=== PATIENT | male | born 1945 | race Caucasian/White ===

== ENCOUNTER 2019-09-08 15:02 | Emergency (ER) | payer MEDICARE, OTHER ==
[~2019-09-08] VITALS: Ht 183 cm; Wt 79.1 kg
[~2019-09-08 15:02] MED LIST: LEVE500T99 PO
[2019-09-08 16:00] VITALS: BP 125/79
[2019-09-08] MEDS ORDERED: LACTATED RINGERS 1,000 ML IV ONE (16:17)
[2019-09-08 16:26] LABS: BASOPHILS % (AUTO) 0 % (0-10); EOSINOPHILS % (AUTO) 0 % (0-10); HEMATOCRIT 36 % (40-54); LYMPHOCYTES # (AUTO) 0.7 X 10^3 (1.0-4.0); LYMPHOCYTES % (AUTO) 10 % (12-44); MEAN CORPUSCULAR HEMOGLOBIN 31 PG (25-34); MEAN CORPUSCULAR HGB CONC 33 G/DL (32-36); MEAN CORPUSCULAR VOLUME 92 FL (80-99); MEAN PLATELET VOLUME 10.4 FL (7.4-10.4); MONOCYTES # (AUTO) 0.2 X 10^3 (0.0-1.0); MONOCYTES % (AUTO) 3 % (0-12); NEUTROPHILS # (AUTO) 5.5 X 10^3 (1.8-7.8); NEUTROPHILS % (AUTO) 87 % (42-75); PLATELET COUNT 162 10^3/uL (130-400); RED CELL DISTRIBUTION WIDTH 13.3 % (10.0-14.5); WHITE BLOOD COUNT 6.3 10^3/uL (4.3-11.0)
[2019-09-08 16:30] VITALS: BP 124/74
[2019-09-08 16:40] LABS: ALANINE AMINOTRANSFERASE 17 U/L (0-55); ALBUMIN 4.2 GM/DL (3.2-4.5); ALKALINE PHOSPHATASE 48 U/L (40-136); BILIRUBIN,TOTAL 0.5 MG/DL (0.1-1.0); BUN/CREATININE RATIO 18; CALCIUM 9.3 MG/DL (8.5-10.1); CARBON DIOXIDE 28 MMOL/L (21-32); CHLORIDE 106 MMOL/L (98-107); GFR ESTIMATED > 60; GLUCOSE 113 MG/DL (70-105); SODIUM 141 MMOL/L (135-145); TOTAL PROTEIN 7.1 GM/DL (6.4-8.2)
[2019-09-08 16:53] LABS: BAND NEUTROPHILS 4 %; LYMPHOCYTES % (MANUAL) 12 %; MONOCYTES % (MANUAL) 3 %; NEUTROPHILS % (MANUAL) 81 %
--- NOTE | 2019-09-08 16:56 | ED Syncope ---
General Chief Complaint: Dizziness/Syncope Stated Complaint: FAINTED AT 2PM Nursing Triage Note: STATES PT HAD A SYNCOPAL EPISODE ABOUT 1400, TWO OTHER SLIGHT EPISODES, VOMITED ONCE. PT WAS IN ER [place] IN 06/2019 FOR THE SAME. HAPPENED IN A CHAIR, DENIES ANY FALL. History of Present Illness Date Seen by Provider: Sep 08, 2019 Time Seen by Provider: 16:00 Initial Comments 74-year-old male presents after an episode of a focal seizure at approximately 1400 today. He also reports 3 episodes of vomiting throughout today. He's been having approximately one to 2 episodes of syncope or focal seizures a month that began in April 2019. In June 2019 he was seen by a neurologist who started him on Keppra 500 mg twice daily. A few days after this he was started on Dilantin, by Dr. cai and he stopped the Keppra. Approximately 2 weeks ago he ran out of the Dilantin and did not get it refilled. He has been off all seizure medicine for 2 weeks and this is his first episode. His and son are present, he denies any episodes while on seizure medication. He reports eating breakfast this morning. However he vomited about noontime and then did not eat lunch after that. He is been taking minimal water today. He has no his tory of diabetes. He denies any complaints at this time. His is usually able to stimulate him by touching his face or yelling at him and he comes out of the episode. He is to follow-up with his neurologist on 09/14/19. Timing/Prior Episodes: Recent History Symptoms Prior to Episode: Lightheadedness Precipitating Factors: None Loss of Consciousness: No Loss of Consciousness Current Symptoms: Back to Normal; No Blurred Vision, No Chest Pain, No Diaphoresis, No Dizziness, No Headache, No Injury, No Lightheadedness, No Loss of Bladder Control, No Loss of Bowel Control, No Motionless, No Nausea, No Pale, No Shallow/Rapid Breathing, No Weak/Absent Pulse, No Weakness Allergies and Home Medications Allergies Coded Allergies: No Known Drug Allergies (Unverified , 07/13/19) Home Medications Levetiracetam 500 Mg Tablet, 500 MG PO BID Prescribed by: SAUL EMMANUEL on 07/13/19 0142 Patient Home Medication List Home Medication List Reviewed: Yes Review of Systems Constitutional: no symptoms reported, see HPI Cardiovascular: see HPI; No chest pain; syncope Psychiatric/Neurological: See HPI, Seizure All Other Systems Reviewed Negative Unless Noted: Yes Past Ymwjboi-Ckzbsy-Jrzdlf Hx Past Med/Social Hx: Reviewed Nursing Past Med/Soc Hx Patient Social History Alcohol Use: Denies Use Recreational Drug Use: No Smoking Status: Never a Smoker 2nd Hand Smoke Exposure: No Recent Foreign Travel: Yes ([facility]) Contact w/Someone Who Travel: Yes ([facility]) Recent Infectious Disease Expo: No Recent Hopitalizations: No Seasonal Allergies Seasonal Allergies: No Past Medical History Surgeries: Yes (neck/spinal surgery, hernia repair) Orthopedic Respiratory: Yes Sleep Apnea Currently Using CPAP: Yes Currently Using BIPAP: No Cardiac: Yes (LOW B/P) Neurological: Yes Spinal Cord Injury Genitourinary: No Gastrointestinal: Yes Chronic Constipation Musculoskeletal: Yes Back Injury Endocrine: No HEENT: No Cancer: No Psychosocial: No Integumentary: No Physical Exam Vital Signs Vital Signs - First Documented 09/08/19 15:34 Temp 36.6 Pulse 62 Resp 20 B/P (MAP) 134/70 (91) O2 Delivery Room Air Capillary Refill : Less Than 3 Seconds Height, Weight, BMI Height: '" Weight: lbs. oz. kg; 23.00 BMI Method: General Appearance: No Apparent Distress, WD/WN HEENT: PERRL/EOMI, TMs Normal, Normal ENT Inspection, Pharynx Normal Neck: Full Range of Motion, Normal Inspection, Non Tender, Supple Cardiovascular: Regular Rate, Rhythm, Normal Peripheral Pulses Respiratory: Chest Non Tender, Lungs Clear, Normal Breath Sounds Gastrointestinal: Normal Bowel Sounds, Non Tender, Soft Extremities: Normal Capillary Refill, Non Tender, Pedal Edema (right 2+, left 1+) Neurologic/Psychiatric: Alert, Oriented x3, No Motor/Sensory Deficits, Normal Mood/Affect Coordination/Gait: Normal Finger to Nose, Normal Gait Motor/Sensory: No Motor Deficit, No Sensory Deficit Skin: Normal Color, Warm/Dry Progress/Results/Core Measures Results/Orders Lab Results Laboratory Tests Test 09/08/19 16:04 09/08/19 16:10 09/08/19 17:16 Range/Units Glucometer 104 70-110 MG/DL White Blood Count 6.3 4.3-11.0 10^3/uL Red Blood Count 3.94 L 4.35-5.85 10^6/uL Hemoglobin 12.0 L 13.3-17.7 G/DL Hematocrit 36 L 40-54 % Mean Corpuscular Volume 92 80-99 FL Mean Corpuscular Hemoglobin 31 25-34 PG Mean Corpuscular Hemoglobin Concent 33 32-36 G/DL Red Cell Distribution Width 13.3 10.0-14.5 % Platelet Count 162 130-400 10^3/uL Mean Platelet Volume 10.4 7.4-10.4 FL Neutrophils (%) (Auto) 87 H 42-75 % Lymphocytes (%) (Auto) 10 L 12-44 % Monocytes (%) (Auto) 3 0-12 % Eosinophils (%) (Auto) 0 0-10 % Basophils (%) (Auto) 0 0-10 % Neutrophils # (Auto) 5.5 1.8-7.8 X 10^3 Lymphocytes # (Auto) 0.7 L 1.0-4.0 X 10^3 Monocytes # (Auto) 0.2 0.0-1.0 X 10^3 Eosinophils # (Auto) 0.0 0.0-0.3 10^3/uL Basophils # (Auto) 0.0 0.0-0.1 10^3/uL Neutrophils % (Manual) 81 % Lymphocytes % (Manual) 12 % Monocytes % (Manual) 3 % Band Neutrophils 4 % Sodium Level 141 135-145 MMOL/L Potassium Level 4.0 3.6-5.0 MMOL/L Chloride Level 106 98-107 MMOL/L Carbon Dioxide Level 28 21-32 MMOL/L Anion Gap 7 5-14 MMOL/L Blood Urea Nitrogen 14 7-18 MG/DL Creatinine 0.80 0.60-1.30 MG/DL Estimat Glomerular Filtration Rate > 60 BUN/Creatinine Ratio 18 Glucose Level 113 H 70-105 MG/DL Calcium Level 9.3 8.5-10.1 MG/DL Corrected Calcium 9.1 8.5-10.1 MG/DL Total Bilirubin 0.5 0.1-1.0 MG/DL Aspartate Amino Transf (AST/SGOT) 24 5-34 U/L Alanine Aminotransferase (ALT/SGPT) 17 0-55 U/L Alkaline Phosphatase 48 40-136 U/L Troponin I < 0.028 <0.028 NG/ML Total Protein 7.1 6.4-8.2 GM/DL Albumin 4.2 3.2-4.5 GM/DL Thyroid Stimulating Hormone (TSH) 1.38 0.35-4.94 UIU/ML Urine Color YELLOW Urine Clarity CLEAR Urine pH 6.5 5-9 Urine Specific [place] 1.015 L 1.016-1.022 Urine Protein NEGATIVE NEGATIVE Urine Glucose (UA) NEGATIVE NEGATIVE Urine Ketones TRACE H NEGATIVE Urine Nitrite NEGATIVE NEGATIVE Urine Bilirubin NEGATIVE NEGATIVE Urine Urobilinogen 0.2 < = 1.0 MG/DL Urine Leukocyte Esterase NEGATIVE NEGATIVE Urine RBC (Auto) NEGATIVE NEGATIVE Urine RBC RARE /HPF Urine WBC RARE /HPF Urine Squamous Epithelial Cells 0-2 /HPF Urine Crystals NONE /LPF Urine Bacteria NEGATIVE /HPF Urine Casts NONE /LPF Urine Mucus SMALL H /LPF Urine Culture Indicated NO My Orders Orders - RUBI HA Accucheck Stat ONCE (09/08/19 15:29) Cbc With Automated Diff (09/08/19 16:17) Comprehensive Metabolic Panel (09/08/19 16:17) Dilantin (Phenytoin) (09/08/19 16:17) Thyroid Stimulating Hormone (09/08/19 16:17) Ua Culture If Indicated (09/08/19 16:17) Troponin I (09/08/19 16:17) Ed Iv/Invasive Line Start (09/08/19 16:17) Lactated Ringers (Lr 1000 Ml Iv Solution (09/08/19 16:17) Ekg Tracing (09/08/19 16:17) Manual Differential (09/08/19 16:10) Phenytoin Capsule (Dilantin Capsule) (09/08/19 17:30) Medications Given in ED Current Medications Medications Dose Ordered Sig/Jonnie Route Start Time Stop Time Status Last Admin Dose Admin Lactated Ringer's 1,000 ml @ 0 mls/hr Q0M ONCE IV 09/08/19 16:17 09/08/19 16:19 DC 09/08/19 16:27 0 MLS/HR Phenytoin Sodium 100 mg ONCE ONCE PO 09/08/19 17:30 09/08/19 17:31 DC 09/08/19 17:52 100 MG Vital Signs/I&O 09/08/19 15:34 Temp 36.6 Pulse 62 Resp 20 B/P (MAP) 134/70 (91) O2 Delivery Room Air Blood Pressure Mean: 91 FSBG Bedside Testing Finger Stick Blood Glucose: 104 Progress Progress Note : Time: 16:00 Progress Note Patient seen and evaluated, will obtain labs, LR 1 L IV here and continue to monitor. 1640 No further episodes in ED. Awaiting lab results. No n/v. 1700 Labs all WNL. Patient agreeable to resuming Dilantin. Will give her evening dose of Dilantin now, the patient will get his prescription refilled in [place] for tomorrow's doses. He will keep his scheduled appointment with neurology in [place] for next week. 1730 discharge instructions and return precautions reviewed with the patient and family. All questions answered. Initial ECG Impression Date: Sep 08, 2019 Initial ECG Impression Time: 16:10 Initial ECG Rate: 57 Initial ECG Rhythm: Normal Sinus Initial ECG Intervals: Normal Initial ECG Intervals MI 200, QRSD 106, QT 440 QTC 429. Mackay P 67, QRS 3, T 37. Initial ECG Impression: Normal Initial ECG Comparisson: No Previous ECG Available Comment Reviewed with Dr. Moody, agreed with interpretation. Departure Impression Primary Impression: Focal seizure Disposition: 01 HOME, SELF-CARE Condition: Improved Departure-Patient Inst. Decision time for Depature: 17:30 Referrals: DANIELLE CAI MD (PCP/Family) Primary Care Physician Patient Instructions: Seizures, Adult (DC) Add. Discharge Instructions: Keep taking your Dilantin, get it refilled at [facility] pharmacy. You have been giving her evening dose tonight, start taking your prescription tomorrow morning. Keep your scheduled appointment with the neurologist in [place] for early next week. Track any seizure activity. No driving, until evaluated by your neurologist and cleared. Return to the emergency department for new, urgent health care needs. All discharge instructions reviewed with patient and/or family. Voiced understanding. Copy Copies To 1: DANIELLE CAI MD, AMY ARNP Sep 08, 2019 16:56
[2019-09-08 17:00] VITALS: BP 126/78
[2019-09-08] MEDS ORDERED: PHENYTOIN 100 MG (DILANTIN) CAP PO ONE (17:30)
[2019-09-08 17:45] VITALS: BP 120/72
[2019-09-08 17:49] LABS: BILIRUBIN,URINE NEGATIVE (NEGATIVE); CLARITY,URINE CLEAR; COLOR,URINE YELLOW; GLUCOSE, URINE (UA) NEGATIVE (NEGATIVE); KETONES,URINE TRACE (NEGATIVE); LEUKOCYTE ESTERASE ,URINE NEGATIVE (NEGATIVE); NITRITE,URINE NEGATIVE (NEGATIVE); PH,URINE 6.5 (5-9); PROTEIN,URINE NEGATIVE (NEGATIVE)
[2019-09-08 18:03] LABS: BACTERIA,URINE NEGATIVE /HPF; RBC,URINE RARE /HPF; SQUAMOUS EPITHELIAL CELL,UR 0-2 /HPF; WBC,URINE RARE /HPF
== END 2019-09-08 16:45 | disposition home or self-care (01) ==
LOC: EDUNIT# 15:02 → ER 15:06
DX: G40.109 Localization-related (focal) (partial) symptomatic epilepsy and epileptic syndromes with simple partial seizures, not intractable, without status epilepticus (principal)
CPT/HCPCS: 36415; 80053; 80185; 81000; 82962; 84443; 84484; 85007; 85027; 93005

== ENCOUNTER 2023-06-04 13:13 | Inpatient (IN) | payer MEDICARE, OTHER ==
[~2023-06-04] VITALS: Ht 180 cm; Wt 72.8 kg
[2023-06-04] MEDS ORDERED: ACETAMINOPHEN 500 MG TABLET PO ONE (14:00)
[2023-06-04] MEDS ORDERED: NS IV 1000 ML 1,000 ML IV SCH ×2 (14:00→15:30)
[2023-06-04 14:04] LABS: BASOPHILS % (AUTO) 0 % (0-10); EOSINOPHILS % (AUTO) 0 % (0-10); HEMATOCRIT 36 % (40-54); HEMOGLOBIN 12.5 g/dL (13.3-17.7); LYMPHOCYTES # (AUTO) 0.5 10^3/uL (1.0-4.0); LYMPHOCYTES % (AUTO) 5 % (12-44); MEAN CORPUSCULAR HEMOGLOBIN 32 pg (25-34); MEAN CORPUSCULAR HGB CONC 34 g/dL (32-36); MEAN CORPUSCULAR VOLUME 92 fL (80-99); MONOCYTES # (AUTO) 0.9 10^3/uL (0.0-1.0); MONOCYTES % (AUTO) 10 % (0-12); NEUTROPHILS % (AUTO) 85 % (42-75); PLATELET COUNT 166 10^3/uL (130-400); WHITE BLOOD COUNT 9.4 10^3/uL (4.3-11.0)
--- NOTE | 2023-06-04 14:04 | ED General ---
General Chief Complaint: General Problems/Pain Stated Complaint: FALL/WEAKNESS Nursing Triage Note: PT ARRIVES TO ER VIA W/C WITH SPOUSE. SPOUSE REPORTS INCREASE IN WEAKNESS, CONFUSION. REPORTS SEVERAL FALLS RECENTLY. PT SENT FORM CLINIC. Source of Information: Patient, Family Exam Limitations: Other (clinical condition) (PATRICE HOBSON APRN) History of Present Illness Date Seen by Provider: Jun 04, 2023 Time Seen by Provider: 13:50 Initial Comments 77-year-old male presents to the ER with for concerns of multiple falls, increased weakness, confusion, and cough for the last 2 days. When asked patient why he was here, he just gave me a blank stare. But he was able to answer other questions. He denied headache, chest pain, shortness of air, abdominal pain, nausea, vomiting, diarrhea, dysuria, sore throat. He is alert, oriented to place and month. He did not know the year. Patient was found to have a fever here. reports that patient has had multiple falls, yesterday he fell and hit his head, presents with laceration to the top/posterior aspect of his head. He has a small laceration of next to his right eyebrow, states that it was from the fall today. 1 other abrasion to his right hand, no other injuries noted. (PATRICE HOBSON APRN) Allergies and Home Medications Allergies Coded Allergies: No Known Drug Allergies (Unverified , 07/13/19) Patient Home Medication List Home Medication List Reviewed: Yes (PATRICE HOBSON APRN) Aspirin (Aspirin EC) 81 Mg Tablet., 81 MG PO Q48H, (Reported) Entered as Reported by: ELIO JOHNSON on 06/05/231440 Last Action: Reviewed Finasteride (Finasteride) 5 Mg Tablet, 5 MG PO DAILY, (Reported) Entered as Reported by: ELIO JOHNSON on 06/05/231440 Last Action: Reviewed Levothyroxine Sodium (Levothyroxine Sodium) 50 Mcg Tablet, 50 MCG PO DAILY, (Reported) Entered as Reported by: ELIO JOHNSON on 06/05/231440 Last Action: Reviewed Midodrine HCl (Midodrine HCl) 5 Mg Tablet, 5 MG PO DAILY, (Reported) Entered as Reported by: ELIO JOHNSON on 06/05/231440 Last Action: Reviewed Multivitamin (Multivitamin) 1 Each Tablet, 1 EACH PO DAILY, (Reported) Entered as Reported by: ELIO JOHNSON on 06/05/231440 Last Action: Reviewed Discontinued Medications Levetiracetam (Keppra) 500 Mg Tablet, 500 MG PO BID Discontinued Reason: No Longer Taking Prescribed by: SAUL EMMANUEL on 07/13/19 1747 Last Action: Discontinued Review of Systems Review of Systems Constitutional: see HPI (PATRICE HOBSON APRN) Past Aexypia-Ltgqnf-Xxqxdc Hx Patient Social History Tobacco Use?: No Use of E-Cig and/or Vaping dev: No Substance use?: No Alcohol Use?: No Pt feels they are or have been: No (PATRICE HOBSON APRN) Immunizations Up To Date First/Initial COVID19 Vaccinat: RECEIVED, UNK WHEN Second COVID19 Vaccination Delfino: RECEIVED, UNK WHEN (PATRICE HOBSON APRN) Seasonal Allergies Seasonal Allergies: No (PATRICE HOBSON APRN) Past Medical History Surgeries: Yes (neck/spinal surgery, hernia repair) Orthopedic Respiratory: Yes Sleep Apnea Currently Using CPAP: Yes Currently Using BIPAP: No Cardiac: Yes (LOW B/P) Neurological: Yes Spinal Cord Injury Genitourinary: No Gastrointestinal: Yes Chronic Constipation Musculoskeletal: Yes Back Injury Endocrine: No HEENT: No Cancer: No Psychosocial: No Integumentary: No (PATRICE HOBSON APRN) Physical Exam-Suspected Sepsis Physical Exam Vital Signs Vital Signs - First Documented 06/04/23 06/04/23 13:26 20:36 Temp 39.1 Pulse 75 Resp 16 B/P (MAP) 120/69 (86) Pulse Ox 92 O2 Delivery Room Air FiO2 45 (JOSUE REYES MD) Vital Signs Capillary Refill : (PATRICE HOBSON APRN) Blood Pressure Mean: 86 Height, Weight, BMI Height: '" Weight: lbs. oz. kg; 24.00 BMI Method: General Appearance: No Apparent Distress, WD/WN Neck: Normal Inspection, Supple Respiratory: No Accessory Muscle Use, No Respiratory Distress, Decreased Breath Sounds Cardiovascular: Regular Rate, Rhythm Extremity: Normal Inspection, Normal Range of Motion Neurologic/Psychiatric: Alert; No Oriented x3; Normal Mood/Affect Skin: normal color, warm/dry (PATRICE HOBSON APRN) Focused Exam Lactate Level 06/04/23 13:25: Lactic Acid Level 0.86 (JOSUE REYES MD) Progress/Results/Core Measures Suspected Sepsis SIRS Temperature: Pulse: 75 Respiratory Rate: 16 Laboratory Tests 06/04/23 13:25: White Blood Count 9.4 Blood Pressure 120 /69 Mean: 86 06/04/23 13:25: Lactic Acid Level 0.86 Laboratory Tests 06/04/23 13:25: Creatinine 0.91, INR Comment 1.1, Platelet Count 166, Total Bilirubin 0.7 (PATRICE HOBSON APRN) Results/Orders Lab Results Laboratory Tests Test 06/04/23 13:25 06/04/23 19:45 06/05/23 05:15 06/06/23 04:26 Range/Units White Blood Count 9.4 8.0 8.7 4.3-11.0 10^3/uL Red Blood Count 3.94 L 3.95 L 3.47 L 4.30-5.52 10^6/uL Hemoglobin 12.5 L 12.3 L 11.0 L 13.3-17.7 g/dL Hematocrit 36 L 37 L 32 L 40-54 % Mean Corpuscular Volume 92 94 93 80-99 fL Mean Corpuscular Hemoglobin 32 31 32 25-34 pg Mean Corpuscular Hemoglobin Concent 34 33 34 32-36 g/dL Red Cell Distribution Width 13.0 13.2 13.2 10.0-14.5 % Platelet Count 166 145 138 130-400 10^3/uL Mean Platelet Volume 11.0 11.5 11.2 9.0-12.2 fL Immature Granulocyte % (Auto) 0 0 0 % Neutrophils (%) (Auto) 85 H 79 H 80 H 42-75 % Lymphocytes (%) (Auto) 5 L 11 L 12 12-44 % Monocytes (%) (Auto) 10 9 9 0-12 % Eosinophils (%) (Auto) 0 0 0 0-10 % Basophils (%) (Auto) 0 0 0 0-10 % Neutrophils # (Auto) 8.0 H 6.4 6.9 1.8-7.8 10^3/uL Lymphocytes # (Auto) 0.5 L 0.9 L 1.0 1.0-4.0 10^3/uL Monocytes # (Auto) 0.9 0.8 0.8 0.0-1.0 10^3/uL Eosinophils # (Auto) 0.0 0.0 0.0 0.0-0.3 10^3/uL Basophils # (Auto) 0.0 0.0 0.0 0.0-0.1 10^3/uL Immature Granulocyte # (Auto) 0.0 0.0 0.0 0.0-0.1 10^3/uL Neutrophils % (Manual) 84 % Lymphocytes % (Manual) 6 % Monocytes % (Manual) 10 % Blood Morphology Comment NORMAL Prothrombin Time 15.1 H 12.2-14.7 SEC INR Comment 1.1 0.8-1.4 Activated Partial Thromboplast Time 35 24-35 SEC Sodium Level 134 L 141 139 135-145 MMOL/L Potassium Level 3.7 4.4 4.5 3.6-5.0 MMOL/L Chloride Level 101 109 H 107 98-107 MMOL/L Carbon Dioxide Level 23 23 26 21-32 MMOL/L Anion Gap 10 9 6 5-14 MMOL/L Blood Urea Nitrogen 20 H 16 20 H 7-18 MG/DL Creatinine 0.91 0.79 0.78 0.60-1.30 MG/DL Estimat Glomerular Filtration Rate 86 90 91 BUN/Creatinine Ratio 22 20 26 Glucose Level 106 H 109 H 115 H 70-105 MG/DL Lactic Acid Level 0.86 0.50-2.00 MMOL/L Calcium Level 8.4 L 8.4 L 8.2 L 8.5-10.1 MG/DL Corrected Calcium 8.4 L 8.7 8.8 8.5-10.1 MG/DL Total Bilirubin 0.7 0.4 0.4 0.1-1.0 MG/DL Aspartate Amino Transf (AST/SGOT) 50 H 40 H 36 H 5-34 U/L Alanine Aminotransferase (ALT/SGPT) 26 22 23 0-55 U/L Alkaline Phosphatase 36 L 34 L 29 L 40-136 U/L Total Protein 7.3 6.7 6.2 L 6.4-8.2 GM/DL Albumin 4.0 3.6 3.3 3.2-4.5 GM/DL Influenza Type A (RT-PCR) Not Detected Not Detecte Influenza Type B (RT-PCR) Not Detected Not Detecte SARS-CoV-2 RNA (RT-PCR) Detected H Not Detecte Urine Color YELLOW Urine Clarity CLEAR Urine pH 5.0 5-9 Urine Specific [place] <=1.005 1.016-1.022 Urine Protein NEGATIVE NEGATIVE Urine Glucose (UA) NEGATIVE NEGATIVE Urine Ketones 1+ H NEGATIVE Urine Nitrite NEGATIVE NEGATIVE Urine Bilirubin NEGATIVE NEGATIVE Urine Urobilinogen 0.2 < = 1.0 MG/DL Urine Leukocyte Esterase NEGATIVE NEGATIVE Urine RBC (Auto) TRACE H NEGATIVE Urine RBC NONE /HPF Urine WBC NONE /HPF Urine Squamous Epithelial Cells RARE /HPF Urine Crystals NONE /LPF Urine Bacteria NEGATIVE /HPF Urine Casts NONE /LPF Urine Mucus NEGATIVE /LPF Urine Culture Indicated CULTURE PENDING Percent Immature Platelet Fraction 4.9 0.0-7.6 % (JOSUE REYES MD) Micro Results Microbiology 06/04/23 Blood Culture - Preliminary, Resulted 06/04/23 Blood Culture - Preliminary, Resulted (JOSUE REYES MD) My Orders Orders - JOSUE REYES MD Ekg Tracing (06/04/23 13:31) (JOSUE REYES MD) Vital Signs/I&O 06/05/23 06/05/23 06/05/23 06/05/23 19:48 20:00 20:38 22:00 Temp 38.9 Pulse 64 Resp 14 B/P (MAP) 103/59 (74) Pulse Ox 100 98 99 94 O2 Delivery Nasal Cannula Nasal Cannula Nasal Cannula NIV CPAP O2 Flow Rate 5.00 5.00 4.00 FiO2 45 06/06/23 06/06/23 06/06/23 06/06/23 00:00 00:17 03:15 04:00 Pulse 48 51 45 44 Resp 11 13 11 B/P (MAP) 119/65 (83) 126/78 (94) Pulse Ox 100 100 100 O2 Delivery Nasal Cannula Nasal Cannula O2 Flow Rate 5.00 45.00 5.00 (JOSUE REYES MD) Vital Signs/I&O Capillary Refill : (PATRICE HOBSON APRN) Blood Pressure Mean: 86 Progress Note : Progress Note Patient seen and evaluated, resting comfortably in bed, no acute distress. Based on exam and symptoms, differential diagnoses include but is not limited to COVID, flu, pneumonia, UTI, sepsis. Septic work-up initiated including CBC, CMP, coags, blood cultures x2, lactic acid, sputum culture, urinalysis, chest x- ray, COVID and flu swabs. CT head and neck ordered due to multiple falls and reports of pain in his head. 1556 Labs and imaging reviewed. CBC shows normal white count, hemoglobin slightly decreased at 12.5, hematocrit slightly decreased 36, neutrophil p ercentage 85. CMP shows slight decrease sodium 134, BUN 20, creatinine normal 0.91, GFR 86, calcium slightly low 8.4, AST slightly elevated 50. Lactic acid normal. Coags show slightly elevated PT 15.1. Patient is positive for COVID. Flu negative. CT of the head and neck shows no acute findings. There is moderate to severe spinal canal stenosis at C3-C4. Chest x-ray shows multifocal consolidation in the lung bases which may represent pneumonia or aspiration. Rocephin and azithromycin ordered for pneumonia. Nursing staff reports that patient's oxygen dropped to 88% on room air while he was sleeping. Patient's does report that he wears a CPAP at night to sleep. Nursing staff placed him on a couple liters of O2 via nasal cannula. Blood pressure has been soft, it was in the 100 systolic, now it is in the 90s systolic. Patient does have midodrine on his chart, hypotension could be chronic and not related to infection. Due to significant weakness, hypotension, and COVID-pneumonia, I called and spoke with Dr. Olson, hospitalist, for admission. She agrees to admit patient. She would like patient to go to the stepdown unit as an inpatient. She will place admission orders. She would like me to order Decadron 4 mg IV. This has been ordered. (PATRICE HOBSON APRN) Diagnostic Imaging Diagonstic Imaging: CT Plain Films/CT/US/NM/MRI: c-spine, head Comments [facility]. [place], [place] NAME: LETI GONSALES MED REC#: [id number] PT STATUS: REG ER : 1945 PHYSICIAN: PATRICE HOBSON APRN ADMIT DATE: 06/04/23/ER Signed Date of Exam:06/04/23 CT HEAD/CERVICAL SPINE WO PROCEDURE: CT head and CT cervical spine without contrast. TECHNIQUE: Multiple contiguous axial images were obtained through the brain and cervical spine without the use of intravenous contrast. Sagittal and coronal reformations through the cervical spine were then performed. Auto Exposure Controls were utilized during the CT exam to meet ALARA standards for radiation dose reduction. INDICATION: Increased weakness, confusion, fall, headache. COMPARISON: None. FINDINGS: Scattered hypoattenuation within the periventricular and subcortical white matter. Generalized prominence of ventricles and cortical sulci. The andrade-white matter differentiation is preserved. The ventricles and cortical sulci are normal. No midline shift or mass effect. The sella is normal. The subarachnoid cisterns are maintained. There are scattered calcifications of the intracranial vasculature. The skull is intact. The paranasal sinuses and mastoids are clear. The globes and orbits are intact. There is straightening of the cervical lordosis. ACDF from CT for to C7. Moderate multilevel facet arthritis. Moderate to severe multilevel spinal canal or neuroforaminal stenosis. The spinal canal stenosis is most severe at C3-C4 with moderate to severe spinal canal stenosis. IMPRESSION: No acute intracranial hemorrhage. No large vascular territory fitzgerald-white loss. No intracranial mass, midline shift, or hydrocephalus. No acute fracture-dislocation of the cervical spine. Moderate to severe spinal canal stenosis at C3-C4. Dictated by: Dictated on workstation # [id number] Dict: 06/04/23 1445 Trans: 06/04/23 144 [facility] [place] [id number] Interpreted by: ETELVINA ESTEBAN DO Electronically signed by: ETELVINA ESTEBAN DO 06/04/23 1449 Diagonstic Imaging: Xray Plain Films/CT/US/NM/MRI: chest Comments [facility] [place] [place] NAME: LETI GONSALES MED REC#: [id number] PT STATUS: REG ER : 1945 PHYSICIAN: PATRICE HOBSON APRN ADMIT DATE: 06/04/23/ER Signed Date of Exam:06/04/23 CHEST 1 VIEW, AP/PA ONLY CHEST 1 VIEW, AP/PA ONLY Indication: Cough and fever Comparison: 07/10/2019 Findings: Patchy consolidations have developed in both lung bases. Subpleural scarring is noted. No pleural effusion or pneumothorax. Heart is normal in size. Impression: 1. Multifocal consolidations in the lung bases may represent pneumonia or aspiration. 2. Advise followup PA and lateral chest radiographs in 4 weeks after appropriate medical management to ensure resolution. Dictated by: Dictated on workstation # [id number] Dict: 06/04/231509 Trans: 06/04/231509 [facility] [phone] Interpreted by: CARLIE STINSON MD Electronically signed by: CARLIE STINSON MD 06/04/231509 (PATRICE HOBSON APRN) Departure Communication (Admissions) Time/Spoke to Admitting Phy: 15:56 Dr. Olson, hospitalist, see progress note. (PATRICE HOBSON APRN) Impression Primary Impression: COVID Additional Impressions: Pneumonia due to 2019 novel coronavirus Weakness Hypotension Disposition: ADMITTED INPATIENT Condition: Stable Admissions Decision to Admit Reason: Admit from ER (General) Decision to Admit/Date: Jun 04, 2023 Time/Decision to Admit Time: 15:56 (PATRICE HOBSON APRN) Departure-Patient Inst. Referrals: CONSUELO RICHARD MD (PCP) Primary Care Physician DANIELLE CAI MD (Family) Primary Care Physician ATTENDING PHYSICIAN NOTE: I was physically present as attending physician in the emergency department during the care of this patient, but I was not directly involved in the decision making or delivery of care for this patient. (JOSUE REYES MD) PATRICE HOBSON APRN Jun 04, 2023 14:04 JOSUE REYES MD Jun 06, 2023 07:28
[2023-06-04 14:09] LABS: INR 1.1 (0.8-1.4); PROTHROMBIN TIME PATIENT 15.1 SEC (12.2-14.7)
[2023-06-04 14:11] LABS: POTASSIUM 3.7 MMOL/L (3.6-5.0)
[2023-06-04 14:13] LABS: CALCIUM 8.4 MG/DL (8.5-10.1)
[2023-06-04 14:14] LABS: TOTAL PROTEIN 7.3 GM/DL (6.4-8.2)
[2023-06-04 14:16] LABS: BILIRUBIN,TOTAL 0.7 MG/DL (0.1-1.0)
[2023-06-04 14:17] LABS: CREATININE SERUM 0.91 MG/DL (0.60-1.30)
[2023-06-04 14:26] LABS: LYMPHOCYTES % (MANUAL) 6 %; MONOCYTES % (MANUAL) 10 %; NEUTROPHILS % (MANUAL) 84 %; RBC MORPH NORMAL
--- NOTE | 2023-06-04 14:51 | Diagnostic Imaging Report ---
PROCEDURE: CT head and CT cervical spine without contrast. TECHNIQUE: Multiple contiguous axial images were obtained through the brain and cervical spine without the use of intravenous contrast. Sagittal and coronal reformations through the cervical spine were then performed. Auto Exposure Controls were utilized during the CT exam to meet ALARA standards for radiation dose reduction. INDICATION: Increased weakness, confusion, fall, headache. COMPARISON: None. FINDINGS: Scattered hypoattenuation within the periventricular and subcortical white matter. Generalized prominence of ventricles and cortical sulci. The andrade-white matter differentiation is preserved. The ventricles and cortical sulci are normal. No midline shift or mass effect. The sella is normal. The subarachnoid cisterns are maintained. There are scattered calcifications of the intracranial vasculature. The skull is intact. The paranasal sinuses and mastoids are clear. The globes and orbits are intact. There is straightening of the cervical lordosis. ACDF from CT for to C7. Moderate multilevel facet arthritis. Moderate to severe multilevel spinal canal or neuroforaminal stenosis. The spinal canal stenosis is most severe at C3-C4 with moderate to severe spinal canal stenosis. IMPRESSION: No acute intracranial hemorrhage. No large vascular territory fitzgerald-white loss. No intracranial mass, midline shift, or hydrocephalus. No acute fracture-dislocation of the cervical spine. Moderate to severe spinal canal stenosis at C3-C4. Dictated by: Dictated on workstation # [id number]
--- NOTE | 2023-06-04 15:12 | Diagnostic Imaging Report ---
CHEST 1 VIEW, AP/PA ONLY Indication: Cough and fever Comparison: 07/10/2019 Findings: Patchy consolidations have developed in both lung bases. Subpleural scarring is noted. No pleural effusion or pneumothorax. Heart is normal in size. Impression: 1. Multifocal consolidations in the lung bases may represent pneumonia or aspiration. 2. Advise followup PA and lateral chest radiographs in 4 weeks after appropriate medical management to ensure resolution. Dictated by: Dictated on workstation # [id number]
[2023-06-04] MEDS ORDERED: AZITHROMYCIN INJECTION 500 MG in NS (IVPB) 250 ML 250 ML IV ONE ×2 (15:30→17:30)
[2023-06-04] MEDS ORDERED: cefTRIAXone IV/IM 1,000 MG in NS (IVPB) 50 ML 50 ML IV ONE (15:30)
[2023-06-04] MEDS ORDERED: dexAMETHasone INJ 4 MG/ML SDV IV ONE (16:00)
[2023-06-04] MEDS ORDERED: ONDANSETRON INJECTION 4 MG/2 ML (SDV) IV PRN (17:30)
[2023-06-04] MEDS ORDERED: diphenhydrAMINE 25 MG TABLET PO PRN (17:30)
[2023-06-04] MEDS ORDERED: MILK OF MAGNESIA 400 MG/5 ML 30 ML UDC PO PRN (17:30)
[2023-06-04] MEDS ORDERED: LACTULOSE SYRUP 10GM/15ML 30ML UDC PO PRN (17:30)
[2023-06-04] MEDS ORDERED: ACETAMINOPHEN 325 MG TABLET PO PRN (17:30)
[2023-06-04] MEDS ORDERED: ANTACID SUSPENSION 30 ML UDC PO PRN (17:30)
[2023-06-04] MEDS ORDERED: CALCIUM CARBONATE 500 MG CHEW TABLET PO PRN (17:30)
[2023-06-04] MEDS ORDERED: diphenhydrAMINE INJ 50 MG/ML VIAL IVP PRN (17:30)
[2023-06-04] MEDS ORDERED: oxyCODONE IMMEDIATE RELEASE 5 MG TABLET PO PRN (17:30)
[2023-06-04] MEDS ORDERED: HYDROmorphone INJECTION 2 MG/ML VIAL IV PRN (17:30)
[2023-06-04] MEDS ORDERED: ONDANSETRON 4 MG ORAL DISSOLVE TABLET PO PRN (17:30)
[2023-06-04] MEDS ORDERED: BISACODYL 10 MG SUPPOSITORY PR PRN (17:30)
[2023-06-04 17:33] VITALS: BP 103/60
[2023-06-04 18:01] VITALS: BP 130/60
[2023-06-04] MEDS: NS IV 1000 ML 1,000 ML IV SCH (18:16)
[2023-06-04] MEDS: ENOXAPARIN 40 MG/0.4 ML SYRINGE SC SCH (18:17)
[2023-06-04 18:54] VITALS: BP 109/57
[2023-06-04 19:56] LABS: BACTERIA,URINE NEGATIVE /HPF; BILIRUBIN,URINE NEGATIVE (NEGATIVE); CLARITY,URINE CLEAR; COLOR,URINE YELLOW; GLUCOSE, URINE (UA) NEGATIVE (NEGATIVE); KETONES,URINE 1+ (NEGATIVE); LEUKOCYTE ESTERASE ,URINE NEGATIVE (NEGATIVE); NITRITE,URINE NEGATIVE (NEGATIVE); PROTEIN,URINE NEGATIVE (NEGATIVE); SQUAMOUS EPITHELIAL CELL,UR RARE /HPF
[2023-06-04 20:00] VITALS: BP 114/64
[2023-06-04] MEDS: guaiFENesin 600 MG TABLET PO SCH (20:28)
[2023-06-04] MEDS: DOCUSATE SODIUM 100 MG CAPSULE PO SCH (20:28)
[2023-06-04] MEDS: SENNOSIDES 8.6 MG TABLET PO SCH (20:28)
[2023-06-04 22:00] VITALS: BP 116/61
[2023-06-05] VITALS (9 sets, daily range): BP systolic 92–136; BP diastolic 51–73
[2023-06-05 05:50] LABS: BASOPHILS % (AUTO) 0 % (0-10); EOSINOPHILS % (AUTO) 0 % (0-10); HEMATOCRIT 37 % (40-54); HEMOGLOBIN 12.3 g/dL (13.3-17.7); LYMPHOCYTES # (AUTO) 0.9 10^3/uL (1.0-4.0); LYMPHOCYTES % (AUTO) 11 % (12-44); MEAN CORPUSCULAR HEMOGLOBIN 31 pg (25-34); MEAN CORPUSCULAR HGB CONC 33 g/dL (32-36); MEAN CORPUSCULAR VOLUME 94 fL (80-99); MEAN PLATELET VOLUME 11.5 fL (9.0-12.2); MONOCYTES # (AUTO) 0.8 10^3/uL (0.0-1.0); MONOCYTES % (AUTO) 9 % (0-12); NEUTROPHILS # (AUTO) 6.4 10^3/uL (1.8-7.8); NEUTROPHILS % (AUTO) 79 % (42-75); PLATELET COUNT 145 10^3/uL (130-400)
[2023-06-05 06:14] LABS: ALBUMIN 3.6 GM/DL (3.2-4.5); BILIRUBIN,TOTAL 0.4 MG/DL (0.1-1.0); CALCIUM 8.4 MG/DL (8.5-10.1); CREATININE SERUM 0.79 MG/DL (0.60-1.30); POTASSIUM 4.4 MMOL/L (3.6-5.0); TOTAL PROTEIN 6.7 GM/DL (6.4-8.2)
[2023-06-05] MEDS: NS IV 1000 ML 1,000 ML IV SCH ×2 (07:42→21:44)
[2023-06-05] MEDS: dexAMETHasone INJ 10 MG/ML 1 ML VIAL IV SCH (07:43)
[2023-06-05] MEDS: RT-ALBUTEROL HFA 8.5 GM INHALER IH SCH ×2 (08:00→20:38)
[2023-06-05] MEDS: DOCUSATE SODIUM 100 MG CAPSULE PO SCH ×2 (08:35→21:36)
[2023-06-05] MEDS: SENNOSIDES 8.6 MG TABLET PO SCH ×2 (08:35→21:36)
[2023-06-05] MEDS: guaiFENesin 600 MG TABLET PO SCH ×2 (08:50→21:43)
[2023-06-05] MEDS: AZITHROMYCIN 250 MG TABLET PO SCH (08:50)
--- NOTE | 2023-06-05 09:30 | History & Physical ---
STEVEN REDDY [birth year]23929: History of Present Illness History of Present Illness Reason for visit/HPI Pt presented to the ED on 06/04 at 1:50pm due to multiple falls where head injury occurred, weakness, confusion and cough that have been present for the past two days. Pt was seen today and states that his SOB is improving. He has an appetite and was eating his breakfast. Pt states that he still feels weak, this has not worsened or improved. Date of Admission Jun 04, 2023 at 17:09 I consulted on this patient on 06/05/23 09:25 Attending Physician Kimberly Patel MD Admitting Physician Admitting Physician: Sirena Tobar DO Attending Physician: Sirena Tobar DO Consult Allergies and Home Medications Allergies Coded Allergies: No Known Drug Allergies (Unverified , 07/13/19) Patient Home Medication List Aspirin (Aspirin EC) 81 Mg Tablet.dr, 81 MG PO Q48H, (Reported) Entered as Reported by: ELIO JOHNSON on 06/05/231440 Last Action: Reviewed Finasteride (Finasteride) 5 Mg Tablet, 5 MG PO DAILY, (Reported) Entered as Reported by: ELIO JOHNSON on 06/05/231440 Last Action: Reviewed Levothyroxine Sodium (Levothyroxine Sodium) 50 Mcg Tablet, 50 MCG PO DAILY, (Reported) Entered as Reported by: ELIO JOHNSON on 06/05/231440 Last Action: Reviewed Midodrine HCl (Midodrine HCl) 5 Mg Tablet, 5 MG PO DAILY, (Reported) Entered as Reported by: ELIO JOHNSON on 06/05/231440 Last Action: Reviewed Multivitamin (Multivitamin) 1 Each Tablet, 1 EACH PO DAILY, (Reported) Entered as Reported by: ELIO JOHNSON on 06/05/231440 Last Action: Reviewed Discontinued Medications Levetiracetam (Keppra) 500 Mg Tablet, 500 MG PO BID Discontinued Reason: No Longer Taking Prescribed by: SAUL EMMANUEL on 07/13/19 856 Last Action: Discontinued Past Wgvzfgh-Byyfjo-Sadrwn Hx Patient Social History Tobacco Use?: No Use of E-Cig and/or Vaping dev: No Substance use?: No Alcohol Use?: No Pt feels they are or have been: No Immunizations Up To Date First/Initial COVID19 Vaccinat: RECEIVED, UNK WHEN Second COVID19 Vaccination Delfino: RECEIVED, UNK WHEN Seasonal Allergies Seasonal Allergies: No Current Status Advance Directives: Unable to obtain Communicates: Verbally Primary Language: Ecuadorean Preferred Spoken Language: Ecuadorean Is interpretation needed?: No Sensory deficits: Vision impairment Past Medical History Surgeries: Orthopedic Sleep Apnea Currently Using CPAP: Yes Currently Using BIPAP: No Spinal Cord Injury Chronic Constipation Back Injury Review of Systems Constitutional: No chills; weakness EENTM: No hearing loss, No blurred vision Respiratory: cough, short of breath Cardiovascular: No chest pain Gastrointestinal: No abdominal pain Psychiatric/Neurological: Denies Headache Physical Exam Vital Signs Vital Signs - First Documented 06/04/23 06/04/23 13:26 20:36 Temp 39.1 Pulse 75 Resp 16 B/P (MAP) 120/69 (86) Pulse Ox 92 O2 Delivery Room Air FiO2 45 Capillary Refill : Height, Weight, BMI Height: '" Weight: lbs. oz. kg; 24.35 BMI Method: General Appearance: No Apparent Distress HEENT: PERRL/EOMI Neck: Non Tender Respiratory: Chest Non Tender, No Accessory Muscle Use, No Respiratory Distress, Other (coarse breath sounds on left. diminished breath sounds on right.) Cardiovascular: Regular Rate, Rhythm, No Murmur Gastrointestinal: Normal Bowel Sounds, Non Tender, Soft Extremity: Normal Capillary Refill Neurologic/Psychiatric: Alert Assessment/Plan Assessment and Plan Assessment: Pneumonia COVID Hypotension Plan: Pneumonia COVID -continue current tx, monitoring O2 stats Hypotension -pt denies having a handyman -cardiology is consulted SIRENA TOBAR DO 06/05/231932: History of Present Illness History of Present Illness Reason for visit/HPI Chief complaint: Weakness with multiple falls with COVID HPI: This is a 77-year-old male with a past medical history of BERTA on CPAP who presented to the ER with weakness and multiple falls found to have COVID. He was noted he had bradycardia through the night down to the 30s so we will consult cardiology and obtain echocardiogram. Currently he is doing much better and not as confused. at the bedside. Date Seen by a Provider: Jun 05, 2023 Time Seen by a Provider: 11:00 Allergies and Home Medications Allergies Coded Allergies: No Known Drug Allergies (Unverified , 07/13/19) Patient Home Medication List Home Medication List Reviewed: Yes Aspirin (Aspirin EC) 81 Mg Tablet.dr, 81 MG PO Q48H, (Reported) Entered as Reported by: ELIO JOHNSON on 06/05/231440 Last Action: Reviewed Finasteride (Finasteride) 5 Mg Tablet, 5 MG PO DAILY, (Reported) Entered as Reported by: ELIO JOHNSON on 06/05/231440 Last Action: Reviewed Levothyroxine Sodium (Levothyroxine Sodium) 50 Mcg Tablet, 50 MCG PO DAILY, (Reported) Entered as Reported by: ELIO JOHNSON on 06/05/231440 Last Action: Reviewed Midodrine HCl (Midodrine HCl) 5 Mg Tablet, 5 MG PO DAILY, (Reported) Entered as Reported by: ELIO JOHNSON on 06/05/231440 Last Action: Reviewed Multivitamin (Multivitamin) 1 Each Tablet, 1 EACH PO DAILY, (Reported) Entered as Reported by: ELIO JOHNSON on 06/05/231440 Last Action: Reviewed Discontinued Medications Levetiracetam (Keppra) 500 Mg Tablet, 500 MG PO BID Discontinued Reason: No Longer Taking Prescribed by: SAUL EMMANUEL on 07/13/191746 Last Action: Discontinued Past Eiksxgp-Taqwpf-Hvcmal Hx Patient Social History Marrital Status: Employed/Student: retired Smoking Status: Never a Smoker Past Medical History Sleep Apnea Currently Using CPAP: Yes Benign Prostatic Hyperpl Hypothyroidsim Review of Systems Constitutional: see HPI, dizziness, weakness Gastrointestinal: no symptoms reported Physical Exam General Appearance: No Apparent Distress, WD/WN, Chronically ill, Thin Respiratory: Decreased Breath Sounds, Other (coarse breath sounds on left. diminished breath sounds on right.) Cardiovascular: Regular Rate, Rhythm Neurologic/Psychiatric: Alert, Oriented x3, Depressed Affect, Disoriented Assessment/Plan Assessment and Plan Assessment: Pneumonia Acute hypoxic respiratory failure COVID Hypotension BERTA on CPAP Confusion Falls Frail status Advanced age Plan: Antibiotics Cardiac stepdown unit Supportive care Monitor closely Admission Diagnosis Admission Status: Inpatient Order (span 2 midnights) Reason for Inpatient Admission: COVID with bacterial pneumonia and acute hypoxic respiratory failure with weakness and falls Supervisory-Addendum Brief Verification & Attestation Participated in pt care: history, MDM, physical Personally performed: exam, history, MDM, supervision of care Care discussed with: Medical Student Procedures: n/a Results interpretation: Verified all documentation Verification and Attestation of Medical Student E/M Service A medical student performed and documented this service in my presence. I reviewed and verified all information documented by the medical student and made modifications to such information, when appropriate. I personally performed the physical exam and medical decision making. Sirena Tobar, Jun 05, 2023,19:33 SETVEN REDDY Jun 05, 2023 09:30 SIRENA TOBAR DO Jun 05, 2023 19:33
--- NOTE | 2023-06-05 14:07 | Consultation-Cardiology ---
HPI-Cardiology Cardiology Consultation Date of Consultation 06/05/23 Date of Admission Time Seen by Provider: 14:02 Indication: bradycardia HPI Patient is a 77 y/o male with history of BERTA, bradycardia. Currently admitted for pneumonia, COVID +. Noted to have episodes of bradycardia on telemetry, mainly while asleep. 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 Denies any chest pain, dizziness or lightheadeness. Has underlying BERTA and is maintained on CPAP. Currently receiving IV steroids. Home Medications & Allergies Allergies: Coded Allergies: No Known Drug Allergies (Unverified , 07/13/19) Home Medication List Reviewed: Yes MYR-Xaxjbx-Gniyhv Hx Patient Social History Marital Status: Employed/Student: retired Recreational Drug Use: No Smoking Status: Never a Smoker 2nd Hand Smoke Exposure: No Recent Hopitalizations: No Alcohol Use?: No Past Medical History Seizure disorder, BERTA Family Medical History Significant Family History: No Pertinent Family Hx Review of Systems-General Review of Systems Constitutional: No chills; weakness EENTM: No hearing loss, No blurred vision Respiratory: cough, short of breath Cardiovascular: No chest pain Gastrointestinal: No abdominal pain Psychiatric/Neurological: Denies Headache Reviewed Test Results Reviewed Test Results Lab Laboratory Tests 06/04/23 19:45: Urine Color YELLOW, Urine Clarity CLEAR, Urine pH 5.0, Urine Specific [place] <=1.005, Urine Protein NEGATIVE, Urine Glucose (UA) NEGATIVE, Urine Ketones 1+H, Urine Nitrite NEGATIVE, Urine Bilirubin NEGATIVE, Urine Urobilinogen 0.2, Urine Leukocyte Esterase NEGATIVE, Urine RBC (Auto) TRACEH, Urine RBC NONE, Urine WBC NONE, Urine Squamous Epithelial Cells RARE, Urine Crystals NONE, Urine Bacteria NEGATIVE, Urine Casts NONE, Urine Mucus NEGATIVE, Urine Culture Indicated CULTURE PENDING 06/05/23 05:15: White Blood Count 8.0, Red Blood Count 3.95L, Hemoglobin 12.3L, Hematocrit 37L, Mean Corpuscular Volume 94, Mean Corpuscular Hemoglobin 31, Mean Corpuscular Hemoglobin Concent 33, Red Cell Distribution Width 13.2, Platelet Count 145, Mean Platelet Volume 11.5, Immature Granulocyte % (Auto) 0, Neutrophils (%) (Auto) 79H, Lymphocytes (%) (Auto) 11L, Monocytes (%) (Auto) 9, Eosinophils (%) (Auto) 0, Basophils (%) (Auto) 0, Neutrophils # (Auto) 6.4, Lymphocytes # (Auto) 0.9L, Monocytes # (Auto) 0.8, Eosinophils # (Auto) 0.0, Basophils # (Auto) 0.0, Immature Granulocyte # (Auto) 0.0, Sodium Level 141, Potassium Level 4.4, Chloride Level 109H, Carbon Dioxide Level 23, Anion Gap 9, Blood Urea Nitrogen 16, Creatinine 0.79, Estimat Glomerular Filtration Rate 90, BUN/Creatinine Ratio 20, Glucose Level 109H, Calcium Level 8.4L, Corrected Calcium 8.7, Total Bili lópez 0.4, Aspartate Amino Transf (AST/SGOT) 40H, Alanine Aminotransferase (ALT/SGPT) 22, Alkaline Phosphatase 34L, Total Protein 6.7, Albumin 3.6 Physical Exam Physical Exam Vital Signs Vital Signs - First Documented 06/04/23 06/04/23 13:26 20:36 Temp 39.1 Pulse 75 Resp 16 B/P (MAP) 120/69 (86) Pulse Ox 92 O2 Delivery Room Air FiO2 45 Capillary Refill : Height, Weight, BMI Height: '" Weight: lbs. oz. kg; 24.35 BMI Method: General Appearance: No Apparent Distress HEENT: PERRL/EOMI Neck: Non Tender Respiratory: Chest Non Tender, No Accessory Muscle Use, No Respiratory Distress, Other (coarse breath sounds on left. diminished breath sounds on right.) Cardiovascular: Regular Rate, Rhythm, No Murmur Gastrointestinal: Normal Bowel Sounds, Non Tender, Soft Extremity: Normal Capillary Refill Neurologic/Psychiatric: Alert A/P-Cardiology Admission Diagnosis Pneumonia COVID Bradycardia BERTA Assessment/Plan Pneumonia, COVID +, in isolation. Management per medical services Hypotension, reporting history of hypotension. Continue supportive care. Bradycardia, asymptomatic mainly while asleep. 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 Currently on IV steroids. Will continue to monitor on telemetry BERTA, maintained on CPAP Seizure disorder, maintained on Keppra Thank you for allowing us to participate in the management of Mr. Izquierdo. This is Kerri Hernandez PA-C, as a scribe for Dr. Duran. I have discussed with Kerri the management plan of this patient, did not examine the patient to limit exposure to COVID. Reviewed the record, in summary, Patient was admitted with COVID-19 pneumonia he is currently in respiratory isolation, was hypotensive has history of hypertension and noted to have multiple episodes of sinus bradycardia while asleep, patient is receiving IV steroids, his heart rate is in the 70s while awake, I am suspecting that his bradycardia is due to his underlying sleep apnea, patient has history of seizure disorder Echocardiogram results were reviewed Recommend monitoring at this time, does not require any further work-up Thank you for your consultation and please feel free to consult us if needed KERRI HERNANDEZ PA-C Jun 05, 2023 14:07 HILARY DURAN MD Jun 05, 2023 15:42
[2023-06-05] MEDS ORDERED: ASPI-1238 PO (14:41)
[2023-06-05] MEDS ORDERED: MULT-1136 PO (14:41)
[2023-06-05] MEDS ORDERED: LEVO50TA6 PO (14:41)
[2023-06-05] MEDS ORDERED: FINA5TAB6 PO (14:41)
[2023-06-05] MEDS ORDERED: MIDO5TAB3 PO (14:41)
--- NOTE | 2023-06-05 15:13 | Physical Therapy Evaluation ---
PT Evaluation-General Medical Diagnosis Admission Date Jun 04, 2023 at 17:09 Medical Diagnosis: COVID Onset Date: Jun 04, 2023 Therapy Diagnosis Therapy Diagnosis: Gait deficit, strength deficit Precautions Precautions/Isolations: Airborne Isolation, Aspiration, Fall Prevention, Standard Precautions, Pressure Ulcer Weight Bear Status Right Lower Extremity: Right Full Weight Bearing Left Lower Extremity: Left Full Weight Bearing Patient uses AFO in both shoes Referral Physician: Dr. Olson Reason for Referral: Evaluation/Treatment Social History Home: [facility] Current Living Status: Spouse Entry Into Home: Stairs With Railing PT Steps Into Home: 8 Prior Prior Level of Function SCALE: Activities may be completed with or without assistive devices. 7-Exfigxrqxp-gijlwbf completes the activity by him/herself with no assistance from a helper. 5-Set-up or Clean-up Assistance-helper sets up or cleans up; patient completes activity. [place] assists only prior to or following the activity. 4-Supervision or Touching Assistance-helper provides verbal cues and/or touching/steadying and/or contact guard assistance as patient completes activity. Assistance may be provided throughout the activity or intermittently. 3-Partial/Moderate Assistance-helper does LESS THAN HALF the effort. [place] lifts, holds or supports trunk or limbs, but provides less than half the effort. 2-Substantial/Maximal Assistance-helper does MORE THAN HALF the effort. [place] lifts or holds trunk or limbs and provides more than half the effort. 9-Qcyvhbgdk-fsxqkq does ALL the effort. Patient does none of the effort to complete the activity. Or, the assistance of 2 or more helpers is required for the patient to complete the activity. If activity was not attempted, code reason: 7-Patient Refused. 9-Not Applicable-not attempted and the patient did not perform the activity before the current illness, exacerbation or injury. 10-Not Attempted due to Environmental Limitations-(lack of equipment, weather restraints, etc.). 88-Not Attempted due to Medical Conditions or Safety Concerns. Bed Mobility: 6 Transfers (B,C,W/C): 6 Gait: 6 Stairs: 6 Indoor Mobility (Ambulation): Independent Stairs: Independent Prior Devices Use: Walker Cane PT Evaluation-Current Subjective Patient lying supine in bed upon PT arrival, agreeable to treatment. Patient rates pain at 0/10. Objective Patient Orientation: Person, Place, Time, Situation ROM/Strength ROM Lower Extremities Patient unable to fully DF Bilateral ankles. All other planes WFLs bilaterally Strength Lower Extremities 3+/5 BLEs all planes except ankle DF 2/5. Sensory Vision: Wears Glasses Hearing: Functional Sensation Right Lower Extremit: Impaired Sensation Left Lower Extremity: Impaired Transfers Roll Left to Right (QC): 3 Sit to Lying (QC): 3 Lying to Sitting/Side of Bed(Q: 3 Sit to Stand (QC): 3 Chair/Idh-qr-Ammcl Xfer(QC): 3 Gait Does the Patient Walk?: Yes Mode of Locomotion: Walk Anticipated Mode of Locomotion: Walk Distance: 3 Gait Assistive Device: FWW Balance Sitting Static: Good Sitting Dynamic: Good Standing Static: Fair Standing Dynamic: Fair Assessment/Needs Patient tolerated treatment fair. Performs all bed mobility and transfers with min /mod A. Patient does not phani AFOs this session and reports he doesn't always use the at home. Patient ambulates 3 feet with the FWW, with min/mod A and verbal cues for posture, gait pattern, safety and control. Patient in chair post treatment with all needs met, nursing notified, call light in reach and in the room. Rehab Potential: Fair PT Shelter Goals Shelter Goals PT Shelter Goals Time Frame: Jul 20, 2023 Roll Left & Right (QC): 6 Sit to Lying (QC): 6 Lying-Sitting on Side/Bed(QC): 6 Sit to Stand (QC): 6 Chair/Sti-cc-Vtkfh Xfer(QC): 6 Toilet Transfer (QC): 6 Does the Patient Walk: Yes Walk 10 feet (QC): 4 Walk 50ft with 2 Turns (QC): 4 Walk 150 ft (QC): 4 1 Step (curb) (QC): 3 4 Steps (QC): 3 12 Steps (QC): 3 PT Plan Problem List Problem List: Activity Tolerance, Functional Strength, Safety, Balance, Gait, Transfer, Bed Mobility, ROM Treatment/Plan Treatment Plan: Continue Plan of Care Treatment Plan: Bed Mobility, Education, Functional Activity Emperatriz, Functional Strength, Group Therapy, Gait, Safety, Therapeutic Exercise, Transfers Treatment Duration: Jul 20, 2023 Frequency: 6 times per week Estimated Hrs Per Day: .25 hour per day Safety Risks/Education Patient Education: Gait Training, Transfer Techniques Teaching Recipient: Patient, Family Teaching Methods: Demonstration, Discussion Response to Teaching: Verbalize Understanding, Return Demonstration Time Time In: 1442 Time Out: 1508 DATE: Jun 05, 2023 Total Billed Treatment Time: 26 Total Billed Treatment Visit, NAEHED GRAMAJO JOHN A PT Jun 05, 2023 15:13
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
[2023-06-05] MEDS: cefTRIAXone IV/IM 1,000 MG in NS (IVPB) 50 ML 50 ML IV SCH (15:21)
[2023-06-05] MEDS: ENOXAPARIN 40 MG/0.4 ML SYRINGE SC SCH (17:02)
[2023-06-06] VITALS (8 sets, daily range): BP systolic 115–132; BP diastolic 65–81
[2023-06-06 04:33] LABS: BASOPHILS % (AUTO) 0 % (0-10); EOSINOPHILS % (AUTO) 0 % (0-10); MONOCYTES # (AUTO) 0.8 10^3/uL (0.0-1.0)
[2023-06-06 04:35] LABS: HEMATOCRIT 32 % (40-54); LYMPHOCYTES % (AUTO) 12 % (12-44); MEAN CORPUSCULAR HEMOGLOBIN 32 pg (25-34); MEAN CORPUSCULAR HGB CONC 34 g/dL (32-36); MEAN CORPUSCULAR VOLUME 93 fL (80-99); MEAN PLATELET VOLUME 11.2 fL (9.0-12.2); MONOCYTES % (AUTO) 9 % (0-12); NEUTROPHILS # (AUTO) 6.9 10^3/uL (1.8-7.8); NEUTROPHILS % (AUTO) 80 % (42-75); PLATELET COUNT 138 10^3/uL (130-400); WHITE BLOOD COUNT 8.7 10^3/uL (4.3-11.0)
[2023-06-06 04:53] LABS: ALBUMIN 3.3 GM/DL (3.2-4.5); POTASSIUM 4.5 MMOL/L (3.6-5.0)
[2023-06-06 04:54] LABS: CALCIUM 8.2 MG/DL (8.5-10.1)
[2023-06-06 04:55] LABS: TOTAL PROTEIN 6.2 GM/DL (6.4-8.2)
[2023-06-06 04:57] LABS: BILIRUBIN,TOTAL 0.4 MG/DL (0.1-1.0)
[2023-06-06 04:59] LABS: CREATININE SERUM 0.78 MG/DL (0.60-1.30)
--- NOTE | 2023-06-06 08:21 | Cardiology Progress Note ---
Subjective Date Seen by Provider: Jun 06, 2023 Time Seen by Provider: 08:20 Subjective/Events-last exam Patient is sleeping. Still having episodes of bradycardia Focused Exam Lactate Level 06/04/23 13:25: Lactic Acid Level 0.86 Objective-Cardiology Exam Last Set of Vital Signs Vital Signs 06/05/23 06/06/23 06/06/23 22:00 04:00 07:32 Temp 36.2 Pulse 49 Resp 21 B/P (MAP) 127/81 (96) Pulse Ox 100 O2 Delivery Nasal Cannula O2 Flow Rate 5.00 FiO2 45 I&O Intake and Output 06/05/23 23:59 Intake Total 2800 ml Output Total 3100 ml Balance -300 ml Intake Oral 1750 ml IV Total 1050 ml Output Urine Total 3100 ml General: Cooperative, No Acute Distress HEENT: Atraumatic, PERRLA Neck: Supple, No JVD Heart: Regular Rate Abdomen: Normal Bowel Sounds Extremities: No Clubbing Skin: No Rashes Results Lab Laboratory Tests 06/06/23 04:26 A/P-Cardiology Admission Diagnosis Pneumonia COVID Bradycardia BERTA Assessment/Plan Pneumonia, COVID +, in isolation. Management per medical services Hypotension, reporting history of hypotension. Continue supportive care. Bradycardia, asymptomatic mainly while asleep. 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 Currently on IV steroids. Will continue to monitor on telemetry BERTA, maintained on CPAP Seizure disorder, maintained on HILARY Soriano MD Jun 06, 2023 08:21
[2023-06-06] MEDS: guaiFENesin 600 MG TABLET PO SCH ×2 (09:37→20:13)
[2023-06-06] MEDS: AZITHROMYCIN 250 MG TABLET PO SCH (09:37)
[2023-06-06] MEDS: DOCUSATE SODIUM 100 MG CAPSULE PO SCH ×2 (09:37→20:13)
[2023-06-06] MEDS: SENNOSIDES 8.6 MG TABLET PO SCH ×2 (09:37→20:13)
[2023-06-06] MEDS: NS IV 1000 ML 1,000 ML IV SCH (09:38)
[2023-06-06] MEDS: dexAMETHasone INJ 10 MG/ML 1 ML VIAL IV SCH (09:38)
--- NOTE | 2023-06-06 10:45 | Progress Note ---
STEVEN REDDY 06/06/23 1045: Subjective Date Seen by a Provider: Jun 06, 2023 Time Seen by a Provider: 08:30 Subjective/Events-last exam Pt states that he is feeling better than yesterday. Pt's reports that he is looking better than yesterday as well. Pt denied having any CP or SOB. Pt has an appetite and was eating breakfast during exam. Review of Systems General: Appetite HEENT: No Head Aches Cardiovascular: No: Chest Pain Gastrointestinal: No: Nausea, Vomiting, Abdominal Pain Focused Exam Lactate Level 06/04/23 13:25: Lactic Acid Level 0.86 Objective Exam Last Set of Vital Signs Vital Signs Date Time Temp Pulse Resp B/P (MAP) Pulse Ox O2 Delivery O2 Flow Rate FiO2 06/06/23 07:32 36.2 49 21 127/81 (96) 100 06/06/23 04:00 Nasal Cannula 5.00 06/05/23 22:00 45 Capillary Refill : I&O Intake and Output 06/05/23 23:59 Intake Total 2800 ml Output Total 3100 ml Balance -300 ml Intake Oral 1750 ml IV Total 1050 ml Output Urine Total 3100 ml General: Alert, Oriented X3, Cooperative, No Acute Distress HEENT: PERRLA, EOMI Neck: No JVD Lungs: Other (decreased lung sounds b/l. improvement from yesterdays exam.) Heart: Regular Rate, No Murmurs Abdomen: Normal Bowel Sounds, Soft, No Tenderness Extremities: No Clubbing, No Cyanosis Results Lab Laboratory Tests 06/06/23 04:26: White Blood Count 8.7, Red Blood Count 3.47L, Hemoglobin 11.0L, Hematocrit 32L, Mean Corpuscular Volume 93, Mean Corpuscular Hemoglobin 32, Mean Corpuscular Hemoglobin Concent 34, Red Cell Distribution Width 13.2, Platelet Count 138, Mean Platelet Volume 11.2, Immature Granulocyte % (Auto) 0, Neutrophils (%) (Auto) 80H, Lymphocytes (%) (Auto) 12, Monocytes (%) (Auto) 9, Eosinophils (%) (Auto) 0, Basophils (%) (Auto) 0, Neutrophils # (Auto) 6.9, Lymphocytes # (Auto) 1.0, Monocytes # (Auto) 0.8, Eosinophils # (Auto) 0.0, Basophils # (Auto) 0.0, Immature Granulocyte # (Auto) 0.0, Percent Immature Platelet Fraction 4.9, Sodium Level 139, Potassium Level 4.5, Chloride Level 107, Carbon Dioxide Level 26, Anion Gap 6, Blood Urea Nitrogen 20H, Creatinine 0.78, Estimat Glomerular Filtration Rate 91, BUN/Creatinine Ratio 26, Glucose Level 115H, Calcium Level 8.2L, Corrected Calcium 8.8, Total Bilirubin 0.4, Aspartate Amino Transf (AST/SGOT) 36H, Alanine Aminotransferase (ALT/SGPT) 23, Alkaline Phosphatase 29L , Total Protein 6.2L, Albumin 3.3 Microbiology 06/04/23 Blood Culture - Preliminary, Resulted Assessment/Plan Assessment/Plan Assess & Plan/Chief Complaint Assessment: Pneumonia Acute hypoxic respiratory failure COVID Hypotension BERTA on CPAP Plan: Pneumonia -continue Antibiotics Acute hypoxic respiratory failure -Cardiac stepdown unit, plan to transfer to 4th floor COVID -Supportive care BERTA on CPAP -Monitor closely Clinical Quality Measures Admission Status Admission Dx Assessment: Pneumonia COVID Hypotension Plan: Pneumonia COVID -continue current tx, monitoring O2 stats Hypotension -pt denies having a delivery clerk -cardiology is consulted SIRENA TOBAR DO 06/07/23 0457: Subjective Subjective/Events-last exam Patient doing much better Up in chair PT and OT ordered Weaning down oxygen Objective Exam General: Alert, Oriented X3, Cooperative, No Acute Distress Lungs: Clear to Auscultation, Normal Air Movement Heart: Regular Rate, Normal S1, Normal S2, No Murmurs Assessment/Plan Assessment/Plan Assess & Plan/Chief Complaint We will move down to fourth floor Supportive care Supervisory-Addendum Brief Verification & Attestation Participated in pt care: history, MDM, physical Personally performed: exam, history, MDM, supervision of care Care discussed with: Medical Student Procedures: n/a Results interpretation: Verified all documentation Verification and Attestation of Medical Student E/M Service A medical student performed and documented this service in my presence. I reviewed and verified all information documented by the medical student and made modifications to such information, when appropriate. I personally performed the physical exam and medical decision making. Sirena Toabr Jun 07, 2023,04:56 STEVEN REDDY Jun 06, 2023 10:45 SIRENA TOBAR DO Jun 07, 2023 04:57
--- NOTE | 2023-06-06 11:45 | Physical Therapy Daily Note ---
PT Daily Note-Current Subjective Patient agrees to therapy. Spouse present Pain Section J - Health Conditions 1. Rarely or not at all 2. Occasionally 3. Frequently 4. Almost constantly 8. Unable to answer Pain Effect on Sleep: 1 Pain Interference with Therapy: 1 Pain Interference w/Day-to-Day: 1 Mental Status Attachments: Oxygen, IV Transfers SCALE: Activities may be completed with or without assistive devices. 4-Pfbntprsqe-efwdioq completes the activity by him/herself with no assistance from a helper. 5-Set-up or Clean-up Assistance-helper sets up or cleans up; patient completes activity. [place] assists only prior to or following the activity. 4-Supervision or Touching Assistance-helper provides verbal cues and/or touching/steadying and/or contact guard assistance as patient completes activity. Assistance may be provided throughout the activity or intermittently. 3-Partial/Moderate Assistance-helper does LESS THAN HALF the effort. [place] lifts, holds or supports trunk or limbs, but provides less than half the effort. 2-Substantial/Maximal Assistance-helper does MORE THAN HALF the effort. [place] lifts or holds trunk or limbs and provides more than half the effort. 3-Unhhghfxl-xetoam does ALL the effort. Patient does none of the effort to complete the activity. Or, the assistance of 2 or more helpers is required for the patient to complete the activity. If activity was not attempted, code reason: 7-Patient Refused. 9-Not Applicable-not attempted and the patient did not perform the activity before the current illness, exacerbation or injury. 10-Not Attempted due to Environmental Limitations-(lack of equipment, weather restraints, etc.). 88-Not Attempted due to Medical Conditions or Safety Concerns. Lying to Sitting/Side of Bed(Q: 4 Sit to Stand (QC): 3 Chair/Hft-ce-Iewdk Xfer(QC): 3 Weight Bearing Right Lower Extremity: Right Full Weight Bearing Left Lower Extremity: Left Full Weight Bearing Patient uses AFO in both shoes Gait Training Distance: 5' Gait Assistive Device: FWW Assessment Patient requires assist to cleanse and change due to incontinence. Patient up in recliner with needs met. PT Inspector Assembly Goals Alf Goals PT Inspector Assembly Goals Time Frame: Jul 20, 2023 Roll Left & Right (QC): 6 Sit to Lying (QC): 6 Lying-Sitting on Side/Bed(QC): 6 Sit to Stand (QC): 6 Chair/Sjz-tw-Gtwxv Xfer(QC): 6 Toilet Transfer (QC): 6 Does the Patient Walk: Yes Walk 10 feet (QC): 4 Walk 50ft with 2 Turns (QC): 4 Walk 150 ft (QC): 4 1 Step (curb) (QC): 3 4 Steps (QC): 3 12 Steps (QC): 3 PT Plan Treatment/Plan Treatment Plan: Continue Plan of Care Treatment Plan: Bed Mobility, Education, Functional Activity Emperatriz, Functional Strength, Group Therapy, Gait, Safety, Therapeutic Exercise, Transfers Treatment Duration: Jul 20, 2023 Frequency: 6 times per week Estimated Hrs Per Day: .25 hour per day Time Time In: 1130 Time Out: 1141 DATE: Jun 06, 2023 Total Billed Treatment Time: 11 Total Billed Treatment 1 visit FA 11 min GT KEANE PT Jun 06, 2023 11:45
--- NOTE | 2023-06-06 11:50 | Occupational Ther Daily Note ---
OT Current Status-Daily Note Subjective Agreeable to OT, patient anticipated to change rooms Mental Status/Objective Patient Orientation: Person, Place, Time, Situation Attachments: [place] Catheter (victor manueling KEN RN notified), IV, Oxygen, SCD's, Telemetry ADL-Treatment On arrival patient is saturated w/ urine. New linens and gown provided, warm bath wipes for groin area and buttocks. Therapy Code Descriptions/Definitions Functional [place] Measure: 0=Not Assessed/NA 4=Minimal Assistance 1=Total Assistance 5=Supervision or Setup 2=Maximal Assistance 6=Modified [place] 3=Moderate Assistance 7=Complete IndependenceSCALE: Activities may be completed with or without assistive devices. 0-Frjabxbxym-xgpduix completes the activity by him/herself with no assistance from a helper. 5-Set-up or Clean-up Assistance-helper sets up or cleans up; patient completes activity. [place] assists only prior to or following the activity. 4-Supervision or Touching Assistance-helper provides verbal cues and/or touching/steadying and/or contact guard assistance as patient completes activity. Assistance may be provided throughout the activity or intermittently. 3-Partial/Moderate Assistance-helper does LESS THAN HALF the effort. [place] lifts, holds or supports trunk or limbs, but provides less than half the effort. 2-Substantial/Maximal Assistance-helper does MORE THAN HALF the effort. [place] lifts or holds trunk or limbs and provides more than half the effort. 9-Tmhpecdvy-fpirua does ALL the effort. Patient does none of the effort to complete the activity. Or, the assistance of 2 or more helpers is required for the patient to complete the activity. If activity was not attempted, code reason: 7-Patient Refused. 9-Not Applicable-not attempted and the patient did not perform the activity before the current illness, exacerbation or injury. 10-Not Attempted due to Environmental Limitations-(lack of equipment, weather restraints, etc.). 88-Not Attempted due to Medical Conditions or Safety Concerns. Eating (QC): 6 Oral Hygiene (QC): 5 Bathing Location: Buttocks, Perineal Area Shower/Bathe Self (QC): 2 Upper Body Dressing (QC): 2 Lower Body Dressing (QC): 3 Toileting Hygiene (QC): 2 Toilet Transfer (QC): 3 Education OT Patient Education: Modified ADL techniques, Progress toward Goal/Update tx plan, Purpose of tx/functional activities, Reviewed precautions, Rehab process, Safety issues, Transfer techniques Teaching Recipient: Patient, Family Teaching Methods: Demonstration, Discussion Response to Teaching: Reinforcement Needed OT Prison Goals Power Plant Mechanic Goals 1=Demonstrate adherence to instructed precautions during ADL tasks. 2=Patient will verbalize/demonstrate understanding of assistive devices/modifications for ADL. 3=Patient will improve strength/tolerance for activity to enable patient to perform ADL's. OT Education/Plan Problem List/Assessment Assessment: Decreased Activ Tolerance, Impaired Self-Care Skills, Restricted Funct UE ROM Discharge Recommendations Plan/Recommendations: Continue POC Treatment Plan/Plan of Care Treatment,Training & Education: Yes Patient would benefit from OT for education, treatment and training to promote independence in ADL's, mobility, safety and/or upper extremity function for ADL's. Plan of Care: ADL Retraining, Cognitive Retraining, Concurrent Therapy, Functional Mobility, Group Exercise/Act as Ind, UE Funct Exercise/Act, UE Neuromus Re-Ed/Coord Comment Warmed blanket provided, all needs met Treatment Duration: Jun 14, 2023 Frequency: 3 times per week (3-5 tmes per week) Estimated Hrs Per Day: .25 hour per day Agreement: Yes Rehab Potential: Guarded Time Start Time: 11:30 Stop Time: 11:45 DATE: Jun 06, 2023 Total Time Billed (hr/min): 15 Billed Treatment Time ADL 15 min ZHENG HARDIN OT Jun 06, 2023 11:50
[2023-06-06] MEDS: ASPIRIN enteric coated 81MG TABLET PO SCH (13:59)
[2023-06-06] MEDS: cefTRIAXone IV/IM 1,000 MG in NS (IVPB) 50 ML 50 ML IV SCH (14:39)
[2023-06-06] MEDS: RT-ALBUTEROL HFA 8.5 GM INHALER IH SCH (19:15)
[2023-06-06] MEDS: ENOXAPARIN 40 MG/0.4 ML SYRINGE SC SCH (19:56)
[2023-06-07 03:05] VITALS: BP 122/70
[2023-06-07] MEDS: THERAPEUTIC MULTIVITAMIN W/MINERALS TABLET PO SCH (05:41)
[2023-06-07] MEDS: LEVOTHYROXINE 50 MCG TABLET PO SCH (05:42)
[2023-06-07 06:04] LABS: BASOPHILS % (AUTO) 0 % (0-10); EOSINOPHILS % (AUTO) 0 % (0-10); LYMPHOCYTES # (AUTO) 0.6 10^3/uL (1.0-4.0); MEAN PLATELET VOLUME 11.3 fL (9.0-12.2)
[2023-06-07 06:06] LABS: HEMATOCRIT 33 % (40-54); HEMOGLOBIN 10.9 g/dL (13.3-17.7); LYMPHOCYTES % (AUTO) 8 % (12-44); MEAN CORPUSCULAR HEMOGLOBIN 32 pg (25-34); MEAN CORPUSCULAR HGB CONC 34 g/dL (32-36); MEAN CORPUSCULAR VOLUME 94 fL (80-99); MONOCYTES # (AUTO) 0.4 10^3/uL (0.0-1.0); MONOCYTES % (AUTO) 5 % (0-12); NEUTROPHILS # (AUTO) 6.5 10^3/uL (1.8-7.8); NEUTROPHILS % (AUTO) 87 % (42-75); PLATELET COUNT 141 10^3/uL (130-400); WHITE BLOOD COUNT 7.5 10^3/uL (4.3-11.0)
[2023-06-07 06:09] LABS: ALBUMIN 3.3 GM/DL (3.2-4.5)
[2023-06-07 06:10] LABS: POTASSIUM 4.1 MMOL/L (3.6-5.0)
[2023-06-07 06:11] LABS: CALCIUM 8.3 MG/DL (8.5-10.1)
[2023-06-07 06:12] LABS: TOTAL PROTEIN 6.2 GM/DL (6.4-8.2)
[2023-06-07 06:14] LABS: BILIRUBIN,TOTAL 0.6 MG/DL (0.1-1.0)
[2023-06-07 06:16] LABS: CREATININE SERUM 0.75 MG/DL (0.60-1.30)
[2023-06-07 08:05] VITALS: BP 95/55
[2023-06-07] MEDS: SENNOSIDES 8.6 MG TABLET PO SCH ×2 (08:48→19:53)
[2023-06-07] MEDS: DOCUSATE SODIUM 100 MG CAPSULE PO SCH ×2 (08:48→19:53)
[2023-06-07] MEDS: guaiFENesin 600 MG TABLET PO SCH ×2 (08:48→19:53)
[2023-06-07] MEDS: AZITHROMYCIN 250 MG TABLET PO SCH (08:48)
[2023-06-07] MEDS: MIDODRINE 10 MG TABLET PO SCH (08:48)
[2023-06-07] MEDS: FINASTERIDE 5 MG TABLET PO SCH (08:48)
[2023-06-07] MEDS: dexAMETHasone INJ 10 MG/ML 1 ML VIAL IV SCH (08:49)
[2023-06-07] MEDS ORDERED: NON-FORMULARY MEDICATION 1 EA EA (Midodrine HCl 5 MG) PO SCH (09:00)
[2023-06-07] MEDS ORDERED: NON-FORMULARY MEDICATION 1 EA EA (Multivitamin 1 EACH) PO SCH (09:00)
--- NOTE | 2023-06-07 09:22 | Progress Note ---
ANNALISA ZACARIAS MD, RESIDENT 06/07/23 0922: Progress Note Assessment/Plan Date Seen by Provider: Jun 07, 2023 Time Seen by Provider: 08:50 Events since last exam No acute overnight events. Patient stating that he feels the same as he did when he first came in however does note that he is gaining some strength. Does appear to be a little bit confused this morning. He otherwise has no concerns today. He states that he lives with his at home however nurse noted that yesterday when she called in, she appeared to sound quite ill and may also have COVID. Assessment/Plan Assessment: Pneumonia Acute hypoxic respiratory failure COVID Hypotension BERTA on CPAP Plan: Pneumonia -continue IV ceftriaxone and azithromycin Acute hypoxic respiratory failure -Resolved saturating well on room air -Continue to monitor saturations COVID -Supportive care -Continue IV dexamethasone 6 mg daily BERTA on CPAP -CPAP at night Vitals Last set of Vitals Signs Vital Signs Date Time Temp Pulse Resp B/P (MAP) Pulse Ox O2 Delivery O2 Flow Rate FiO2 06/07/23 08:05 36.9 55 16 95/55 (68) 95 Room Air 06/07/23 03:05 06/05/23 22:00 45 I&O I&O Intake and Output 06/06/23 23:59 Intake Total 625 ml Output Total 1952 ml Balance -1327 ml Intake Oral 625 ml Output Urine Total 1952 ml # Voids 1 Labs Laboratory Tests 06/07/23 05:15: White Blood Count 7.5, Red Blood Count 3.46L, Hemoglobin 10.9L, Hematocrit 33L, Mean Corpuscular Volume 94, Mean Corpuscular Hemoglobin 32, Mean Corpuscular Hemoglobin Concent 34, Red Cell Distribution Width 13.2, Platelet Count 141, Mean Platelet Volume 11.3, Immature Granulocyte % (Auto) 0, Neutrophils (%) (Auto) 87H, Lymphocytes (%) (Auto) 8L, Monocytes (%) (Auto) 5, Eosinophils (%) (Auto) 0, Basophils (%) (Auto) 0, Neutrophils # (Auto) 6.5, Lymphocytes # (Auto) 0.6L, Monocytes # (Auto) 0.4, Eosinophils # (Auto) 0.0, Basophils # (Auto) 0.0, Immature Granulocyte # (Auto) 0.0, Percent Immature Platelet Fraction 5.4, Sodium Level 141, Potassium Level 4.1, Chloride Level 108H, Carbon Dioxide Level 27, Anion Gap 6, Blood Urea Nitrogen 16, Creatinine 0.75, Estimat Glomerular Filtration Rate 92, BUN/Creatinine Ratio 21, Glucose Level 90, Calcium Level 8.3L, Corrected Calcium 8.9, Total Bilirubin 0.6, Aspartate Amino Transf (AST/SGOT) 34, Alanine Aminotransferase (ALT/SGPT) 26, Alkaline Phosphatase 31L, Total Protein 6.2L, Albumin 3.3 Microbiology 06/04/23 Urine Culture - Final, Complete See Comments 06/04/23 Blood Culture - Preliminary, Resulted Focused Exam Lactate Level 06/04/23 13:25: Lactic Acid Level 0.86 Respiratory: Chest Non Tender, Lungs Clear, Normal Breath Sounds, No Accessory Muscle Use, No Respiratory Distress Cardiovascular: Regular Rate, Rhythm, No Edema, No Murmur Skin: normal color, warm/dry BRIDGETT TOBAR DO 06/08/23 0554: Progress Note Assessment/Plan Date Seen by Provider: Jun 08, 2023 Time Seen by Provider: 11:00 Events since last exam Patient doing a lot better Working with therapy Cannot go home Will need to stay the weekend and then discharge home with home health Reviewed meds and labs Assessment/Plan Assessment: COVID Weakness Frail status Falls Plan: Continue therapy Discharge home on Saturday with home health Focused Exam Respiratory: Lungs Clear, Normal Breath Sounds ANNALISA ZACARIAS MD, RESIDENT Jun 07, 2023 09:22 BRIDGETT TOBAR DO Jun 08, 2023 05:54
--- NOTE | 2023-06-07 10:06 | Physical Therapy Daily Note ---
PT Daily Note-Current Subjective Patient in bed with bed alarm and telesitter activated. Patient attempting to climb OOB Pain Section J - Health Conditions 1. Rarely or not at all 2. Occasionally 3. Frequently 4. Almost constantly 8. Unable to answer Pain Effect on Sleep: 1 Pain Interference with Therapy: 1 Pain Interference w/Day-to-Day: 1 Transfers SCALE: Activities may be completed with or without assistive devices. 6-Yazokmmoti-kotvypr completes the activity by him/herself with no assistance from a helper. 5-Set-up or Clean-up Assistance-helper sets up or cleans up; patient completes activity. [place] assists only prior to or following the activity. 4-Supervision or Touching Assistance-helper provides verbal cues and/or t ouching/steadying and/or contact guard assistance as patient completes activity. Assistance may be provided throughout the activity or intermittently. 3-Partial/Moderate Assistance-helper does LESS THAN HALF the effort. [place] lifts, holds or supports trunk or limbs, but provides less than half the effort. 2-Substantial/Maximal Assistance-helper does MORE THAN HALF the effort. [place] lifts or holds trunk or limbs and provides more than half the effort. 1-Dwzlglfuh-iirptf does ALL the effort. Patient does none of the effort to complete the activity. Or, the assistance of 2 or more helpers is required for the patient to complete the activity. If activity was not attempted, code reason: 7-Patient Refused. 9-Not Applicable-not attempted and the patient did not perform the activity before the current illness, exacerbation or injury. 10-Not Attempted due to Environmental Limitations-(lack of equipment, weather restraints, etc.). 88-Not Attempted due to Medical Conditions or Safety Concerns. Lying to Sitting/Side of Bed(Q: 3 Sit to Stand (QC): 3 Chair/Tgf-py-Hhwgi Xfer(QC): 3 Weight Bearing Right Lower Extremity: Right Full Weight Bearing Left Lower Extremity: Left Full Weight Bearing Patient uses AFO in both shoes Gait Training Distance: 10' Walk 10 feet (QC): 3 Gait Assistive Device: FWW Assessment Education with patient on use of call light to call for assistance to prevent falls. Chair alarm in place and activated. Patient tolerated treatment. PT Mortgage Closing Clerk Goals Snf Goals PT Snf Goals Time Frame: Jul 20, 2023 Roll Left & Right (QC): 6 Sit to Lying (QC): 6 Lying-Sitting on Side/Bed(QC): 6 Sit to Stand (QC): 6 Chair/Eyg-af-Hjxig Xfer(QC): 6 Toilet Transfer (QC): 6 Does the Patient Walk: Yes Walk 10 feet (QC): 4 Walk 50ft with 2 Turns (QC): 4 Walk 150 ft (QC): 4 1 Step (curb) (QC): 3 4 Steps (QC): 3 12 Steps (QC): 3 PT Plan Treatment/Plan Treatment Plan: Continue Plan of Care Treatment Plan: Bed Mobility, Education, Functional Activity Emperatriz, Functional Strength, Group Therapy, Gait, Safety, Therapeutic Exercise, Transfers Treatment Duration: Jul 20, 2023 Frequency: 6 times per week Estimated Hrs Per Day: .25 hour per day Time Time In: 823 Time Out: 838 DATE: Jun 07, 2023 Total Billed Treatment Time: 15 Total Billed Treatment 1 visit FA 15 min GT KEANE PT Jun 07, 2023 10:06
--- NOTE | 2023-06-07 10:11 | Occupational Ther Daily Note ---
OT Current Status-Daily Note Subjective Increased confusion, OOB w/ fall w/i past 24 hours Mental Status/Objective Patient Orientation: Person Attachments: [place] Catheter, IV ADL-Treatment Required additional cues and physical assistance Therapy Code Descriptions/Definitions Functional [place] Measure: 0=Not Assessed/NA 4=Minimal Assistance 1=Total Assistance 5=Supervision or Setup 2=Maximal Assistance 6=Modified [place] 3=Moderate Assistance 7=Complete IndependenceSCALE: Activities may be completed with or without assistive devices. 0-Gnirkmdbti-obbypwc completes the activity by him/herself with no assistance from a helper. 5-Set-up or Clean-up Assistance-helper sets up or cleans up; patient completes activity. [place] assists only prior to or following the activity. 4-Supervision or Touching Assistance-helper provides verbal cues and/or touching/steadying and/or contact guard assistance as patient completes act ivity. Assistance may be provided throughout the activity or intermittently. 3-Partial/Moderate Assistance-helper does LESS THAN HALF the effort. [place] lifts, holds or supports trunk or limbs, but provides less than half the effort. 2-Substantial/Maximal Assistance-helper does MORE THAN HALF the effort. [place] lifts or holds trunk or limbs and provides more than half the effort. 5-Nmuvuhfjw-limknh does ALL the effort. Patient does none of the effort to complete the activity. Or, the assistance of 2 or more helpers is required for the patient to complete the activity. If activity was not attempted, code reason: 7-Patient Refused. 9-Not Applicable-not attempted and the patient did not perform the activity before the current illness, exacerbation or injury. 10-Not Attempted due to Environmental Limitations-(lack of equipment, weather restraints, etc.). 88-Not Attempted due to Medical Conditions or Safety Concerns. Eating (QC): 3 Oral Hygiene (QC): 3 Shower/Bathe Self (QC): 7 Upper Body Dressing (QC): 2 Lower Body Dressing (QC): 1 On/Off Footwear: 2 Toileting Hygiene (QC): 3 Toilet Transfer (QC): 3 Education OT Patient Education: Correct positioning, Energy conservation, Modified ADL techniques, Progress toward Goal/Update tx plan, Purpose of tx/functional activities, Reviewed precautions, Rehab process, Safety issues, Transfer techniques, Use of adapted equipment Teaching Recipient: Patient Teaching Methods: Demonstration, Discussion Response to Teaching: Unable to Comprehend, Reinforcement Needed OT Assisted Goals Porcelain Mixer Goals 1=Demonstrate adherence to instructed precautions during ADL tasks. 2=Patient will verbalize/demonstrate understanding of assistive devices/modifications for ADL. 3=Patient will improve strength/tolerance for activity to enable patient to perform ADL's. OT Education/Plan Problem List/Assessment Assessment: Decreased Activ Tolerance, Decreased Safety Aware, Decreased UE Strength, Impaired Bed Mobility, Impaired Cognition, Impaired Coordination, Impaired Funct Balance, Impaired Self-Care Skills Discharge Recommendations Plan/Recommendations: Continue POC Treatment Plan/Plan of Care Treatment,Training & Education: Yes Patient would benefit from OT for education, treatment and training to promote independence in ADL's, mobility, safety and/or upper extremity function for ADL's. Plan of Care: ADL Retraining, Cognitive Retraining, Concurrent Therapy, Functional Mobility, Group Exercise/Act as Ind, UE Funct Exercise/Act, UE Neuromus Re-Ed/Coord Treatment Duration: Jun 14, 2023 Frequency: 3 times per week (3-5 tmes per week) Estimated Hrs Per Day: .25 hour per day Agreement: Yes Rehab Potential: Guarded Time Start Time: 08:23 Stop Time: 08:40 DATE: Jun 07, 2023 Total Time Billed (hr/min): 17 Billed Treatment Time ADL 17 min ZHENG HARDIN OT Jun 07, 2023 10:11
[2023-06-07 11:54] VITALS: BP 93/51
--- NOTE | 2023-06-07 12:18 | Cardiology Progress Note ---
Subjective Date Seen by Provider: Jun 07, 2023 Time Seen by Provider: 12:17 Subjective/Events-last exam Patient was seen at bedside sitting comfortably, still having generalized fatigue. Focused Exam Lactate Level 06/04/23 13:25: Lactic Acid Level 0.86 Objective-Cardiology Exam Last Set of Vital Signs Vital Signs 06/05/23 06/06/23 06/07/23 22:00 23:33 11:54 Temp 36.6 Pulse 58 Resp 16 B/P (MAP) 93/51 (65) Pulse Ox 93 O2 Delivery Room Air O2 Flow Rate 45.00 FiO2 45 I&O Intake and Output 06/06/23 23:59 Intake Total 625 ml Output Total 1952 ml Balance -1327 ml Intake Oral 625 ml Output Urine Total 1952 ml # Voids 1 General: Alert, Oriented X3, Cooperative, No Acute Distress HEENT: PERRLA, EOMI Neck: No JVD Lungs: Clear to Auscultation, Normal Air Movement Heart: Regular Rate, Normal S1, Normal S2, No Murmurs Abdomen: Normal Bowel Sounds, Soft, No Tenderness Extremities: No Clubbing, No Cyanosis Skin: No Rashes Results Lab Laboratory Tests 06/07/23 05:15 A/P-Cardiology Admission Diagnosis Pneumonia COVID Bradycardia BERTA Assessment/Plan Pneumonia, COVID +, in isolation. Management per medical services Hypotension, reporting history of hypotension. Continue supportive care. Bradycardia, asymptomatic mainly while asleep. 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 Currently on IV steroids. Will continue to monitor on telemetry BERTA, maintained on CPAP Seizure disorder, maintained on HILARY Soriano MD Jun 07, 2023 12:18
[2023-06-07] MEDS: RT-ALBUTEROL HFA 8.5 GM INHALER IH SCH ×2 (12:19→21:13)
[2023-06-07] MEDS: cefTRIAXone IV/IM 1,000 MG in NS (IVPB) 50 ML 50 ML IV SCH (15:16)
[2023-06-07 15:38] VITALS: BP 122/60
[2023-06-07] MEDS: ENOXAPARIN 40 MG/0.4 ML SYRINGE SC SCH (17:59)
[2023-06-07] MEDS: MELATONIN 3 MG TABLET PO PRN (19:53)
[2023-06-07 20:40] VITALS: BP 137/67
[2023-06-07 23:12] VITALS: BP 109/63
[2023-06-08] VITALS (7 sets, daily range): BP systolic 100–142; BP diastolic 57–77
[2023-06-08] MEDS: LEVOTHYROXINE 50 MCG TABLET PO SCH (06:01)
[2023-06-08] MEDS: THERAPEUTIC MULTIVITAMIN W/MINERALS TABLET PO SCH (06:01)
[2023-06-08 06:11] LABS: HEMATOCRIT 31 % (40-54); MEAN PLATELET VOLUME 11.6 fL (9.0-12.2)
[2023-06-08 06:13] LABS: BASOPHILS % (AUTO) 0 % (0-10); EOSINOPHILS % (AUTO) 0 % (0-10); HEMOGLOBIN 10.5 g/dL (13.3-17.7); LYMPHOCYTES # (AUTO) 0.6 10^3/uL (1.0-4.0); LYMPHOCYTES % (AUTO) 10 % (12-44); MEAN CORPUSCULAR HEMOGLOBIN 32 pg (25-34); MEAN CORPUSCULAR HGB CONC 34 g/dL (32-36); MEAN CORPUSCULAR VOLUME 94 fL (80-99); MONOCYTES # (AUTO) 0.5 10^3/uL (0.0-1.0); MONOCYTES % (AUTO) 8 % (0-12); NEUTROPHILS # (AUTO) 4.8 10^3/uL (1.8-7.8); NEUTROPHILS % (AUTO) 81 % (42-75); PLATELET COUNT 140 10^3/uL (130-400); WHITE BLOOD COUNT 5.9 10^3/uL (4.3-11.0)
[2023-06-08 06:21] LABS: ALBUMIN 3.2 GM/DL (3.2-4.5)
[2023-06-08 06:22] LABS: CALCIUM 8.3 MG/DL (8.5-10.1)
[2023-06-08 06:23] LABS: TOTAL PROTEIN 6.1 GM/DL (6.4-8.2)
[2023-06-08 06:25] LABS: BILIRUBIN,TOTAL 0.4 MG/DL (0.1-1.0)
[2023-06-08 06:27] LABS: CREATININE SERUM 0.73 MG/DL (0.60-1.30)
[2023-06-08] MEDS: RT-ALBUTEROL HFA 8.5 GM INHALER IH SCH (09:00)
[2023-06-08] MEDS: AZITHROMYCIN 250 MG TABLET PO SCH (09:05)
[2023-06-08] MEDS: guaiFENesin 600 MG TABLET PO SCH ×2 (09:06→19:30)
[2023-06-08] MEDS: SENNOSIDES 8.6 MG TABLET PO SCH ×2 (09:06→19:30)
[2023-06-08] MEDS: MIDODRINE 10 MG TABLET PO SCH (09:06)
[2023-06-08] MEDS: FINASTERIDE 5 MG TABLET PO SCH (09:06)
[2023-06-08] MEDS: dexAMETHasone INJ 10 MG/ML 1 ML VIAL IV SCH (09:06)
[2023-06-08] MEDS: DOCUSATE SODIUM 100 MG CAPSULE PO SCH ×2 (09:06→19:30)
--- NOTE | 2023-06-08 11:40 | Progress Note ---
Subjective Date Seen by a Provider: Jun 08, 2023 Time Seen by a Provider: 12:00 Subjective/Events-last exam Doing better May need skilled care No falls Improved transfers and friend at bedside Objective Exam Last Set of Vital Signs Vital Signs Date Time Temp Pulse Resp B/P (MAP) Pulse Ox O2 Delivery O2 Flow Rate FiO2 06/08/23 11:37 36.7 54 20 100/63 (75) 92 Room Air 06/07/23 03:05 06/05/23 22:00 45 Capillary Refill : I&O Intake and Output 06/07/23 23:59 Intake Total 1470 ml Output Total 2100 ml Balance -630 ml Intake Oral 1420 ml IV Total 50 ml Output Urine Total 2100 ml # Voids 1 # Bowel Movements 1 General: Alert, Oriented X3, Cooperative, No Acute Distress Lungs: Clear to Auscultation, Normal Air Movement Heart: Regular Rate, Normal S1, Normal S2, No Murmurs Psych/Mental Status: Mental Status NL, Mood NL Results Lab Laboratory Tests 06/08/23 05:20: White Blood Count 5.9, Red Blood Count 3.31L, Hemoglobin 10.5L, Hematocrit 31L, Mean Corpuscular Volume 94, Mean Corpuscular Hemoglobin 32, Mean Corpuscular Hemoglobin Concent 34, Red Cell Distribution Width 13.1, Platelet Count 140, Mean Platelet Volume 11.6, Immature Granulocyte % (Auto) 1, Neutrophils (%) (Auto) 81H, Lymphocytes (%) (Auto) 10L, Monocytes (%) (Auto) 8, Eosinophils (%) (Auto) 0, Basophils (%) (Auto) 0, Neutrophils # (Auto) 4.8, Lymphocytes # (Auto) 0.6L, Monocytes # (Auto) 0.5, Eosinophils # (Auto) 0.0, Basophils # (Auto) 0.0, Immature Granulocyte # (Auto) 0.1, Percent Immature Platelet Fraction 6.2, Sodium Level 138, Potassium Level 4.0, Chloride Level 105, Carbon Dioxide Level 29, Anion Gap 4L, Blood Urea Nitrogen 18, Creatinine 0.73, Estimat Glomerular Filtration Rate 93, BUN/Creatinine Ratio 25, Glucose Level 85, Calcium Level 8.3L, Corrected Calcium 8.9, Total Bilirubin 0.4, Aspartate Amino Transf (AST/SGOT) 32, Alanine Aminotransferase (ALT/SGPT) 30, Alkaline Phosphatase 30L, Total Protein 6.1L, Albumin 3.2 Microbiology 06/04/23 Urine Culture - Final, Complete See Comments 06/04/23 Blood Culture - Preliminary, Resulted Assessment/Plan Assessment/Plan Assess & Plan/Chief Complaint Assessment: COVID Weakness Frail status Falls Plan: Continue therapy Discharge home on Saturday with home health or may need skilled Clinical Quality Measures Admission Status Admission Dx Assessment: Pneumonia Acute hypoxic respiratory failure COVID Hypotension BERTA on CPAP Confusion Falls Frail status Advanced age Plan: Antibiotics Cardiac stepdown unit Supportive care Monitor closely BRIDGETT TOBAR DO Jun 08, 2023 11:40
--- NOTE | 2023-06-08 11:53 | Physical Therapy Daily Note ---
PT Daily Note-Current Subjective Patient sitting in chair upon PT arrival, agreeable to treatment. Pain Section J - Health Conditions 1. Rarely or not at all 2. Occasionally 3. Frequently 4. Almost constantly 8. Unable to answer Pain Effect on Sleep: 1 Pain Interference with Therapy: 1 Pain Interference w/Day-to-Day: 1 Transfers SCALE: Activities may be completed with or without assistive devices. 9-Tttzszojbd-kuyduef completes the activity by him/herself with no assistance from a helper. 5-Set-up or Clean-up Assistance-helper sets up or cleans up; patient completes activity. [place] assists only prior to or following the activity. 4-Supervision or Touching Assistance-helper provides verbal cues and/or touching/steadying and/or contact guard assistance as patient completes activity. Assistance may be provided throughout the activity or intermittently. 3-Partial/Moderate Assistance-helper does LESS THAN HALF the effort. [place] lifts, holds or supports trunk or limbs, but provides less than half the effort. 2-Substantial/Maximal Assistance-helper does MORE THAN HALF the effort. [place] lifts or holds trunk or limbs and provides more than half the effort. 2-Roggbjzmi-zycxpb does ALL the effort. Patient does none of the effort to complete the activity. Or, the assistance of 2 or more helpers is required for the patient to complete the activity. If activity was not attempted, code reason: 7-Patient Refused. 9-Not Applicable-not attempted and the patient did not perform the activity before the current illness, exacerbation or injury. 10-Not Attempted due to Environmental Limitations-(lack of equipment, weather restraints, etc.). 88-Not Attempted due to Medical Conditions or Safety Concerns. Sit to Stand (QC): 3 Chair/Jeo-rj-Qefrb Xfer(QC): 3 Weight Bearing Right Lower Extremity: Right Full Weight Bearing Left Lower Extremity: Left Full Weight Bearing Patient uses AFO in both shoes Gait Training Does the Patient Walk?: Yes Distance: 90' Walk 10 feet (QC): 4 Walk 50 ft with 2 Turns(QC): 4 Gait Assistive Device: FWW Assessment Current Status: Fair Progress Patient performs all transfers with min a. Patient ambulates 90 feet in room with FWW, with CGA and verbal cues for safety, progression, posture. patient in chair post treatment with all needs met, nursing notified, call light in reach and chair alarm activated. PT Assisted Goals Assisted Goals PT Assisted Goals Time Frame: Jul 20, 2023 Roll Left & Right (QC): 6 Sit to Lying (QC): 6 Lying-Sitting on Side/Bed(QC): 6 Sit to Stand (QC): 6 Chair/Lzf-gq-Oxrhp Xfer(QC): 6 Toilet Transfer (QC): 6 Does the Patient Walk: Yes Walk 10 feet (QC): 4 Walk 50ft with 2 Turns (QC): 4 Walk 150 ft (QC): 4 1 Step (curb) (QC): 3 4 Steps (QC): 3 12 Steps (QC): 3 PT Plan Treatment/Plan Treatment Plan: Continue Plan of Care Treatment Plan: Bed Mobility, Education, Functional Activity Emperatriz, Functional Strength, Group Therapy, Gait, Safety, Therapeutic Exercise, Transfers Treatment Duration: Jul 20, 2023 Frequency: 6 times per week Estimated Hrs Per Day: .25 hour per day Safety Risks/Education Patient Education: Gait Training, Transfer Techniques Teaching Recipient: Patient Teaching Methods: Demonstration, Discussion Response to Teaching: Reinforcement Needed Time Time In: 1138 Time Out: 1148 DATE: Jun 08, 2023 Total Billed Treatment Time: 10 Total Billed Treatment Visit, GT LETI ESCOTO PT Jun 08, 2023 11:53
[2023-06-08] MEDS: ASPIRIN enteric coated 81MG TABLET PO SCH (12:03)
--- NOTE | 2023-06-08 12:34 | Cardiology Progress Note ---
Subjective Date Seen by Provider: Jun 08, 2023 Time Seen by Provider: 12:29 Subjective/Events-last exam Denies any complaints. Sitting in the chair, answering questions appropriately. Hemodynamically stable. Remains in sinus bradycardia at 54 without lightheadedness or dizziness Review of Systems General: No Chills, No Night Sweats, No Fatigue, No Malaise, No Appetite, No Other HEENT: No Head Aches, No Visual Changes, No Eye Pain, No Ear Pain, No Dysphasia, No Sinus Congestion, No Post Nasal Drip, No Sore Throat, No Other Pulmonary: No Dyspnea, No Cough, No Pleuritic Chest Pain, No Other Cardiovascular: No: Chest Pain, Palpitations, Orthopnea, Paroxysmal Noc. Dyspnea, Edema, Lt Headedness, Other Gastrointestinal: No: Nausea, Vomiting, Abdominal Pain, Diarrhea, Constipation, Melena, Hematochezia, Other Genitourinary: No Dysuria, No Frequency, No Incontinence, No Hematuria, No Retention, No Other Musculoskeletal: No: other, neck pain, shoulder pain, arm pain, back pain, hand pain, leg pain, foot pain Neurological: No: Weakness, Numbness, Incoordination, Change in speech, Confusion, Seizures, Other Exam Vital Signs Vital Signs Date Time Temp Pulse Resp B/P (MAP) Pulse Ox O2 Delivery O2 Flow Rate FiO2 06/08/23 11:37 36.7 54 20 100/63 (75) 92 Room Air 06/07/23 03:05 06/05/23 22:00 45 Physical Exam Alert oriented, no distress. Neck supple, no JVD. Lungsdecreased breath sounds bilaterally. S1-S2, regular rate, no murmurs. Abdomen soft, nontender. Extremities no edema Labs Laboratory Tests Test 06/08/23 05:20 Range/Units White Blood Count 5.9 4.3-11.0 10^3/uL Red Blood Count 3.31 L 4.30-5.52 10^6/uL Hemoglobin 10.5 L 13.3-17.7 g/dL Hematocrit 31 L 40-54 % Mean Corpuscular Volume 94 80-99 fL Mean Corpuscular Hemoglobin 32 25-34 pg Mean Corpuscular Hemoglobin Concent 34 32-36 g/dL Red Cell Distribution Width 13.1 10.0-14.5 % Platelet Count 140 130-400 10^3/uL Mean Platelet Volume 11.6 9.0-12.2 fL Immature Granulocyte % (Auto) 1 % Neutrophils (%) (Auto) 81 H 42-75 % Lymphocytes (%) (Auto) 10 L 12-44 % Monocytes (%) (Auto) 8 0-12 % Eosinophils (%) (Auto) 0 0-10 % Basophils (%) (Auto) 0 0-10 % Neutrophils # (Auto) 4.8 1.8-7.8 10^3/uL Lymphocytes # (Auto) 0.6 L 1.0-4.0 10^3/uL Monocytes # (Auto) 0.5 0.0-1.0 10^3/uL Eosinophils # (Auto) 0.0 0.0-0.3 10^3/uL Basophils # (Auto) 0.0 0.0-0.1 10^3/uL Immature Granulocyte # (Auto) 0.1 0.0-0.1 10^3/uL Percent Immature Platelet Fraction 6.2 0.0-7.6 % Sodium Level 138 135-145 MMOL/L Potassium Level 4.0 3.6-5.0 MMOL/L Chloride Level 105 98-107 MMOL/L Carbon Dioxide Level 29 21-32 MMOL/L Anion Gap 4 L 5-14 MMOL/L Blood Urea Nitrogen 18 7-18 MG/DL Creatinine 0.73 0.60-1.30 MG/DL Estimat Glomerular Filtration Rate 93 BUN/Creatinine Ratio 25 Glucose Level 85 70-105 MG/DL Calcium Level 8.3 L 8.5-10.1 MG/DL Corrected Calcium 8.9 8.5-10.1 MG/DL Total Bilirubin 0.4 0.1-1.0 MG/DL Aspartate Amino Transf (AST/SGOT) 32 5-34 U/L Alanine Aminotransferase (ALT/SGPT) 30 0-55 U/L Alkaline Phosphatase 30 L 40-136 U/L Total Protein 6.1 L 6.4-8.2 GM/DL Albumin 3.2 3.2-4.5 GM/DL A/P-Cardiology Admission Diagnosis Pneumonia: Continue treatment as per medical service. COVID: Continue treatment as per medical service Bradycardia: Stable. Continue present medications BERTA: Continue treatment as per medical service Assessment/Plan Pneumonia, COVID +, in isolation. Management per medical services Hypotension, reporting history of hypotension. Continue supportive care. Bradycardia, asymptomatic mainly while asleep. 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 Currently on IV steroids. Will continue to monitor on telemetry BERTA, maintained on CPAP Seizure disorder, maintained on ÓSCAR Huang MD Jun 08, 2023 12:34
[2023-06-08] MEDS: cefTRIAXone IV/IM 1,000 MG in NS (IVPB) 50 ML 50 ML IV SCH (15:16)
[2023-06-08] MEDS: ENOXAPARIN 40 MG/0.4 ML SYRINGE SC SCH (17:17)
[2023-06-08] MEDS ORDERED: RT-ALBUTEROL HFA 8.5 GM INHALER IH PRN (18:45)
[2023-06-08] MEDS: MELATONIN 3 MG TABLET PO PRN (19:30)
[2023-06-09 03:02] VITALS: BP 145/76
[2023-06-09 05:35] LABS: BASOPHILS % (AUTO) 0 % (0-10); EOSINOPHILS % (AUTO) 0 % (0-10); HEMATOCRIT 33 % (40-54); HEMOGLOBIN 10.9 g/dL (13.3-17.7); LYMPHOCYTES # (AUTO) 0.8 10^3/uL (1.0-4.0); LYMPHOCYTES % (AUTO) 12 % (12-44); MEAN CORPUSCULAR HEMOGLOBIN 31 pg (25-34); MEAN CORPUSCULAR HGB CONC 33 g/dL (32-36); MEAN CORPUSCULAR VOLUME 93 fL (80-99); MEAN PLATELET VOLUME 11.3 fL (9.0-12.2); MONOCYTES # (AUTO) 0.7 10^3/uL (0.0-1.0); MONOCYTES % (AUTO) 10 % (0-12); NEUTROPHILS # (AUTO) 5.2 10^3/uL (1.8-7.8); NEUTROPHILS % (AUTO) 76 % (42-75); PLATELET COUNT 162 10^3/uL (130-400); WHITE BLOOD COUNT 6.9 10^3/uL (4.3-11.0)
[2023-06-09 05:56] LABS: ALBUMIN 3.2 GM/DL (3.2-4.5)
[2023-06-09 05:57] LABS: CALCIUM 8.3 MG/DL (8.5-10.1)
[2023-06-09 05:58] LABS: TOTAL PROTEIN 6.1 GM/DL (6.4-8.2)
[2023-06-09 06:00] LABS: BILIRUBIN,TOTAL 0.4 MG/DL (0.1-1.0)
[2023-06-09 06:02] LABS: CREATININE SERUM 0.73 MG/DL (0.60-1.30)
[2023-06-09] MEDS: LEVOTHYROXINE 50 MCG TABLET PO SCH (06:18)
[2023-06-09] MEDS: THERAPEUTIC MULTIVITAMIN W/MINERALS TABLET PO SCH (06:18)
[2023-06-09 07:33] VITALS: BP 141/72
[2023-06-09] MEDS: MIDODRINE 10 MG TABLET PO SCH (08:44)
[2023-06-09] MEDS: DOCUSATE SODIUM 100 MG CAPSULE PO SCH ×2 (08:44→19:27)
[2023-06-09] MEDS: FINASTERIDE 5 MG TABLET PO SCH (08:44)
[2023-06-09] MEDS: SENNOSIDES 8.6 MG TABLET PO SCH ×2 (08:44→19:27)
[2023-06-09] MEDS: guaiFENesin 600 MG TABLET PO SCH ×2 (08:44→21:36)
[2023-06-09] MEDS: dexAMETHasone INJ 10 MG/ML 1 ML VIAL IV SCH (08:45)
[2023-06-09 11:01] VITALS: BP 102/65
--- NOTE | 2023-06-09 13:27 | Progress Note ---
Subjective Date Seen by a Provider: Jun 09, 2023 Time Seen by a Provider: 09:00 Subjective/Events-last exam Patient doing much better Still pretty weak Needs skilled care No falls Reviewed meds and labs Objective Exam Last Set of Vital Signs Vital Signs Date Time Temp Pulse Resp B/P (MAP) Pulse Ox O2 Delivery O2 Flow Rate FiO2 06/09/23 11:01 36.8 74 18 102/65 (77) 91 Room Air 06/07/23 03:05 06/05/23 22:00 45 Capillary Refill : I&O Intake and Output 06/08/23 23:59 Intake Total 1307 ml Output Total 2375 ml Balance -1068 ml Intake Oral 1307 ml Output Urine Total 2375 ml # Voids 2 General: Alert, Oriented X3, Cooperative, No Acute Distress Lungs: Clear to Auscultation, Normal Air Movement Heart: Regular Rate, Normal S1, Normal S2, No Murmurs Psych/Mental Status: Mental Status NL, Mood NL Results Lab Laboratory Tests 06/09/23 05:15: White Blood Count 6.9, Red Blood Count 3.51L, Hemoglobin 10.9L, Hematocrit 33L, Mean Corpuscular Volume 93, Mean Corpuscular Hemoglobin 31, Mean Corpuscular Hemoglobin Concent 33, Red Cell Distribution Width 13.1, Platelet Count 162, Mean Platelet Volume 11.3, Immature Granulocyte % (Auto) 2, Neutrophils (%) (Auto) 76H, Lymphocytes (%) (Auto) 12, Monocytes (%) (Auto) 10, Eosinophils (%) (Auto) 0, Basophils (%) (Auto) 0, Neutrophils # (Auto) 5.2, Lymphocytes # (Auto) 0.8L, Monocytes # (Auto) 0.7, Eosinophils # (Auto) 0.0, Basophils # (Auto) 0.0, Immature Granulocyte # (Auto) 0.1, Sodium Level 138, Potassium Level 4.0, Chloride Level 105, Carbon Dioxide Level 27, Anion Gap 6, Blood Urea Nitrogen 20H, Creatinine 0.73, Estimat Glomerular Filtration Rate 92, BUN/Creatinine Ratio 27, Glucose Level 89, Calcium Level 8.3L, Corrected Calcium 8.9, Total Bilirubin 0.4, Aspartate Amino Transf (AST/SGOT) 29, Alanine Aminotransferase (ALT/SGPT) 29, Alkaline Phosphatase 31L, Total Protein 6.1L, Albumin 3.2 Microbiology 06/04/23 Urine Culture - Final, Complete See Comments 06/04/23 Blood Culture - Preliminary, Resulted Assessment/Plan Assessment/Plan Assess & Plan/Chief Complaint Assessment: COVID Weakness Frail status Falls Plan: Continue therapy Needs skilled care Clinical Quality Measures Admission Status Admission Dx Assessment: Pneumonia Acute hypoxic respiratory failure COVID Hypotension BERTA on CPAP Confusion Falls Frail status Advanced age Plan: Antibiotics Cardiac stepdown unit Supportive care Monitor closely BRIDGETT TOBAR DO Jun 09, 2023 13:26
[2023-06-09] MEDS: cefTRIAXone IV/IM 1,000 MG in NS (IVPB) 50 ML 50 ML IV SCH (14:47)
[2023-06-09 16:50] VITALS: BP 114/65
[2023-06-09] MEDS: ENOXAPARIN 40 MG/0.4 ML SYRINGE SC SCH (17:03)
[2023-06-09 19:17] VITALS: BP 115/61
[2023-06-10 00:46] VITALS: BP 118/61
[2023-06-10 04:59] VITALS: BP 129/65
--- NOTE | 2023-06-10 05:23 | Progress Note ---
Subjective Date Seen by a Provider: Jun 10, 2023 Time Seen by a Provider: 09:00 Objective Exam Last Set of Vital Signs Vital Signs Date Time Temp Pulse Resp B/P (MAP) Pulse Ox O2 Delivery O2 Flow Rate FiO2 06/10/23 04:59 37.0 48 18 129/65 (86) 95 Room Air 06/07/23 03:05 06/05/23 22:00 45 Capillary Refill : I&O Intake and Output 06/10/23 00:00 Intake Total 1520 ml Output Total 3001 ml Balance -1481 ml Intake Oral 1470 ml IV Total 50 ml Output Urine Total 3000 ml Stool Total 1 ml Results Lab Microbiology 06/04/23 Urine Culture - Final, Complete See Comments 06/04/23 Blood Culture - Final, Complete Assessment/Plan Assessment/Plan Assess & Plan/Chief Complaint Assessment: COVID Weakness Frail status Falls Plan: Continue therapy Needs skilled care Clinical Quality Measures Admission Status Admission Dx Assessment: Pneumonia Acute hypoxic respiratory failure COVID Hypotension BERTA on CPAP Confusion Falls Frail status Advanced age Plan: Antibiotics Cardiac stepdown unit Supportive care Monitor closely BRIDGETT TOBAR DO Jun 10, 2023 05:23
[2023-06-10] MEDS: LEVOTHYROXINE 50 MCG TABLET PO SCH (06:03)
[2023-06-10] MEDS: THERAPEUTIC MULTIVITAMIN W/MINERALS TABLET PO SCH (06:03)
[2023-06-10 06:07] LABS: BASOPHILS % (AUTO) 0 % (0-10); EOSINOPHILS # (AUTO) 0.1 10^3/uL (0.0-0.3); EOSINOPHILS % (AUTO) 1 % (0-10); HEMATOCRIT 34 % (40-54); HEMOGLOBIN 11.6 g/dL (13.3-17.7); LYMPHOCYTES # (AUTO) 1.2 10^3/uL (1.0-4.0); LYMPHOCYTES % (AUTO) 15 % (12-44); MEAN CORPUSCULAR HEMOGLOBIN 31 pg (25-34); MEAN CORPUSCULAR HGB CONC 34 g/dL (32-36); MEAN CORPUSCULAR VOLUME 93 fL (80-99); MEAN PLATELET VOLUME 11.2 fL (9.0-12.2); MONOCYTES # (AUTO) 0.9 10^3/uL (0.0-1.0); MONOCYTES % (AUTO) 10 % (0-12); NEUTROPHILS # (AUTO) 5.7 10^3/uL (1.8-7.8); NEUTROPHILS % (AUTO) 70 % (42-75); PLATELET COUNT 222 10^3/uL (130-400); WHITE BLOOD COUNT 8.2 10^3/uL (4.3-11.0)
[2023-06-10 06:13] LABS: ALBUMIN 3.1 GM/DL (3.2-4.5); POTASSIUM 4.2 MMOL/L (3.6-5.0)
[2023-06-10 06:15] LABS: CALCIUM 8.4 MG/DL (8.5-10.1)
[2023-06-10 06:16] LABS: TOTAL PROTEIN 6.2 GM/DL (6.4-8.2)
[2023-06-10 06:18] LABS: BILIRUBIN,TOTAL 0.3 MG/DL (0.1-1.0)
[2023-06-10 06:19] LABS: CREATININE SERUM 0.76 MG/DL (0.60-1.30)
[2023-06-10 08:17] VITALS: BP 132/67
--- NOTE | 2023-06-10 09:22 | Discharge Summary ---
Diagnosis/Chief Complaint Date of Admission Jun 04, 2023 at 17:09 Date of Discharge Discharge Date: Jun 10, 2023 Discharge Diagnosis COVID Weakness Frail status Advanced age Reason Hospital Visit Chief complaint: Weakness with multiple falls with COVID HPI: This is a 77-year-old male with a past medical history of BERTA on CPAP who presented to the ER with weakness and multiple falls found to have COVID. He was noted he had bradycardia through the night down to the 30s so we will consult cardiology and obtain echocardiogram. Currently he is doing much better and not as confused. at the bedside. Discharge Summary Discharge Physical Examination Allergies: Coded Allergies: No Known Drug Allergies (Unverified , 07/13/19) Vitals & I&Os Vital Signs Date Time Temp Pulse Resp B/P (MAP) Pulse Ox O2 Delivery O2 Flow Rate FiO2 06/10/23 09:00 Room Air 06/10/23 08:17 61 18 132/67 (88) 94 06/10/23 04:59 37.0 06/07/23 03:05 06/05/23 22:00 45 General Appearance: Alert, Oriented X3, Cooperative Respiratory: Clear to Auscultation Cardiovascular: Regular Rate Psych/Mental Status: Mental Status NL Hospital Course Was the Problem List Reviewed?: Yes Lengthy course after he was admitted for COVID related weakness and falls. BIPAP was required initially and that was transitioned to NC O2. Overall he remained very weak and worked with therapy and labs and vitals remained stable but the decision to swing bed was made for additional therapy and to complete COVID isolation. Labs (last 24 hrs) Laboratory Tests 06/04/23 13:25: White Blood Count 9.4, Red Blood Count 3.94L, Hemoglobin 12.5L, Hematocrit 36L, Mean Corpuscular Volume 92, Mean Corpuscular Hemoglobin 32, Mean Corpuscular Hemoglobin Concent 34, Red Cell Distribution Width 13.0, Platelet Count 166, Mean Platelet Volume 11.0, Immature Granulocyte % (Auto) 0, Neutrophils (%) (Auto) 85H, Lymphocytes (%) (Auto) 5L, Monocytes (%) (Auto) 10, Eosinophils (%) (Auto) 0, Basophils (%) (Auto) 0, Neutrophils # (Auto) 8.0H, Lymphocytes # (Auto) 0.5L, Monocytes # (Auto) 0.9, Eosinophils # (Auto) 0.0, Basophils # (Auto) 0.0, Immature Granulocyte # (Auto) 0.0, Neutrophils % (Manual) 84, Lymphocytes % (Manual) 6, Monocytes % (Manual) 10, Blood Morphology Comment NORMAL, Prothrombin Time 15.1H, INR Comment 1.1, Activated Partial Thromboplast Time 35, Sodium Level 134L, Potassium Level 3.7, Chloride Level 101, Carbon Dioxide Level 23, Anion Gap 10, Blood Urea Nitrogen 20H, Creatinine 0.91, Estimat Glomerular Filtration Rate 86, BUN/Creatinine Ratio 22, Glucose Level 106H, Lactic Acid Level 0.86, Calcium Level 8.4L, Corrected Calcium 8.4L, Total Bilirubin 0.7, Aspartate Amino Transf (AST/SGOT) 50H, Alanine Aminotransferase (ALT/SGPT) 26, Alkaline Phosphatase 36L, Total Protein 7.3, Albumin 4.0, Influenza Type A (RT-PCR) Not Detected, Influenza Type B (RT-PCR) Not Detected, SARS-CoV-2 RNA (RT-PCR) DetectedH 06/04/23 17:09: Lab Scanned Report Referred Lab Report 06/04/23 19:45: Urine Color YELLOW, Urine Clarity CLEAR, Urine pH 5.0, Urine Specific [place] <=1.005, Urine Protein NEGATIVE, Urine Glucose (UA) NEGATIVE, Urine Ketones 1+H, Urine Nitrite NEGATIVE, Urine Bilirubin NEGATIVE, Urine Urobilinogen 0.2, Urine Leukocyte Esterase NEGATIVE, Urine RBC (Auto) TRACEH, Urine RBC NONE, Urine WBC NONE, Urine Squamous Epithelial Cells RARE, Urine Crystals NONE, Urine Bacteria NEGATIVE, Urine Casts NONE, Urine Mucus NEGATIVE, Urine Culture Indicated CUL TURE PENDING 06/05/23 05:15: White Blood Count 8.0, Red Blood Count 3.95L, Hemoglobin 12.3L, Hematocrit 37L, Mean Corpuscular Volume 94, Mean Corpuscular Hemoglobin 31, Mean Corpuscular Hemoglobin Concent 33, Red Cell Distribution Width 13.2, Platelet Count 145, Mean Platelet Volume 11.5, Immature Granulocyte % (Auto) 0, Neutrophils (%) (Auto) 79H, Lymphocytes (%) (Auto) 11L, Monocytes (%) (Auto) 9, Eosinophils (%) (Auto) 0, Basophils (%) (Auto) 0, Neutrophils # (Auto) 6.4, Lymphocytes # (Auto) 0.9L, Monocytes # (Auto) 0.8, Eosinophils # (Auto) 0.0, Basophils # (Auto) 0.0, Immature Granulocyte # (Auto) 0.0, Sodium Level 141, Potassium Level 4.4, Chloride Level 109H, Carbon Dioxide Level 23, Anion Gap 9, Blood Urea Nitrogen 16, Creatinine 0.79, Estimat Glomerular Filtration Rate 90, BUN/Creatinine Ratio 20, Glucose Level 109H, Calcium Level 8.4L, Corrected Calcium 8.7, Total Bilirubin 0.4, Aspartate Amino Transf (AST/SGOT) 40H, Alanine Aminotransferase (ALT/SGPT) 22, Alkaline Phosphatase 34L, Total Protein 6.7, Albumin 3.6 06/06/23 04:26: White Blood Count 8.7, Red Blood Count 3.47L, Hemoglobin 11.0L, Hematocrit 32L, Mean Corpuscular Volume 93, Mean Corpuscular Hemoglobin 32, Mean Corpuscular Hemoglobin Concent 34, Red Cell Distribution Width 13.2, Platelet Count 138, Mean Platelet Volume 11.2, Immature Granulocyte % (Auto) 0, Neutrophils (%) (Auto) 80H, Lymphocytes (%) (Auto) 12, Monocytes (%) (Auto) 9, Eosinophils (%) (Auto) 0, Basophils (%) (Auto) 0, Neutrophils # (Auto) 6.9, Lymphocytes # (Auto) 1.0, Monocytes # (Auto) 0.8, Eosinophils # (Auto) 0.0, Basophils # (Auto) 0.0, Immature Granulocyte # (Auto) 0.0, Percent Immature Platelet Fraction 4.9, Sodium Level 139, Potassium Level 4.5, Chloride Level 107, Carbon Dioxide Level 26, Anion Gap 6, Blood Urea Nitrogen 20H, Creatinine 0.78, Estimat Glomerular Filtration Rate 91, BUN/Creatinine Ratio 26, Glucose Level 115H, Calcium Level 8.2L, Corrected Calcium 8.8, Total Bilirubin 0.4, Aspartate Amino Transf (AST/SGOT) 36H, Alanine Aminotransferase (ALT/SGPT) 23, Alkaline Phosphatase 29L , Total Protein 6.2L, Albumin 3.3 06/07/23 05:15: White Blood Count 7.5, Red Blood Count 3.46L, Hemoglobin 10.9L, Hematocrit 33L, Mean Corpuscular Volume 94, Mean Corpuscular Hemoglobin 32, Mean Corpuscular Hemoglobin Concent 34, Red Cell Distribution Width 13.2, Platelet Count 141, Mean Platelet Volume 11.3, Immature Granulocyte % (Auto) 0, Neutrophils (%) (Auto) 87H, Lymphocytes (%) (Auto) 8L, Monocytes (%) (Auto) 5, Eosinophils (%) (Auto) 0, Basophils (%) (Auto) 0, Neutrophils # (Auto) 6.5, Lymphocytes # (Auto) 0.6L, Monocytes # (Auto) 0.4, Eosinophils # (Auto) 0.0, Basophils # (Auto) 0.0, Immature Granulocyte # (Auto) 0.0, Percent Immature Platelet Fraction 5.4, Sodium Level 141, Potassium Level 4.1, Chloride Level 108H, Carbon Dioxide Level 27, Anion Gap 6, Blood Urea Nitrogen 16, Creatinine 0.75, Estimat Glomerular Filtration Rate 92, BUN/Creatinine Ratio 21, Glucose Level 90, Calcium Level 8.3L, Corrected Calcium 8.9, Total Bilirubin 0.6, Aspartate Amino Transf (AST/SGOT) 34, Alanine Aminotransferase (ALT/SGPT) 26, Alkaline Phosphatase 31L, Total Protein 6.2L, Albumin 3.3 06/08/23 05:20: White Blood Count 5.9, Red Blood Count 3.31L, Hemoglobin 10.5L, Hematocrit 31L, Mean Corpuscular Volume 94, Mean Corpuscular Hemoglobin 32, Mean Corpuscular Hemoglobin Concent 34, Red Cell Distribution Width 13.1, Platelet Count 140, Mean Platelet Volume 11.6, Immature Granulocyte % (Auto) 1, Neutrophils (%) (Auto) 81H, Lymphocytes (%) (Auto) 10L, Monocytes (%) (Auto) 8, Eosinophils (%) (Auto) 0, Basophils (%) (Auto) 0, Neutrophils # (Auto) 4.8, Lymphocytes # (Auto) 0.6L, Monocytes # (Auto) 0.5, Eosinophils # (Auto) 0.0, Basophils # (Auto) 0.0, Immature Granulocyte # (Auto) 0.1, Percent Immature Platelet Fraction 6.2, Sodium Level 138, Potassium Level 4.0, Chloride Level 105, Carbon Dioxide Level 29, Anion Gap 4L, Blood Urea Nitrogen 18, Creatinine 0.73, Estimat Glomerular Filtration Rate 93, BUN/Creatinine Ratio 25, Glucose Level 85, Calcium Level 8.3L, Corrected Calcium 8.9, Total Bilirubin 0.4, Aspartate Amino Transf (AST/SGOT) 32, Alanine Aminotransferase (ALT/SGPT) 30, Alkaline Phosphatase 30L, Total Protein 6.1L, Albumin 3.2 06/09/23 05:15: White Blood Count 6.9, Red Blood Count 3.51L, Hemoglobin 10.9L, Hematocrit 33L, Mean Corpuscular Volume 93, Mean Corpuscular Hemoglobin 31, Mean Corpuscular Hemoglobin Concent 33, Red Cell Distribution Width 13.1, Platelet Count 162, Mean Platelet Volume 11.3, Immature Granulocyte % (Auto) 2, Neutrophils (%) (Auto) 76H, Lymphocytes (%) (Auto) 12, Monocytes (%) (Auto) 10, Eosinophils (%) (Auto) 0, Basophils (%) (Auto) 0, Neutrophils # (Auto) 5.2, Lymphocytes # (Auto) 0.8L, Monocytes # (Auto) 0.7, Eosinophils # (Auto) 0.0, Basophils # (Auto) 0.0, Immature Granulocyte # (Auto) 0.1, Sodium Level 138, Potassium Level 4.0, Chloride Level 105, Carbon Dioxide Level 27, Anion Gap 6, Blood Urea Nitrogen 20H, Creatinine 0.73, Estimat Glomerular Filtration Rate 92, BUN/Creatinine Ratio 27, Glucose Level 89, Calcium Level 8.3L, Corrected Calcium 8.9, Total Bilirubin 0.4, Aspartate Amino Transf (AST/SGOT) 29, Alanine Aminotransferase (ALT/SGPT) 29, Alkaline Phosphatase 31L, Total Protein 6.1L, Albumin 3.2 06/10/23 05:50: White Blood Count 8.2, Red Blood Count 3.69L, Hemoglobin 11.6L, Hematocrit 34L, Mean Corpuscular Volume 93, Mean Corpuscular Hemoglobin 31, Mean Corpuscular Hemoglobin Concent 34, Red Cell Distribution Width 13.0, Platelet Count 222, Mean Platelet Volume 11.2, Immature Granulocyte % (Auto) 4, Neutrophils (%) (Auto) 70, Lymphocytes (%) (Auto) 15, Monocytes (%) (Auto) 10, Eosinophils (%) (Auto) 1, Basophils (%) (Auto) 0, Neutrophils # (Auto) 5.7, Lymphocytes # (Auto) 1.2, Monocytes # (Auto) 0.9, Eosinophils # (Auto) 0.1, Basophils # (Auto) 0.0, Immature Granulocyte # (Auto) 0.3H, Sodium Level 138, Potassium Level 4.2, Chloride Level 103, Carbon Dioxide Level 27, Anion Gap 8, Blood Urea Nitrogen 23H, Creatinine 0.76, Estimat Glomerular Filtration Rate 91, BUN/Creatinine Ratio 30, Glucose Level 88, Calcium Level 8.4L, Corrected Calcium 9.1, Total Bilirubin 0.3, Aspartate Amino Transf (AST/SGOT) 27, Alanine Aminotransferase (ALT/SGPT) 29, Alkaline Phosphatase 32L, Total Protein 6.2L, Albumin 3.1L Microbiology 06/04/23 Urine Culture - Final, Complete See Comments 06/04/23 Blood Culture - Final, Complete Pending Labs Microbiology Date/Time Source Procedure Growth Status 06/04/23 19:45 Urine Clean Catch Urine Culture - Final See Comments Complete 06/04/23 14:09 Peripheral Rt Hand Blood Culture - Final Complete 06/04/23 13:25 Peripheral Left Forearm Blood Culture - Final Complete Laboratory Tests 06/04/23 13:25: White Blood Count 9.4, Red Blood Count 3.94, Hemoglobin 12.5, Hematocrit 36, Mean Corpuscular Volume 92, Mean Corpuscular Hemoglobin 32, Mean Corpuscular Hemoglobin Concent 34, Red Cell Distribution Width 13.0, Platelet Count 166, Mean Platelet Volume 11.0, Immature Granulocyte % (Auto) 0, Neutrophils (%) (Auto) 85, Lymphocytes (%) (Auto) 5, Monocytes (%) (Auto) 10, Eosinophils (%) (Auto) 0, Basophils (%) (Auto) 0, Neutrophils # (Auto) 8.0, Lymphocytes # (Auto) 0.5, Monocytes # (Auto) 0.9, Eosinophils # (Auto) 0.0, Basophils # (Auto) 0.0, Immature Granulocyte # (Auto) 0.0, Neutrophils % (Manual) 84, Lymphocytes % (Manual) 6, Monocytes % (Manual) 10, Blood Morphology Comment NORMAL, Prothrombin Time 15.1, INR Comment 1.1, Activated Partial Thromboplast Time 35, Sodium Level 134, Potassium Level 3.7, Chloride Level 101, Carbon Dioxide Level 23, Anion Gap 10, Blood Urea Nitrogen 20, Creatinine 0.91, Estimat Glomerular Filtration Rate 86, BUN/Creatinine Ratio 22, Glucose Level 106, Lactic Acid Level 0.86, Calcium Level 8.4, Corrected Calcium 8.4, Total Bilirubin 0.7, Aspartate Amino Transf (AST/SGOT) 50, Alanine Aminotransferase (ALT/SGPT) 26, Alkaline Phosphatase 36, Total Protein 7.3, Albumin 4.0, Influenza Type A (RT- PCR) Not Detected, Influenza Type B (RT-PCR) Not Detected, SARS-CoV-2 RNA (RT- PCR) Detected 06/04/23 17:09: Lab Scanned Report Referred Lab Report 06/04/23 19:45: Urine Color YELLOW, Urine Clarity CLEAR, Urine pH 5.0, Urine Specific [place] <=1.005, Urine Protein NEGATIVE, Urine Glucose (UA) NEGATIVE, Urine Ketones 1+, Urine Nitrite NEGATIVE, Urine Bilirubin NEGATIVE, Urine Urobilinogen 0.2, Urine Leukocyte Esterase NEGATIVE, Urine RBC (Auto) TRACE, Urine RBC NONE, Urine WBC NONE, Urine Squamous Epithelial Cells RARE, Urine Crystals NONE, Urine Bacteria NEGATIVE, Urine Casts NONE, Urine Mucus NEGATIVE, Urine Culture Indicated CULTURE PENDING 06/05/23 05:15: White Blood Count 8.0, Red Blood Count 3.95, Hemoglobin 12.3, Hematocrit 37, Mean Corpuscular Volume 94, Mean Corpuscular Hemoglobin 31, Mean Corpuscular Hemoglobin Concent 33, Red Cell Distribution Width 13.2, Platelet Count 145, Mean Platelet Volume 11.5, Immature Granulocyte % (Auto) 0, Neutrophils (%) (Auto) 79, Lymphocytes (%) (Auto) 11, Monocytes (%) (Auto) 9, Eosinophils (%) (Auto) 0, Basophils (%) (Auto) 0, Neutrophils # (Auto) 6.4, Lymphocytes # (Auto) 0.9, Monocytes # (Auto) 0.8, Eosinophils # (Auto) 0.0, Basophils # (Auto) 0.0, Immature Granulocyte # (Auto) 0.0, Sodium Level 141, Potassium Level 4.4, Chloride Level 109, Carbon Dioxide Level 23, Anion Gap 9, Blood Urea Nitrogen 16, Creatinine 0.79, Estimat Glomerular Filtration Rate 90, BUN/Creatinine Ratio 20, Glucose Level 109, Calcium Level 8.4, Corrected Calcium 8.7, Total Bilirubin 0.4, Aspartate Amino Transf (AST/SGOT) 40, Alanine Aminotransferase (ALT/SGPT) 22, Alkaline Phosphatase 34, Total Protein 6.7, Albumin 3.6 06/06/23 04:26: White Blood Count 8.7, Red Blood Count 3.47, Hemoglobin 11.0, Hematocrit 32, Mean Corpuscular Volume 93, Mean Corpuscular Hemoglobin 32, Mean Corpuscular Hemoglobin Concent 34, Red Cell Distribution Width 13.2, Platelet Count 138, Mean Platelet Volume 11.2, Immature Granulocyte % (Auto) 0, Neutrophils (%) (Auto) 80, Lymphocytes (%) (Auto) 12, Monocytes (%) (Auto) 9, Eosinophils (%) (Auto) 0, Basophils (%) (Auto) 0, Neutrophils # (Auto) 6.9, Lymphocytes # (Auto) 1.0, Monocytes # (Auto) 0.8, Eosinophils # (Auto) 0.0, Basophils # (Auto) 0.0, Immature Granulocyte # (Auto) 0.0, Percent Immature Platelet Fraction 4.9, Sodium Level 139, Potassium Level 4.5, Chloride Level 107, Carbon Dioxide Level 26, Anion Gap 6, Blood Urea Nitrogen 20, Creatinine 0.78, Estimat Glomerular Filtration Rate 91, BUN/Creatinine Ratio 26, Glucose Level 115, Calcium Level 8.2, Corrected Calcium 8.8, Total Bilirubin 0.4, Aspartate Amino Transf (AST/SGOT) 36, Alanine Aminotransferase (ALT/SGPT) 23, Alkaline Phosphatase 29, Total Protein 6.2, Albumin 3.3 06/07/23 05:15: White Blood Count 7.5, Red Blood Count 3.46, Hemoglobin 10.9, Hematocrit 33, Mean Corpuscular Volume 94, Mean Corpuscular Hemoglobin 32, Mean Corpuscular Hemoglobin Concent 34, Red Cell Distribution Width 13.2, Platelet Count 141, Mean Platelet Volume 11.3, Immature Granulocyte % (Auto) 0, Neutrophils (%) (Auto) 87, Lymphocytes (%) (Auto) 8, Monocytes (%) (Auto) 5, Eosinophils (%) (Auto) 0, Basophils (%) (Auto) 0, Neutrophils # (Auto) 6.5, Lymphocytes # (Auto) 0.6, Monocytes # (Auto) 0.4, Eosinophils # (Auto) 0.0, Basophils # (Auto) 0.0, Immature Granulocyte # (Auto) 0.0, Percent Immature Platelet Fraction 5.4, Sodium Level 141, Potassium Level 4.1, Chloride Level 108, Carbon Dioxide Level 27, Anion Gap 6, Blood Urea Nitrogen 16, Creatinine 0.75, Estimat Glomerular Filtration Rate 92, BUN/Creatinine Ratio 21, Glucose Level 90, Calcium Level 8.3, Corrected Calcium 8.9, Total Bilirubin 0.6, Aspartate Amino Transf (AST/SGOT) 34, Alanine Aminotransferase (ALT/SGPT) 26, Alkaline Phosphatase 31, Total Protein 6.2, Albumin 3.3 06/08/23 05:20: White Blood Count 5.9, Red Blood Count 3.31, Hemoglobin 10.5, Hematocrit 31, Mean Corpuscular Volume 94, Mean Corpuscular Hemoglobin 32, Mean Corpuscular Hemoglobin Concent 34, Red Cell Distribution Width 13.1, Platelet Count 140, Mean Platelet Volume 11.6, Immature Granulocyte % (Auto) 1, Neutrophils (%) (Auto) 81, Lymphocytes (%) (Auto) 10, Monocytes (%) (Auto) 8, Eosinophils (%) (Auto) 0, Basophils (%) (Auto) 0, Neutrophils # (Auto) 4.8, Lymphocytes # (Auto) 0.6, Monocytes # (Auto) 0.5, Eosinophils # (Auto) 0.0, Basophils # (Auto) 0.0, Immature Granulocyte # (Auto) 0.1, Percent Immature Platelet Fraction 6.2, Sodium Level 138, Potassium Level 4.0, Chloride Level 105, Carbon Dioxide Level 29, Anion Gap 4, Blood Urea Nitrogen 18, Creatinine 0.73, Estimat Glomerular Filtration Rate 93, BUN/Creatinine Ratio 25, Glucose Level 85, Calcium Level 8.3, Corrected Calcium 8.9, Total Bilirubin 0.4, Aspartate Amino Transf (AST/SGOT) 32, Alanine Aminotransferase (ALT/SGPT) 30, Alkaline Phosphatase 30, Total Protein 6.1, Albumin 3.2 06/09/23 05:15: White Blood Count 6.9, Red Blood Count 3.51, Hemoglobin 10.9, Hematocrit 33, Mean Corpuscular Volume 93, Mean Corpuscular Hemoglobin 31, Mean Corpuscular Hemoglobin Concent 33, Red Cell Distribution Width 13.1, Platelet Count 162, Mean Platelet Volume 11.3, Immature Granulocyte % (Auto) 2, Neutrophils (%) (Auto) 76, Lymphocytes (%) (Auto) 12, Monocytes (%) (Auto) 10, Eosinophils (%) (Auto) 0, Basophils (%) (Auto) 0, Neutrophils # (Auto) 5.2, Lymphocytes # (Auto) 0.8, Monocytes # (Auto) 0.7, Eosinophils # (Auto) 0.0, Basophils # (Auto) 0.0, Immature Granulocyte # (Auto) 0.1, Sodium Level 138, Potassium Level 4.0, Chloride Level 105, Carbon Dioxide Level 27, Anion Gap 6, Blood Urea Nitrogen 20, Creatinine 0.73, Estimat Glomerular Filtration Rate 92, BUN/Creatinine Ratio 27, Glucose Level 89, Calcium Level 8.3, Corrected Calcium 8.9, Total Bilirubin 0.4, Aspartate Amino Transf (AST/SGOT) 29, Alanine Aminotransferase (ALT/SGPT) 29, Alkaline Phosphatase 31, Total Protein 6.1, Albumin 3.2 06/10/23 05:50: White Blood Count 8.2, Red Blood Count 3.69, Hemoglobin 11.6, Hematocrit 34, Mean Corpuscular Volume 93, Mean Corpuscular Hemoglobin 31, Mean Corpuscular Hemoglobin Concent 34, Red Cell Distribution Width 13.0, Platelet Count 222, Mean Platelet Volume 11.2, Immature Granulocyte % (Auto) 4, Neutrophils (%) (Auto) 70, Lymphocytes (%) (Auto) 15, Monocytes (%) (Auto) 10, Eosinophils (%) (Auto) 1, Basophils (%) (Auto) 0, Neutrophils # (Auto) 5.7, Lymphocytes # (Auto) 1.2, Monocytes # (Auto) 0.9, Eosinophils # (Auto) 0.1, Basophils # (Auto) 0.0, Immature Granulocyte # (Auto) 0.3, Sodium Level 138, Potassium Level 4.2, Chloride Level 103, Carbon Dioxide Level 27, Anion Gap 8, Blood Urea Nitrogen 23, Creatinine 0.76, Estimat Glomerular Filtration Rate 91, BUN/Creatinine Ratio 30, Glucose Level 88, Calcium Level 8.4, Corrected Calcium 9.1, Total Bilirubin 0.3, Aspartate Amino Transf (AST/SGOT) 27, Alanine Aminotransferase (ALT/SGPT) 29, Alkaline Phosphatase 32, Total Protein 6.2, Albumin 3.1 Discharge Home Medications: Active Scripts Active Reported Aspirin EC (Aspirin) 81 Mg Tablet. 81 Mg PO Q48H Multivitamin 1 Each Tablet 1 Each PO DAILY Midodrine HCl 5 Mg Tablet 5 Mg PO DAILY Finasteride 5 Mg Tablet 5 Mg PO DAILY Levothyroxine Sodium 50 Mcg Tablet 50 Mcg PO DAILY Instructions to patient/family Please see electronic discharge instructions given to patient. BRIDGETT TOBAR DO Jun 10, 2023 09:21
[2023-06-10] MEDS: DOCUSATE SODIUM 100 MG CAPSULE PO SCH (09:42)
[2023-06-10] MEDS: FINASTERIDE 5 MG TABLET PO SCH (09:42)
[2023-06-10] MEDS: guaiFENesin 600 MG TABLET PO SCH (09:42)
[2023-06-10] MEDS: SENNOSIDES 8.6 MG TABLET PO SCH (09:42)
[2023-06-10] MEDS: MIDODRINE 10 MG TABLET PO SCH (09:42)
[2023-06-10] MEDS: dexAMETHasone INJ 10 MG/ML 1 ML VIAL IV SCH (09:42)
== END 2023-06-10 09:56 | disposition swing bed (61) | DRG 177 ==
LOC: EDUNIT# 13:13 → ER 13:17 → CSD 17:09 → 4TH 06-06 17:19
PROVIDERS: ADMIT Internal Medicine; ATTEND Internal Medicine
PROC: 8E0ZXY6 Isolation (ICD-10-PCS; principal; 2023-06-04)
PROC: 5A09357 Assistance with Respiratory Ventilation, Less than 24 Consecutive Hours, Continuous Positive Airway Pressure (ICD-10-PCS; 2023-06-04)
PROC: 3E0333Z Introduction of Anti-inflammatory into Peripheral Vein, Percutaneous Approach (ICD-10-PCS; 2023-06-04)
DX: U07.1 COVID-19 (principal); J12.82 Pneumonia due to coronavirus disease 2019; J96.01 Acute respiratory failure with hypoxia; J15.9 Unspecified bacterial pneumonia; R54 Age-related physical debility; G47.33 Obstructive sleep apnea (adult) (pediatric); I95.9 Hypotension, unspecified; R41.0 Disorientation, unspecified; Z79.82 Long term (current) use of aspirin; Z79.899 Other long term (current) drug therapy; R00.1 Bradycardia, unspecified; G40.909 Epilepsy, unspecified, not intractable, without status epilepticus
CPT/HCPCS: 36415; 70450; 71045; 72125; 80053; 81000; 83605; 85007; 85025; 85027; 85610; 85730; 87040; 87088; 87636; 93005; 93306; 94640; 94660; 94760; 96374; 96375

== ENCOUNTER 2023-06-10 09:10 | Inpatient (IN) | payer MEDICARE ==
[~2023-06-10] VITALS: Ht 180 cm; Wt 72.8 kg
[~2023-06-10 09:10] MED LIST changes: +ASPI-1238 PO; +FINA5TAB6 PO; +LEVO50TA6 PO; +MIDO5TAB3 PO; +MULT-1136 PO
[2023-06-10] MEDS ORDERED: oxyCODONE IMMEDIATE RELEASE 5 MG TABLET PO PRN (10:15)
[2023-06-10] MEDS ORDERED: ONDANSETRON 4 MG ORAL DISSOLVE TABLET PO PRN (10:15)
[2023-06-10] MEDS ORDERED: CALCIUM CARBONATE 500 MG CHEW TABLET PO PRN (10:15)
[2023-06-10] MEDS ORDERED: MELATONIN 3 MG TABLET PO PRN (10:15)
[2023-06-10] MEDS ORDERED: diphenhydrAMINE 25 MG TABLET PO PRN (10:15)
[2023-06-10] MEDS ORDERED: BISACODYL 10 MG SUPPOSITORY PR PRN (10:15)
[2023-06-10] MEDS ORDERED: MILK OF MAGNESIA 400 MG/5 ML 30 ML UDC PO PRN (10:15)
[2023-06-10] MEDS ORDERED: ONDANSETRON INJECTION 4 MG/2 ML (SDV) IV PRN (10:15)
[2023-06-10] MEDS ORDERED: ANTACID SUSPENSION 30 ML UDC PO PRN (10:15)
[2023-06-10] MEDS ORDERED: diphenhydrAMINE INJ 50 MG/ML VIAL IVP PRN (10:15)
[2023-06-10] MEDS ORDERED: ACETAMINOPHEN 325 MG TABLET PO PRN (10:15)
[2023-06-10] MEDS ORDERED: LACTULOSE SYRUP 10GM/15ML 30ML UDC PO PRN (10:15)
[2023-06-10] MEDS: ASPIRIN enteric coated 81MG TABLET PO SCH (10:52)
--- NOTE | 2023-06-10 13:49 | Physical Therapy Evaluation ---
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 1-Wxmfmyjkwb-qycphpz completes the activity by him/herself with no assistance from a helper. 5-Set-up or Clean-up Assistance-helper sets up or cleans up; patient completes activity. [place] assists only prior to or following the activity. 4-Supervision or Touching Assistance-helper provides verbal cues and/or touching/steadying and/or contact guard assistance as patient completes activity. Assistance may be provided throughout the activity or intermittently. 3-Partial/Moderate Assistance-helper does LESS THAN HALF the effort. [place] lifts, holds or supports trunk or limbs, but provides less than half the effort. 2-Substantial/Maximal Assistance-helper does MORE THAN HALF the effort. [place] lifts or holds trunk or limbs and provides more than half the effort. 2-Ezzsmcmwb-uulupn does ALL the effort. Patient does none of the effort to complete the activity. Or, the assistance of 2 or more helpers is required for the patient to complete the activity. If activity was not attempted, code reason: 7-Patient Refused. 9-Not Applicable-not attempted and the patient did not perform the activity before the current illness, exacerbation or injury. 10-Not Attempted due to Environmental Limitations-(lack of equipment, weather restraints, etc.). 88-Not Attempted due to Medical Conditions or Safety Concerns. Bed Mobility: 6 Transfers (B,C,W/C): 6 Gait: 6 Stairs: 4 Indoor Mobility (Ambulation): Independent Stairs: Needed Some Help Prior Devices Use: Walker, Other-see list below (cane) PT Evaluation-Current Subjective Patient agrees to therapy. PT/OT cotreat due to patient minimal activity tolerance. Pain Section J - Health Conditions 1. Rarely or not at all 2. Occasionally 3. Frequently 4. Almost constantly 8. 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 Sensory Vision: Wears Glasses Hearing: Impaired Transfers Roll Left & Right (QC): 3 Sit to Lying (QC): 3 Lying to Sitting/Side of Bed(Q: 3 Sit to Stand (QC): 3 Chair/Guf-nw-Ltopo Xfer(QC): 3 Toilet Transfer (QC): 3 Car Transfer (QC): 3 Gait Mode of Locomotion: Walk Anticipated Mode of Locomotion: Walk Walk 10 feet (QC): 4 Walk 50 ft with 2 Turns(QC): 4 Walk 150 ft (QC): 88 Walking 10ft/uneven surface-QC: 4 Distance: 60' Gait Assistive Device: FWW Comments/Gait Description slow, steady sequence Wheelchair Training Wheel 50 ft with 2 turns (QC): 9 Wheel 150 ft (QC): 9 Stairs 1 Step (curb) (QC): 88 4 Steps (QC): 88 12 Steps (QC): 88 Balance Sitting Static: Normal Sitting Dynamic: Normal Standing Static: Fair Standing Dynamic: Fair Picking up an Object (QC): 9 Treatment Ambulation in room 60' minimal to CGA with use of gait belt and FWW. Patient performed sit to stand x 4 sets mod assist from low surface. Per spouse, patient will have a lift chair upon returning to home. Assessment/Needs Patient will benefit from skilled PT to address functional strength and mobility to improve current LOF to safely return to home with spouse at maximum LOF. Patient currently requires min to mod assist with all mobility. Rehab Potential: Fair PT Retirement Goals Retirement Goals PT Retirement Goals Time Frame: Jul 20, 2023 Roll Left to Right (QC): 6 Sit to Lying (QC): 6 Lying-Sitting on Side/Bed(QC): 6 Sit to Stand (QC): 4 Chair/Rto-xj-Ypsdz Xfer(QC): 4 Toilet/Commode Transfer (QC): 4 Car Transfer (QC): 4 Walk 10 feet (QC): 4 Walk 10ft-Uneven Surface(QC): 4 Walk 50ft with 2 Turns (QC): 4 Walk 150 ft (QC): 4 Wheel 50 feet with 2 turns (QC: 9 Wheel 150 feet: 9 1 Step (curb) (QC): 4 4 Steps (QC): 4 12 Steps (QC): 9 Picking up an Object (QC): 9 PT Plan Problem List Problem List: Activity Tolerance, Functional Strength, Safety, Balance, Gait, Transfer, Bed Mobility Treatment/Plan Treatment Plan: Continue Plan of Care Treatment Plan: Bed Mobility, Education, Functional Activity Emperatriz, Functional Strength, Gait, Safety, Therapeutic Exercise, Transfers Treatment Duration: Jul 20, 2023 Frequency: 6 times per week Estimated Hrs Per Day: .5 hour per day Patient and/or Family Agrees t: Yes Time Time In: 1301 Time Out: 1336 DATE: Jun 10, 2023 Total Billed Treatment Time: 25 Total Billed Treatment 1 visit EVModC 10 min ([id number]) ([id number] OT eval) FA 15 min ([id number] cotreat with OT) GT KEANE PT Jun 10, 2023 13:49
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
[2023-06-10] MEDS: ENOXAPARIN 40 MG/0.4 ML SYRINGE SC SCH (17:47)
[2023-06-10 18:55] VITALS: BP 120/73
[2023-06-10 19:29] VITALS: BP 120/73
[2023-06-10] MEDS: DOCUSATE SODIUM 100 MG CAPSULE PO SCH (20:50)
[2023-06-10] MEDS: guaiFENesin 600 MG TABLET PO SCH (20:50)
[2023-06-10] MEDS: SENNOSIDES 8.6 MG TABLET PO SCH (20:50)
[2023-06-11] MEDS: THERAPEUTIC MULTIVITAMIN W/MINERALS TABLET PO SCH (05:21)
[2023-06-11] MEDS: LEVOTHYROXINE 50 MCG TABLET PO SCH (05:21)
[2023-06-11 07:45] VITALS: BP 113/67
--- NOTE | 2023-06-11 08:20 | Progress Note ---
Subjective Date Seen by a Provider: Jun 11, 2023 Time Seen by a Provider: 11:00 Subjective/Events-last exam Patient feels much better Working with physical therapy a lot better No falls at bedside Out of isolation on Saturday Review of Systems General: Fatigue Objective Exam Last Set of Vital Signs Vital Signs Date Time Temp Pulse Resp B/P (MAP) Pulse Ox O2 Delivery O2 Flow Rate FiO2 06/11/23 07:45 36.6 51 18 113/67 (82) 96 Room Air Capillary Refill : I&O Intake and Output 06/10/23 23:59 Intake Total 1580 ml Output Total 1400 ml Balance 180 ml Intake Oral 1580 ml Output Urine Total 1400 ml General: Alert, Oriented X3, Cooperative, No Acute Distress Lungs: Clear to Auscultation, Normal Air Movement Heart: Regular Rate, Normal S1, Normal S2, No Murmurs Psych/Mental Status: Mental Status NL, Mood NL Assessment/Plan Assessment/Plan Assess & Plan/Chief Complaint Assessment: COVID Weakness Acute respiratory failure now resolved after BiPAP Falls Plan: Supportive care Monitor closely Aggressive therapy BRIDGETT TOBAR DO Jun 11, 2023 08:20
[2023-06-11] MEDS: FINASTERIDE 5 MG TABLET PO SCH (08:58)
[2023-06-11] MEDS: MIDODRINE 10 MG TABLET PO SCH (08:58)
[2023-06-11] MEDS: SENNOSIDES 8.6 MG TABLET PO SCH ×2 (08:58→20:54)
[2023-06-11] MEDS: guaiFENesin 600 MG TABLET PO SCH ×2 (08:58→20:54)
[2023-06-11] MEDS: DOCUSATE SODIUM 100 MG CAPSULE PO SCH ×2 (08:58→20:54)
--- NOTE | 2023-06-11 11:07 | Physical Therapy Daily Note ---
PT Daily Note-Current Subjective Patient just complete with OT session. Agrees to PT. Pain Section J - Health Conditions 1. Rarely or not at all 2. Occasionally 3. Frequently 4. Almost constantly 8. Unable to answer Pain Effect on Sleep: 1 Pain Interference with Therapy: 1 Pain Interference w/Day-to-Day: 1 Transfers SCALE: Activities may be completed with or without assistive devices. 8-Ndwybmqdxj-pbkycpg completes the activity by him/herself with no assistance from a helper. 5-Set-up or Clean-up Assistance-helper sets up or cleans up; patient completes activity. [place] assists only prior to or following the activity. 4-Supervision or Touching Assistance-helper provides verbal cues and/or touching/steadying and/or contact guard assistance as patient completes activity. Assistance may be provided throughout the activity or intermittently. 3-Partial/Moderate Assistance-helper does LESS THAN HALF the effort. [place] lifts, holds or supports trunk or limbs, but provides less than half the effort. 2-Substantial/Maximal Assistance-helper does MORE THAN HALF the effort. [place] lifts or holds trunk or limbs and provides more than half the effort. 5-Iptrpsfhk-hpyvjx does ALL the effort. Patient does none of the effort to complete the activity. Or, the assistance of 2 or more helpers is required for the patient to complete the activity. If activity was not attempted, code reason: 7-Patient Refused. 9-Not Applicable-not attempted and the patient did not perform the activity be fore the current illness, exacerbation or injury. 10-Not Attempted due to Environmental Limitations-(lack of equipment, weather restraints, etc.). 88-Not Attempted due to Medical Conditions or Safety Concerns. Sit to Stand (QC): 4 Chair/Pgk-ze-Maapj Xfer(QC): 4 Weight Bearing Right Lower Extremity: Right Full Weight Bearing Left Lower Extremity: Left Full Weight Bearing bilateral AFO's Gait Training Distance: 50' Walk 10 feet (QC): 4 Walk 50 ft with 2 Turns(QC): 4 Gait Assistive Device: FWW slow, slightly unsteady gait/CGA for safety. Exercises Seated Therapy Exercises: Long arc quads, Hip flexion Seated Reps: 15 Assessment Patient up in recliner with spouse present. Patient tolerated treatment well. PT Skiver Operator Goals Detention Goals PT Detention Goals Time Frame: Jul 20, 2023 Roll Left & Right (QC): 6 Sit to Lying (QC): 6 Lying-Sitting on Side/Bed(QC): 6 Sit to Stand (QC): 4 Chair/Shz-dr-Jjnbi Xfer(QC): 4 Toilet Transfer (QC): 4 Car Transfer (QC): 4 Does the Patient Walk: Yes Walk 10 feet (QC): 4 Walk 50ft with 2 Turns (QC): 4 Walk 150 ft (QC): 4 Walking 10ft on Uneven Surface: 4 1 Step (curb) (QC): 4 4 Steps (QC): 4 12 Steps (QC): 9 Picking up an Object (QC): 9 Wheel 50 feet with 2 turns (QC: 9 Wheel 150 feet: 9 PT Plan Treatment/Plan Treatment Plan: Continue Plan of Care Treatment Plan: Bed Mobility, Education, Functional Activity Emperatriz, Functional Strength, Gait, Safety, Therapeutic Exercise, Transfers Treatment Duration: Jul 20, 2023 Frequency: 6 times per week Estimated Hrs Per Day: .5 hour per day Patient and/or Family Agrees t: Yes Time Time In: 1026 Time Out: 1041 DATE: Jun 11, 2023 Total Billed Treatment Time: 15 Total Billed Treatment 1 visit FA 15 min GT KEANE PT Jun 11, 2023 11:06
--- NOTE | 2023-06-11 11:31 | Occupational Ther Daily Note ---
OT Current Status-Daily Note Subjective Agreeable to OT, supine in bed, request OOB for bathroom needs Pain Numeric Pain Scale: 0-No Pain Mental Status/Objective Patient Orientation: Person, Place, Time, Situation ADL-Treatment Ambulated to bathroom to toilet, wash hands, face and return to recliner Therapy Code Descriptions/Definitions Functional [place] Measure: 0=Not Assessed/NA 4=Minimal Assistance 1=Total Assistance 5=Supervision or Setup 2=Maximal Assistance 6=Modified [place] 3=Moderate Assistance 7=Complete IndependenceSCALE: Activities may be completed with or without assistive devices. 2-[place]-ahqqewj completes the activity by him/herself with no assistance from a helper. 5-Set-up or Clean-up Assistance-helper sets up or cleans up; patient completes activity. [place] assists only prior to or following the activity. 4-Supervision or Touching Assistance-helper provides verbal cues and/or touching/steadying and/or contact guard assistance as patient completes activity. Assistance may be provided throughout the activity or intermittently. 3-Partial/Moderate Assistance-helper does LESS THAN HALF the effort. [place] lifts, holds or supports trunk or limbs, but provides less than half the effort. 2-Substantial/Maximal Assistance-helper does MORE THAN HALF the effort. [place] lifts or holds trunk or limbs and provides more than half the effort. 2-Ypxrppmjw-ldjnxo does ALL the effort. Patient does none of the effort to complete the activity. Or, the assistance of 2 or more helpers is required for the patient to complete the activity. If activity was not attempted, code reason: 7-Patient Refused. 9-Not Applicable-not attempted and the patient did not perform the activity before the current illness, exacerbation or injury. 10-Not Attempted due to Environmental Limitations-(lack of equipment, weather restraints, etc.). 88-Not Attempted due to Medical Conditions or Safety Concerns. Eating (QC): 6 Oral Hygiene (QC): 4 (standing at sink w/ FWW, VC for directions for FWW use and safety) Upper Body Dressing (QC): 4 Lower Body Dressing (QC): 4 On/Off Footwear: 4 (extra time) Toileting Hygiene (QC): 3 Toilet Transfer (QC): 4 (FWW over toilet) Education OT Patient Education: Correct positioning, Modified ADL techniques, Progress toward Goal/Update tx plan, Purpose of tx/functional activities, Reviewed precautions, Rehab process, Safety issues, Transfer techniques Teaching Recipient: Patient Teaching Methods: Discussion Response to Teaching: Reinforcement Needed OT Gum Rolling Machine Operator Goals Gum Rolling Machine Operator Goals Eating (QC): 5 Oral Hygiene (QC): 5 Toileting Hygiene (QC): 4 Shower/Bathe Self (QC): 4 Upper Body Dressing (QC): 5 Lower Body Dressing (QC): 4 On/Off Footwear (QC): 4 1=Demonstrate adherence to instructed precautions during ADL tasks. 2=Patient will verbalize/demonstrate understanding of assistive devices/modifications for ADL. 3=Patient will improve strength/tolerance for activity to enable patient to perform ADL's. OT Education/Plan Problem List/Assessment Assessment: Decreased Activ Tolerance, Decreased Safety Aware, Impaired Cognition, Impaired Coordination, Impaired Funct Balance, Impaired Self-Care Skills Discharge Recommendations Plan/Recommendations: Continue POC Treatment Plan/Plan of Care Treatment,Training & Education: Yes Patient would benefit from OT for education, treatment and training to promote independence in ADL's, mobility, safety and/or upper extremity function for ADL's. Plan of Care: ADL Retraining, Functional Mobility, Group Exercise/Act as Ind, UE Funct Exercise/Act Treatment Duration: Jun 28, 2023 Frequency: At least 5 of 7 days/Wk (IRF) Estimated Hrs Per Day: .25 hour per day Rehab Potential: Fair Time Start Time: 10:05 Stop Time: 10:25 DATE: Jun 11, 2023 Total Time Billed (hr/min): 20 Billed Treatment Time ADL 20 min ZHENG HARDIN OT Jun 11, 2023 11:31
[2023-06-11 14:07] VITALS: BP 113/67
[2023-06-11] MEDS: ENOXAPARIN 40 MG/0.4 ML SYRINGE SC SCH (18:18)
[2023-06-11 19:20] VITALS: BP 113/68
--- NOTE | 2023-06-12 05:26 | Progress Note ---
Subjective Date Seen by a Provider: Jun 12, 2023 Time Seen by a Provider: 11:00 Subjective/Events-last exam Patient doing well Out of isolation on Saturday prison will be ready on Saturday Reviewed meds and labs No falls Eating and drinking better Review of Systems General: Fatigue, Malaise Objective Exam Last Set of Vital Signs Vital Signs Date Time Temp Pulse Resp B/P (MAP) Pulse Ox O2 Delivery O2 Flow Rate FiO2 06/11/23 21:32 Room Air 06/11/23 19:20 36.8 59 20 113/68 (83) 95 Capillary Refill : I&O Intake and Output 06/12/23 00:00 Intake Total 1480 ml Output Total 1450 ml Balance 30 ml Intake Oral 1480 ml Output Urine Total 1450 ml # Voids 5 General: Alert, Oriented X3, Cooperative, No Acute Distress Lungs: Clear to Auscultation, Normal Air Movement Heart: Regular Rate, Normal S1, Normal S2, No Murmurs Psych/Mental Status: Mental Status NL, Mood NL Assessment/Plan Assessment/Plan Assess & Plan/Chief Complaint Assessment: COVID Weakness Acute respiratory failure now resolved after BiPAP Falls BPH GERD Plan: Supportive care Monitor closely Aggressive therapy prison on Saturday BRIDGETT TOBAR DO Jun 12, 2023 05:26
[2023-06-12] MEDS: THERAPEUTIC MULTIVITAMIN W/MINERALS TABLET PO SCH (05:49)
[2023-06-12] MEDS: LEVOTHYROXINE 50 MCG TABLET PO SCH (05:49)
[2023-06-12 08:17] VITALS: BP 110/68
[2023-06-12] MEDS: MIDODRINE 10 MG TABLET PO SCH (10:00)
[2023-06-12] MEDS: FINASTERIDE 5 MG TABLET PO SCH (10:00)
[2023-06-12] MEDS: DOCUSATE SODIUM 100 MG CAPSULE PO SCH ×2 (10:01→20:25)
[2023-06-12] MEDS: SENNOSIDES 8.6 MG TABLET PO SCH ×2 (10:01→20:25)
[2023-06-12] MEDS: guaiFENesin 600 MG TABLET PO SCH ×2 (10:01→20:25)
[2023-06-12] MEDS: ASPIRIN enteric coated 81MG TABLET PO SCH (10:13)
--- NOTE | 2023-06-12 11:13 | Physical Therapy Daily Note ---
PT Daily Note-Current Subjective Pt found seated in recliner /c family present upon entry. Agreed to PT. Reports that he slept "easy" last night. No reports of pain pre-treatment. Pain Section J - Health Conditions 1. Rarely or not at all 2. Occasionally 3. Frequently 4. Almost constantly 8. Unable to answer Pain Effect on Sleep: 1 Pain Interference with Therapy: 1 Pain Interference w/Day-to-Day: 1 Mental Status Patient Orientation: Person Transfers SCALE: Activities may be completed with or without assistive devices. 5-Yxjzayfrbv-csgqjbs completes the activity by him/herself with no assistance from a helper. 5-Set-up or Clean-up Assistance-helper sets up or cleans up; patient completes activity. [place] assists only prior to or following the activity. 4-Supervision or Touching Assistance-helper provides verbal cues and/or touching/steadying and/or contact guard assistance as patient completes activity. Assistance may be provided throughout the activity or intermittently. 3-Partial/Moderate Assistance-helper does LESS THAN HALF the effort. [place] lifts, holds or supports trunk or limbs, but provides less than half the effort. 2-Substantial/Maximal Assistance-helper does MORE THAN HALF the effort. [place] lifts or holds trunk or limbs and provides more than half the effort. 9-Vdphnqnia-tyuate does ALL the effort. Patient does none of the effort to complete the activity. Or, the assistance of 2 or more helpers is required for the patient to complete the activity. If activity was not attempted, code reason: 7-Patient Refused. 9-Not Applicable-not attempted and the patient did not perform the activity before the current illness, exacerbation or injury. 10-Not Attempted due to Environmental Limitations-(lack of equipment, weather restraints, etc.). 88-Not Attempted due to Medical Conditions or Safety Concerns. Sit to Stand (QC): 3 Weight Bearing Right Lower Extremity: Right Full Weight Bearing Left Lower Extremity: Left Full Weight Bearing bilateral AFO's Gait Training Does the Patient Walk?: Yes Distance: 50 Walk 10 feet (QC): 4 Walk 50 ft with 2 Turns(QC): 4 Gait Persons Needed: 1 Gait Assistive Device: FWW Treatments Seated Therapeutic Exercises (B) x 10ea: - LAQs - Marching - Heel/toe raises - Hip add - Heel slides Assessment Current Status: Good Progress Pt attempts to perform sit to stand transfer from recliner multiples but does so unsuccessfully. He required MIN assist for lifting to complete. Pt ambulated 50 feet /c use of a FWW and required CGA due to strength and balance deficits. Pt occasionally displays B toe drag during ambulation. Pt then returned to recliner and performed seated therapeutic exercises. Pt displays good overall tolerance to treatment. Pt left in recliner /c call light in place, family present, and all needs met post-treatment. Continue to progress pt per POC. PT Half-Way Goals Bread Oven Operator Goals PT Bread Oven Operator Goals Time Frame: Jul 20, 2023 Roll Left & Right (QC): 6 Sit to Lying (QC): 6 Lying-Sitting on Side/Bed(QC): 6 Sit to Stand (QC): 4 Chair/Etr-sn-Wgkgp Xfer(QC): 4 Toilet Transfer (QC): 4 Car Transfer (QC): 4 Does the Patient Walk: Yes Walk 10 feet (QC): 4 Walk 50ft with 2 Turns (QC): 4 Walk 150 ft (QC): 4 Walking 10ft on Uneven Surface: 4 1 Step (curb) (QC): 4 4 Steps (QC): 4 12 Steps (QC): 9 Picking up an Object (QC): 9 Wheel 50 feet with 2 turns (QC: 9 Wheel 150 feet: 9 PT Plan Treatment/Plan Treatment Plan: Continue Plan of Care Treatment Plan: Bed Mobility, Education, Functional Activity Emperatriz, Functional Strength, Gait, Safety, Therapeutic Exercise, Transfers Treatment Duration: Jul 20, 2023 Frequency: 6 times per week Estimated Hrs Per Day: .5 hour per day Patient and/or Family Agrees t: Yes Time Time In: 1031 Time Out: 1054 DATE: Jun 12, 2023 Total Billed Treatment Time: 23 Total Billed Treatment 1 visit GT x 1 EX x 1 BEBO ALMARAZ POULTRY PINNER Jun 12, 2023 11:13
--- NOTE | 2023-06-12 14:47 | Occupational Ther Daily Note ---
OT Current Status-Daily Note Subjective Agreeable to OT Pain Numeric Pain Scale: 0-No Pain Mental Status/Objective Patient Orientation: Person, Place, Time, Situation ADL-Treatment Therapy Code Descriptions/Definitions Functional [place] Measure: 0=Not Assessed/NA 4=Minimal Assistance 1=Total Assistance 5=Supervision or Setup 2=Maximal Assistance 6=Modified [place] 3=Moderate Assistance 7=Complete IndependenceSCALE: Activities may be completed with or without assistive devices. 2-Ueajxuvpbn-sflrdga completes the activity by him/herself with no assistance from a helper. 5-Set-up or Clean-up Assistance-helper sets up or cleans up; patient completes activity. [place] assists only prior to or following the activity. 4-Supervision or Touching Assistance-helper provides verbal cues and/or touching/steadying and/or contact guard assistance as patient completes activity. Assistance may be provided throughout the activity or intermittently. 3-Partial/Moderate Assistance-helper does LESS THAN HALF the effort. [place] lifts, holds or supports trunk or limbs, but provides less than half the effort. 2-Substantial/Maximal Assistance-helper does MORE THAN HALF the effort. [place] lifts or holds trunk or limbs and provides more than half the effort. 7-Yyqcqxuru-ybodlw does ALL the effort. Patient does none of the effort to complete the activity. Or, the assistance of 2 or more helpers is required for the patient to complete the activity. If activity was not attempted, code reason: 7-Patient Refused. 9-Not Applicable-not attempted and the patient did not perform the activity before the current illness, exacerbation or injury. 10-Not Attempted due to Environmental Limitations-(lack of equipment, weather restraints, etc.). 88-Not Attempted due to Medical Conditions or Safety Concerns. Other Treatment RED therapy band for brick burner head and pinch strength, elbow flexion/extension, shoulder extension. 10x3 reps w/ RB between sets of reps. verbalized understanding and reports bands used at home Education OT Patient Education: Exercise program, Instructions to caregiver, Progress toward Goal/Update tx plan, Purpose of tx/functional activities, Reviewed precautions, Rehab process Teaching Recipient: Patient, Family Teaching Methods: Demonstration, Discussion Response to Teaching: Reinforcement Needed OT Assisted Goals Assisted Goals Acute change in mental status: 0 Inattention: 0 Disorganized thinkin Altered level of consciousness: 0 Eating (QC): 5 Oral Hygiene (QC): 5 Toileting Hygiene (QC): 4 Shower/Bathe Self (QC): 4 Upper Body Dressing (QC): 5 Lower Body Dressing (QC): 4 On/Off Footwear (QC): 4 1=Demonstrate adherence to instructed precautions during ADL tasks. 2=Patient will verbalize/demonstrate understanding of assistive devices/modifications for ADL. 3=Patient will improve strength/tolerance for activity to enable patient to perform ADL's. OT Education/Plan Problem List/Assessment Assessment: Decreased Activ Tolerance, Decreased UE Strength, Impaired Self- Care Skills, Restricted Funct UE ROM Discharge Recommendations Plan/Recommendations: Continue POC Treatment Plan/Plan of Care Patient would benefit from OT for education, treatment and training to promote independence in ADL's, mobility, safety and/or upper extremity function for ADL's. Plan of Care: ADL Retraining, Functional Mobility, Group Exercise/Act as Ind, UE Funct Exercise/Act Treatment Duration: Jun 28, 2023 Frequency: At least 5 of 7 days/Wk (IRF) Estimated Hrs Per Day: .25 hour per day Rehab Potential: Fair Time Start Time: 13:15 Stop Time: 13:35 DATE: Jun 12, 2023 Total Time Billed (hr/min): 20 Billed Treatment Time EX 20 min ZHENG HARDIN OT Jun 12, 2023 14:47
[2023-06-12] MEDS: ENOXAPARIN 40 MG/0.4 ML SYRINGE SC SCH (18:45)
[2023-06-12 19:09] VITALS: BP 157/78
[2023-06-12 20:00] VITALS: BP 126/68
--- NOTE | 2023-06-13 05:19 | Progress Note ---
Subjective Date Seen by a Provider: Jun 13, 2023 Time Seen by a Provider: 10:00 Subjective/Events-last exam Moved out of isolation Improved overall Increased strength Objective Exam Last Set of Vital Signs Vital Signs Date Time Temp Pulse Resp B/P (MAP) Pulse Ox O2 Delivery O2 Flow Rate FiO2 06/12/23 21:00 Room Air 06/12/23 20:00 36.7 85 20 126/68 (87) 94 Capillary Refill : I&O Intake and Output 06/13/23 00:00 Intake Total 1600 ml Output Total 900 ml Balance 700 ml Intake Oral 1600 ml Output Urine Total 900 ml # Voids 5 # Urine Diapers 1 General: Alert, Oriented X3, Cooperative, No Acute Distress Lungs: Clear to Auscultation Heart: Regular Rate Psych/Mental Status: Mental Status NL Assessment/Plan Assessment/Plan Assess & Plan/Chief Complaint Assessment: COVID Weakness Acute respiratory failure now resolved after BiPAP [place] BPH GERD Plan: Supportive care Monitor closely [facility] BRIDGETT TOBAR DO Jun 13, 2023 05:19
[2023-06-13] MEDS: LEVOTHYROXINE 50 MCG TABLET PO SCH (05:51)
[2023-06-13] MEDS: THERAPEUTIC MULTIVITAMIN W/MINERALS TABLET PO SCH (05:51)
[2023-06-13 07:14] VITALS: BP 113/68
[2023-06-13] MEDS: SENNOSIDES 8.6 MG TABLET PO SCH ×2 (08:41→19:37)
[2023-06-13] MEDS: MIDODRINE 10 MG TABLET PO SCH (08:42)
[2023-06-13] MEDS: guaiFENesin 600 MG TABLET PO SCH ×2 (08:42→20:13)
[2023-06-13] MEDS: DOCUSATE SODIUM 100 MG CAPSULE PO SCH ×2 (08:42→19:37)
[2023-06-13] MEDS: FINASTERIDE 5 MG TABLET PO SCH (08:42)
--- NOTE | 2023-06-13 09:29 | Physical Therapy Daily Note ---
PT Daily Note-Current Subjective Pt now out of isolation. Agreeable to ambulation. Pain Section J - Health Conditions 1. Rarely or not at all 2. Occasionally 3. Frequently 4. Almost constantly 8. Unable to answer Pain Effect on Sleep: 1 Pain Interference with Therapy: 1 Pain Interference w/Day-to-Day: 1 Transfers SCALE: Activities may be completed with or without assistive devices. 2-Ozstprdxso-rwbpbay completes the activity by him/herself with no assistance from a helper. 5-Set-up or Clean-up Assistance-helper sets up or cleans up; patient completes activity. [place] assists only prior to or following the activity. 4-Supervision or Touching Assistance-helper provides verbal cues and/or touching/steadying and/or contact guard assistance as patient completes activity. Assistance may be provided throughout the activity or intermittently. 3-Partial/Moderate Assistance-helper does LESS THAN HALF the effort. [place] lifts, holds or supports trunk or limbs, but provides less than half the effort. 2-Substantial/Maximal Assistance-helper does MORE THAN HALF the effort. [place] lifts or holds trunk or limbs and provides more than half the effort. 0-Hreznrvpn-woxivn does ALL the effort. Patient does none of the effort to complete the activity. Or, the assistance of 2 or more helpers is required for the patient to complete the activity. If activity was not attempted, code reason: 7-Patient Refused. 9-Not Applicable-not attempted and the patient did not perform the activity bef ore the current illness, exacerbation or injury. 10-Not Attempted due to Environmental Limitations-(lack of equipment, weather r estraints, etc.). 88-Not Attempted due to Medical Conditions or Safety Concerns. Transferrred in/out of bed with Min Assist and cues for technique Weight Bearing Right Lower Extremity: Right Full Weight Bearing Left Lower Extremity: Left Full Weight Bearing bilateral AFO's Gait Training Ambulate 150ft with FWW and CGA. Pt did not wear (B) AFOs so did have some foot drop after fatigue. Assessment Pt is progressing with strength and mobility. He will benefit from continued therapy. PT Paperboard Machine Operator Goals Paperboard Machine Operator Goals PT Senior Care Goals Time Frame: Jul 20, 2023 Roll Left & Right (QC): 6 Sit to Lying (QC): 6 Lying-Sitting on Side/Bed(QC): 6 Sit to Stand (QC): 4 Chair/Plr-ei-Mbcfu Xfer(QC): 4 Toilet Transfer (QC): 4 Car Transfer (QC): 4 Does the Patient Walk: Yes Walk 10 feet (QC): 4 Walk 50ft with 2 Turns (QC): 4 Walk 150 ft (QC): 4 Walking 10ft on Uneven Surface: 4 1 Step (curb) (QC): 4 4 Steps (QC): 4 12 Steps (QC): 9 Picking up an Object (QC): 9 Wheel 50 feet with 2 turns (QC: 9 Wheel 150 feet: 9 PT Plan Treatment/Plan Treatment Plan: Continue Plan of Care Treatment Plan: Bed Mobility, Education, Functional Activity Emperatriz, Functional Strength, Gait, Safety, Therapeutic Exercise, Transfers Treatment Duration: Jul 20, 2023 Frequency: 6 times per week Estimated Hrs Per Day: .5 hour per day Patient and/or Family Agrees t: Yes Time Time In: 905 Time Out: 920 DATE: Jun 13, 2023 Total Billed Treatment Time: 15 Total Billed Treatment visit, gait 15 min ДМИТРИЙ BARRIENTOS PT Jun 13, 2023 09:29
[2023-06-13] MEDS: ENOXAPARIN 40 MG/0.4 ML SYRINGE SC SCH (17:59)
[2023-06-13 19:51] VITALS: BP 111/63
[2023-06-14] MEDS: THERAPEUTIC MULTIVITAMIN W/MINERALS TABLET PO SCH (05:52)
[2023-06-14] MEDS: LEVOTHYROXINE 50 MCG TABLET PO SCH (05:52)
--- NOTE | 2023-06-14 06:38 | Progress Note ---
Subjective Date Seen by a Provider: Jun 14, 2023 Time Seen by a Provider: 11:00 Subjective/Events-last exam Patient doing well Family thinks he can go home on home health on Saturday Out of isolation Labs normal Review of Systems General: Fatigue Objective Exam Last Set of Vital Signs Vital Signs Date Time Temp Pulse Resp B/P (MAP) Pulse Ox O2 Delivery O2 Flow Rate FiO2 06/13/23 20:13 Room Air 06/13/23 19:51 37.0 68 17 111/63 (79) 94 Capillary Refill : I&O Intake and Output 06/14/23 00:00 Intake Total 2090 ml Output Total 500 ml Balance 1590 ml Intake Oral 2090 ml Output Urine Total 500 ml # Voids 6 # Bowel Movements 1 General: Alert, Oriented X3, Cooperative, No Acute Distress, Other (Thin and chronically ill and frail) Lungs: Clear to Auscultation, Normal Air Movement Heart: Regular Rate, Normal S1, Normal S2, No Murmurs Psych/Mental Status: Mental Status NL, Mood NL Assessment/Plan Assessment/Plan Assess & Plan/Chief Complaint Assessment: COVID Weakness Acute respiratory failure now resolved after BiPAP [place] BPH GERD Plan: Supportive care Monitor closely Aggressive therapy [facility] on Saturday or home health BRIDGETT TOBAR DO Jun 14, 2023 06:38
[2023-06-14 07:04] LABS: BASOPHILS % (AUTO) 0 % (0-10); EOSINOPHILS # (AUTO) 0.1 10^3/uL (0.0-0.3); EOSINOPHILS % (AUTO) 1 % (0-10); HEMATOCRIT 36 % (40-54); HEMOGLOBIN 12.5 g/dL (13.3-17.7); LYMPHOCYTES # (AUTO) 0.9 10^3/uL (1.0-4.0); LYMPHOCYTES % (AUTO) 11 % (12-44); MEAN CORPUSCULAR HEMOGLOBIN 31 pg (25-34); MEAN CORPUSCULAR HGB CONC 34 g/dL (32-36); MEAN CORPUSCULAR VOLUME 92 fL (80-99); MEAN PLATELET VOLUME 9.8 fL (9.0-12.2); MONOCYTES # (AUTO) 0.6 10^3/uL (0.0-1.0); MONOCYTES % (AUTO) 7 % (0-12); NEUTROPHILS # (AUTO) 6.9 10^3/uL (1.8-7.8); NEUTROPHILS % (AUTO) 78 % (42-75); PLATELET COUNT 247 10^3/uL (130-400); WHITE BLOOD COUNT 8.8 10^3/uL (4.3-11.0)
[2023-06-14 07:16] LABS: ALBUMIN 3.5 GM/DL (3.2-4.5); BILIRUBIN,TOTAL 0.5 MG/DL (0.1-1.0); CALCIUM 8.7 MG/DL (8.5-10.1); CREATININE SERUM 0.75 MG/DL (0.60-1.30); POTASSIUM 4.6 MMOL/L (3.6-5.0); TOTAL PROTEIN 6.9 GM/DL (6.4-8.2)
[2023-06-14 07:52] VITALS: BP 96/59
[2023-06-14 08:07] VITALS: BP 96/59
[2023-06-14] MEDS ORDERED: RT-Ipratropium/Albuterol NEB 3 ML VIAL INH PRN (08:15)
[2023-06-14] MEDS: FINASTERIDE 5 MG TABLET PO SCH (08:45)
[2023-06-14] MEDS: DOCUSATE SODIUM 100 MG CAPSULE PO SCH ×2 (08:45→20:04)
[2023-06-14] MEDS: SENNOSIDES 8.6 MG TABLET PO SCH ×2 (08:45→20:04)
[2023-06-14] MEDS: MIDODRINE 10 MG TABLET PO SCH (08:45)
[2023-06-14] MEDS: ASPIRIN enteric coated 81MG TABLET PO SCH (08:45)
[2023-06-14] MEDS: guaiFENesin 600 MG TABLET PO SCH ×2 (08:45→20:04)
--- NOTE | 2023-06-14 10:22 | Physical Therapy Daily Note ---
PT Daily Note-Current Subjective Pt is in the chair, agreeable to treatment. Pain Section J - Health Conditions 1. Rarely or not at all 2. Occasionally 3. Frequently 4. Almost constantly 8. Unable to answer Pain Effect on Sleep: 1 Pain Interference with Therapy: 1 Pain Interference w/Day-to-Day: 1 Mental Status Patient Orientation: Person, Place, Time, Situation Transfers SCALE: Activities may be completed with or without assistive devices. 4-Ryzcgeieat-ytiwpqf completes the activity by him/herself with no assistance from a helper. 5-Set-up or Clean-up Assistance-helper sets up or cleans up; patient completes activity. [place] assists only prior to or following the activity. 4-Supervision or Touching Assistance-helper provides verbal cues and/or touching/steadying and/or contact guard assistance as patient completes ac tivity. Assistance may be provided throughout the activity or intermittently. 3-Partial/Moderate Assistance-helper does LESS THAN HALF the effort. [place] lifts, holds or supports trunk or limbs, but provides less than half the effort. 2-Substantial/Maximal Assistance-helper does MORE THAN HALF the effort. [place] lifts or holds trunk or limbs and provides more than half the effort. 8-Fryerryai-wghuwk does ALL the effort. Patient does none of the effort to complete the activity. Or, the assistance of 2 or more helpers is required for the patient to complete the activity. If activity was not attempted, code reason: 7-Patient Refused. 9-Not Applicable-not attempted and the patient did not perform the activity before the current illness, exacerbation or injury. 10-Not Attempted due to Environmental Limitations-(lack of equipment, weather restraints, etc.). 88-Not Attempted due to Medical Conditions or Safety Concerns. Sit to Stand (QC): 4 Weight Bearing Right Lower Extremity: Right Full Weight Bearing Left Lower Extremity: Left Full Weight Bearing bilateral AFO's Gait Training Does the Patient Walk?: Yes Distance: 200ft Gait Persons Needed: 1 Gait Assistive Device: FWW (L) foot drop observed after 50ft. (R) LE over adducts in swing phase. Wheelchair Training Does the Pt Use a Wheelchair?: No Exercises Seated Therapy Exercises: LE Protocol Seated Reps: 20 Able to perform seated ankle DF for 20 reps with full ROM. Assessment Current Status: Good Progress No shortness of breath or fatigue noted. Pt has AFO's but his took them home. PT Alf Goals Supervisor Post Wave Goals PT Alf Goals Time Frame: Jul 20, 2023 Roll Left & Right (QC): 6 Sit to Lying (QC): 6 Lying-Sitting on Side/Bed(QC): 6 Sit to Stand (QC): 4 Chair/Ifv-cp-Thgqa Xfer(QC): 4 Toilet Transfer (QC): 4 Car Transfer (QC): 4 Does the Patient Walk: Yes Walk 10 feet (QC): 4 Walk 50ft with 2 Turns (QC): 4 Walk 150 ft (QC): 4 Walking 10ft on Uneven Surface: 4 1 Step (curb) (QC): 4 4 Steps (QC): 4 12 Steps (QC): 9 Picking up an Object (QC): 9 Wheel 50 feet with 2 turns (QC: 9 Wheel 150 feet: 9 PT Plan Treatment/Plan Treatment Plan: Continue Plan of Care Treatment Plan: Bed Mobility, Education, Functional Activity Emperatriz, Functional Strength, Gait, Safety, Therapeutic Exercise, Transfers Treatment Duration: Jul 20, 2023 Frequency: 6 times per week Estimated Hrs Per Day: .5 hour per day Patient and/or Family Agrees t: Yes Time Time In: 08 Time Out: 0845 DATE: Jun 14, 2023 Total Billed Treatment Time: 15 Total Billed Treatment 1, gt 15 RYDER [place] PT Jun 14, 2023 10:22
--- NOTE | 2023-06-14 11:14 | Occupational Ther Daily Note ---
OT Current Status-Daily Note Subjective AGREEABLE TO OT FOR THER EX Mental Status/Objective Patient Orientation: Person, Place, Time, Situation ADL-Treatment Therapy Code Descriptions/Definitions Functional [place] Measure: 0=Not Assessed/NA 4=Minimal Assistance 1=Total Assistance 5=Supervision or Setup 2=Maximal Assistance 6=Modified [place] 3=Moderate Assistance 7=Complete IndependenceSCALE: Activities may be completed with or without assistive devices. 1-Pxvragxcnl-actujtn completes the activity by him/herself with no assistance from a helper. 5-Set-up or Clean-up Assistance-helper sets up or cleans up; patient completes activity. [place] assists only prior to or following the activity. 4-Supervision or Touching Assistance-helper provides verbal cues and/or touching/steadying and/or contact guard assistance as patient completes activity. Assistance may be provided throughout the activity or intermittently. 3-Partial/Moderate Assistance-helper does LESS THAN HALF the effort. [place] lifts, holds or supports trunk or limbs, but provides less than half the effort. 2-Substantial/Maximal Assistance-helper does MORE THAN HALF the effort. [place] lifts or holds trunk or limbs and provides more than half the effort. 6-Kwqyhqhpu-ljzcqh does ALL the effort. Patient does none of the effort to complete the activity. Or, the assistance of 2 or more helpers is required for the patient to complete the activity. If activity was not attempted, code reason: 7-Patient Refused. 9-Not Applicable-not attempted and the patient did not perform the activity before the current illness, exacerbation or injury. 10-Not Attempted due to Environmental Limitations-(lack of equipment, weather restraints, etc.). 88-Not Attempted due to Medical Conditions or Safety Concerns. Other Treatment RED therapy band, elbow/shoulder flexion/extension 10 x3 with OT instructing patient modifications for home. 5 timesw sit/stand for mm memory, endurance, balance and strength for ADLS/transfers Education OT Patient Education: Exercise program, Progress toward Goal/Update tx plan, Purpose of tx/functional activities, Reviewed precautions, Rehab process, Safety issues, Transfer techniques, Use of adapted equipment Teaching Recipient: Patient, Family Teaching Methods: Demonstration, Discussion Response to Teaching: Reinforcement Needed OT [facility] Goals Transformer Inspector Goals Acute change in mental status: 0 Inattention: 0 Disorganized thinkin Altered level of consciousness: 0 Eating (QC): 5 Oral Hygiene (QC): 5 Toileting Hygiene (QC): 4 Shower/Bathe Self (QC): 4 Upper Body Dressing (QC): 5 Lower Body Dressing (QC): 4 On/Off Footwear (QC): 4 1=Demonstrate adherence to instructed precautions during ADL tasks. 2=Patient will verbalize/demonstrate understanding of assistive devices/modifications for ADL. 3=Patient will improve strength/tolerance for activity to enable patient to perform ADL's. OT Education/Plan Problem List/Assessment Assessment: Decreased Activ Tolerance, Decreased UE Strength, Impaired Coordination, Impaired Funct Balance, Impaired Self-Care Skills, Restricted Funct UE ROM Discharge Recommendations Plan/Recommendations: Continue POC Treatment Plan/Plan of Care Treatment,Training & Education: Yes Patient would benefit from OT for education, treatment and training to promote independence in ADL's, mobility, safety and/or upper extremity function for ADL's. Plan of Care: ADL Retraining, Functional Mobility, Group Exercise/Act as Ind, UE Funct Exercise/Act Treatment Duration: Jun 28, 2023 Frequency: At least 5 of 7 days/Wk (IRF) Estimated Hrs Per Day: .25 hour per day Agreement: Yes Rehab Potential: Fair Time Start Time: 10:50 Stop Time: 11:13 DATE: Jun 14, 2023 Total Time Billed (hr/min): 23 Billed Treatment Time EX 23 min ZHENG HARDIN OT Jun 14, 2023 11:14
[2023-06-14] MEDS: ENOXAPARIN 40 MG/0.4 ML SYRINGE SC SCH (18:04)
[2023-06-14 19:17] VITALS: BP 103/61
[2023-06-15] MEDS: LEVOTHYROXINE 50 MCG TABLET PO SCH (06:09)
[2023-06-15] MEDS: THERAPEUTIC MULTIVITAMIN W/MINERALS TABLET PO SCH (06:09)
--- NOTE | 2023-06-15 06:19 | Progress Note ---
Subjective Date Seen by a Provider: Jun 15, 2023 Time Seen by a Provider: 11:00 Subjective/Events-last exam Patient doing really well Moving around much better Discharge plan on Saturday with home health Review of Systems General: Fatigue Objective Exam Last Set of Vital Signs Vital Signs Date Time Temp Pulse Resp B/P (MAP) Pulse Ox O2 Delivery O2 Flow Rate FiO2 06/14/23 20:17 Room Air 06/14/23 19:17 36.9 62 20 103/61 (75) 96 06/14/23 08:07 21 06/14/23 08:04 0.00 Capillary Refill : I&O Intake and Output 06/15/23 00:00 Intake Total 1530 ml Output Total 200 ml Balance 1330 ml Intake Oral 1530 ml Output Urine Total 200 ml # Voids 4 # Urine Diapers 1 General: Alert, Oriented X3, Cooperative, No Acute Distress, Other (Flat affect and subtle dementia) Lungs: Clear to Auscultation Heart: Regular Rate Psych/Mental Status: Mental Status NL Results Lab Laboratory Tests 06/14/23 06:51: White Blood Count 8.8, Red Blood Count 3.98L, Hemoglobin 12.5L, Hematocrit 36L, Mean Corpuscular Volume 92, Mean Corpuscular Hemoglobin 31, Mean Corpuscular Hemoglobin Concent 34, Red Cell Distribution Width 13.0, Platelet Count 247, Mean Platelet Volume 9.8, Immature Granulocyte % (Auto) 3, Neutrophils (%) (Auto) 78H, Lymphocytes (%) (Auto) 11L, Monocytes (%) (Auto) 7, Eosinophils (%) (Auto) 1, Basophils (%) (Auto) 0, Neutrophils # (Auto) 6.9, Lymphocytes # (Auto) 0.9L, Monocytes # (Auto) 0.6, Eosinophils # (Auto) 0.1, Basophils # (Auto) 0.0, Immature Granulocyte # (Auto) 0.3H, Sodium Level 138, Potassium Level 4.6, Chloride Level 106, Carbon Dioxide Level 23, Anion Gap 9, Blood Urea Nitrogen 25H, Creatinine 0.75, Estimat Glomerular Filtration Rate 91, BUN/Creatinine Ratio 33, Glucose Level 96, Calcium Level 8.7, Corrected Calcium 9.1, Total Bilirubin 0.5, Aspartate Amino Transf (AST/SGOT) 21, Alanine Aminotransferase (ALT/SGPT) 34, Alkaline Phosphatase 41, Total Protein 6.9, Albumin 3.5 Assessment/Plan Assessment/Plan Assess & Plan/Chief Complaint Assessment: COVID Weakness Acute respiratory failure now resolved after BiPAP [place] BPH GERD Plan: Supportive care Monitor closely Aggressive therapy long term on Saturday or home health BRDIGETT TOBAR DO Jun 15, 2023 06:19
[2023-06-15 07:12] VITALS: BP 131/79
[2023-06-15] MEDS: SENNOSIDES 8.6 MG TABLET PO SCH ×2 (08:33→20:34)
[2023-06-15] MEDS: FINASTERIDE 5 MG TABLET PO SCH (08:33)
[2023-06-15] MEDS: guaiFENesin 600 MG TABLET PO SCH ×2 (08:33→20:34)
[2023-06-15] MEDS: DOCUSATE SODIUM 100 MG CAPSULE PO SCH ×2 (08:33→20:34)
[2023-06-15] MEDS: MIDODRINE 10 MG TABLET PO SCH (08:33)
--- NOTE | 2023-06-15 10:21 | Physical Therapy Daily Note ---
PT Daily Note-Current Subjective Pt is in bed on arrival. His is present and requesting that he gets up to walk and to the chair. Pt denies pain on arrival or at departure. Pain Section J - Health Conditions 1. Rarely or not at all 2. Occasionally 3. Frequently 4. Almost constantly 8. Unable to answer Pain Effect on Sleep: 1 Pain Interference with Therapy: 1 Pain Interference w/Day-to-Day: 1 Mental Status Patient Orientation: Person, Place Transfers SCALE: Activities may be completed with or without assistive devices. 1-Wvuqvaqgsu-lkqvboy completes the activity by him/herself with no assistance from a helper. 5-Set-up or Clean-up Assistance-helper sets up or cleans up; patient completes activity. [place] assists only prior to or following the activity. 4-Supervision or Touching Assistance-helper provides verbal cues and/or touching/steadying and/or contact guard assistance as patient completes activity. Assistance may be provided throughout the activity or intermittently. 3-Partial/Moderate Assistance-helper does LESS THAN HALF the effort. [place] lifts, holds or supports trunk or limbs, but provides less than half the effort. 2-Substantial/Maximal Assistance-helper does MORE THAN HALF the effort. [place] lifts or holds trunk or limbs and provides more than half the effort. 6-Yhgnqbfzh-tkuram does ALL the effort. Patient does none of the effort to complete the activity. Or, the assistance of 2 or more helpers is required for the patient to complete the activity. If activity was not attempted, code reason: 7-Patient Refused. 9-Not Applicable-not attempted and the patient did not perform the activity before the current illness, exacerbation or injury. 10-Not Attempted due to Environmental Limitations-(lack of equipment, weather restraints, etc.). 88-Not Attempted due to Medical Conditions or Safety Concerns. Roll Left & Right (QC): 4 Sit to Lying (QC): 4 Lying to Sitting/Side of Bed(Q: 4 Sit to Stand (QC): 4 Chair/Ugd-tt-Iuwda Xfer(QC): 4 Weight Bearing Right Lower Extremity: Right Full Weight Bearing Left Lower Extremity: Left Full Weight Bearing bilateral AFO's Gait Training Does the Patient Walk?: Yes Distance: 250ft Gait Persons Needed: 1 Gait Assistive Device: FWW Ataxia observed with (R) hip adduction on each step. Pt wearing AFOs and shoes today. Exercises Seated Therapy Exercises: LE Protocol Seated Reps: 15 Assessment Current Status: Good Progress Inconsistent steps with gait. Pt has to slow his gait to correct for (R) LE adduction during gait. Min assist for bed mobility and transfers due to stiffness in the back and UEs. PT Nursing Home Goals Nursing Home Goals PT Nursing Home Goals Time Frame: Jul 20, 2023 Roll Left & Right (QC): 6 Sit to Lying (QC): 6 Lying-Sitting on Side/Bed(QC): 6 Sit to Stand (QC): 4 Chair/Meo-ad-Selet Xfer(QC): 4 Toilet Transfer (QC): 4 Car Transfer (QC): 4 Does the Patient Walk: Yes Walk 10 feet (QC): 4 Walk 50ft with 2 Turns (QC): 4 Walk 150 ft (QC): 4 Walking 10ft on Uneven Surface: 4 1 Step (curb) (QC): 4 4 Steps (QC): 4 12 Steps (QC): 9 Picking up an Object (QC): 9 Wheel 50 feet with 2 turns (QC: 9 Wheel 150 feet: 9 PT Plan Treatment/Plan Treatment Plan: Continue Plan of Care Treatment Plan: Bed Mobility, Education, Functional Activity Emperatriz, Functional Strength, Gait, Safety, Therapeutic Exercise, Transfers Treatment Duration: Jul 20, 2023 Frequency: 6 times per week Estimated Hrs Per Day: .5 hour per day Patient and/or Family Agrees t: Yes Time Time In: 930 Time Out: 945 DATE: Jun 15, 2023 Total Billed Treatment Time: 15 Total Billed Treatment 1, gt 15 RYDER [place] PT Jun 15, 2023 10:21
[2023-06-15 11:16] VITALS: BP 103/58
[2023-06-15] MEDS: ENOXAPARIN 40 MG/0.4 ML SYRINGE SC SCH (17:41)
[2023-06-15 20:11] VITALS: BP 124/68
[2023-06-16] MEDS: LEVOTHYROXINE 50 MCG TABLET PO SCH (05:50)
[2023-06-16] MEDS: THERAPEUTIC MULTIVITAMIN W/MINERALS TABLET PO SCH (05:51)
--- NOTE | 2023-06-16 06:34 | Progress Note ---
Subjective Date Seen by a Provider: Jun 16, 2023 Time Seen by a Provider: 11:00 Subjective/Events-last exam Patient doing well Denies any pain Sleeping in chair Objective Exam Last Set of Vital Signs Vital Signs Date Time Temp Pulse Resp B/P (MAP) Pulse Ox O2 Delivery O2 Flow Rate FiO2 06/15/23 22:21 Room Air 06/15/23 20:11 37.0 57 18 124/68 (86) 97 06/14/23 08:07 21 06/14/23 08:04 0.00 Capillary Refill : I&O Intake and Output 06/16/23 00:00 Intake Total 1490 ml Output Total 1250 ml Balance 240 ml Intake Oral 1490 ml Output Urine Total 1250 ml # Voids 4 General: Alert, Cooperative, No Acute Distress, Other (Poor recall) Lungs: Clear to Auscultation, Normal Air Movement Psych/Mental Status: Mental Status NL ( baseline) Assessment/Plan Assessment/Plan Assess & Plan/Chief Complaint Assessment: COVID Weakness Acute respiratory failure now resolved after BiPAP Falls BPH GERD Dementia Plan: Supportive care Monitor closely Aggressive therapy retirement on Saturday or home health BRIDGETT TOBAR DO Jun 16, 2023 06:34
[2023-06-16 07:15] VITALS: BP 141/88
[2023-06-16] MEDS: FINASTERIDE 5 MG TABLET PO SCH (08:06)
[2023-06-16] MEDS: guaiFENesin 600 MG TABLET PO SCH ×2 (08:06→20:12)
[2023-06-16] MEDS: SENNOSIDES 8.6 MG TABLET PO SCH ×2 (08:06→20:12)
[2023-06-16] MEDS: DOCUSATE SODIUM 100 MG CAPSULE PO SCH ×2 (08:06→20:12)
[2023-06-16] MEDS: MIDODRINE 10 MG TABLET PO SCH (08:06)
[2023-06-16] MEDS: ASPIRIN enteric coated 81MG TABLET PO SCH (10:06)
[2023-06-16 16:04] VITALS: BP 116/68
[2023-06-16] MEDS: ENOXAPARIN 40 MG/0.4 ML SYRINGE SC SCH (17:10)
[2023-06-16 19:49] VITALS: BP 116/68
--- NOTE | 2023-06-17 04:58 | Discharge Summary ---
Diagnosis/Chief Complaint Date of Admission Jun 10, 2023 at 10:15 Date of Discharge Discharge Date: Jun 17, 2023 Discharge Diagnosis Assessment: COVID Weakness Acute respiratory failure now resolved after BiPAP Falls BPH GERD Dementia Discharge Summary Discharge Physical Examination Allergies: Coded Allergies: No Known Drug Allergies (Unverified , 07/13/19) Vitals & I&Os Vital Signs Date Time Temp Pulse Resp B/P (MAP) Pulse Ox O2 Delivery O2 Flow Rate FiO2 06/17/23 10:50 36.2 58 16 115/59 94 Room Air 0.00 06/14/23 08:07 21 General Appearance: Alert, Cooperative Respiratory: Clear to Auscultation Cardiovascular: Regular Rate Hospital Course Was the Problem List Reviewed?: Yes Patient had an uneventful swing bed hospital course he was admitted following COVID and ultimately isolation was discontinued. PT and OT initiated and home medications were restarted. Overall flat affect from dementia precludes anything but a poor prognosis long-term considering his advanced age but he was discharged home on home care. Labs (last 24 hrs) Laboratory Tests 06/14/23 06:51: White Blood Count 8.8, Red Blood Count 3.98L, Hemoglobin 12.5L, Hematocrit 36L, Mean Corpuscular Volume 92, Mean Corpuscular Hemoglobin 31, Mean Corpuscular Hemoglobin Concent 34, Red Cell Distribution Width 13.0, Platelet Count 247, Mean Platelet Volume 9.8, Immature Granulocyte % (Auto) 3, Neutrophils (%) (Auto) 78H, Lymphocytes (%) (Auto) 11L, Monocytes (%) (Auto) 7, Eosinophils (%) (Auto) 1, Basophils (%) (Auto) 0, Neutrophils # (Auto) 6.9, Lymphocytes # (Auto) 0.9L, Monocytes # (Auto) 0.6, Eosinophils # (Auto) 0.1, Basophils # (Auto) 0.0, Immature Granulocyte # (Auto) 0.3H, Sodium Level 138, Potassium Level 4.6, Chl oride Level 106, Carbon Dioxide Level 23, Anion Gap 9, Blood Urea Nitrogen 25H, Creatinine 0.75, Estimat Glomerular Filtration Rate 91, BUN/Creatinine Ratio 33, Glucose Level 96, Calcium Level 8.7, Corrected Calcium 9.1, Total Bilirubin 0.5, Aspartate Amino Transf (AST/SGOT) 21, Alanine Aminotransferase (ALT/SGPT) 34, Alkaline Phosphatase 41, Total Protein 6.9, Albumin 3.5 Pending Labs Laboratory Tests 06/14/23 06:51: White Blood Count 8.8, Red Blood Count 3.98, Hemoglobin 12.5, Hematocrit 36, Mean Corpuscular Volume 92, Mean Corpuscular Hemoglobin 31, Mean Corpuscular Hemoglobin Concent 34, Red Cell Distribution Width 13.0, Platelet Count 247, Mean Platelet Volume 9.8, Immature Granulocyte % (Auto) 3, Neutrophils (%) (Auto) 78, Lymphocytes (%) (Auto) 11, Monocytes (%) (Auto) 7, Eosinophils (%) (Auto) 1, Basophils (%) (Auto) 0, Neutrophils # (Auto) 6.9, Lymphocytes # (Auto) 0.9, Monocytes # (Auto) 0.6, Eosinophils # (Auto) 0.1, Basophils # (Auto) 0.0, Immature Granulocyte # (Auto) 0.3, Sodium Level 138, Potassium Level 4.6, Chloride Level 106, Carbon Dioxide Level 23, Anion Gap 9, Blood Urea Nitrogen 25, Creatinine 0.75, Estimat Glomerular Filtration Rate 91, BUN/Creatinine Ratio 33, Glucose Level 96, Calcium Level 8.7, Corrected Calcium 9.1, Total Bilirubin 0.5, Aspartate Amino Transf (AST/SGOT) 21, Alanine Aminotransferase (ALT/SGPT) 34, Alkaline Phosphatase 41, Total Protein 6.9, Albumin 3.5 Discharge Home Medications: Active Scripts Active Reported Aspirin EC (Aspirin) 81 Mg Tablet.dr 81 Mg PO Q48H Multivitamin 1 Each Tablet 1 Each PO DAILY Midodrine HCl 5 Mg Tablet 5 Mg PO DAILY Finasteride 5 Mg Tablet 5 Mg PO DAILY Levothyroxine Sodium 50 Mcg Tablet 50 Mcg PO DAILY Instructions to patient/family Please see electronic discharge instructions given to patient. BRIDGETT TOBAR DO Jun 17, 2023 04:58
--- NOTE | 2023-06-17 04:58 | D/C HH Face to Face Order ---
D/C Face to Face Orders Reconcile Patient Problems Problems Reviewed?: Yes Instructions for Patient Via [facility], Patient Instructions/FollowUp: pcp as scheduled Physician to follow Patient: pcp Discharge Diet for Home: No Restrictions Patient Problems: covid Patient Data-Allergies,Ht & Wt Patient Allergies: Coded Allergies: No Known Drug Allergies (Unverified , 07/13/19) Home Health Need/Face to Face Date of Face to Face: Jun 17, 2023 Clinical Findings: Generalized weakness and fatigue I have seen Pt nzwv-ga-ltnw: Yes Discharged To: Home Diagnosis/Conditions: covid Patient is Homebound due to: CognItive deficits, Muscle weakness Homebound Status Due to the above stated illness, injury or surgical procedure (medical condition or diagnosis) and associated clinical findings, the patient is homebound because of his/her inability to leave home except with aid of a supportive device and/or person AND leaving the home requires a considerable and taxing effort or is medically contraindicated. Pt req the following assistanc: [facility] Nursing Orders Home Health Services Order: Nursing Services, Stockroom Attendant-Evaluate & Treat, Physical Therapy-Evaluate & Treat Certify Stmt I certify that this patient is under my care and that I, a nurse practitioner or a physician; a rehab assistant working with me, had a face to face encounter that - meets the physician face to face encounter requirements with this patient as dated. BRIDGETT TOBAR DO Jun 17, 2023 04:58
[2023-06-17] MEDS: LEVOTHYROXINE 50 MCG TABLET PO SCH (06:05)
[2023-06-17] MEDS: THERAPEUTIC MULTIVITAMIN W/MINERALS TABLET PO SCH (06:05)
[2023-06-17 07:13] VITALS: BP 115/59
--- NOTE | 2023-06-17 07:19 | Therapy Team Discharge Summary ---
Therapy Discharge Summary Discharge Recommendations Date of Discharge Physical Therapy Patient to dismiss to home with spouse and home health. Upon initial evaluation patient required min to mod assist with all gross motor activity and was unable to ambulate functional distance due to poor function endurance. Patient's goals address. Patient is currently at SBA to modified independent with all functional mobility and spouse is motivated that patient is close to baseline. Roll Left to Right (QC): 4 Sit to Lying (QC): 4 Lying to Sitting/Side of Bed(Q: 4 Sit to Stand (QC): 4 Chair/Kfm-ic-Hiiqa Xfer(QC): 4 Toilet Transfer (QC): 4 Car Transfer (QC): 4 Does the Patient Walk: Yes Mode of Locomotion: Walk Anticipated Mode of Locomotion: Walk Walk 10 feet (QC): 4 Walk 50 ft with 2 Turns(QC): 4 Walk 150 ft (QC): 4 Walking 10ft on uneven surface: 4 Distance: 250 Gait Assistive Device: FWW Does the Pt Use a Wheelchair: No Wheel 50 ft with 2 turns (QC): 9 Wheel 150 ft (QC): 9 1 Step (curb) (QC): 4 4 Steps (QC): 88 12 Steps (QC): 88 Balance Sitting Static: Normal Balance Sitting Dynamic: Normal Balance-Standing Static: Fair Picking up an Object (QC): 9 Occupational Therapy Decreased Activ Tolerance, Decreased UE Strength, Impaired Coordination, Impai red Funct Balance, Impaired Self-Care Skills, Restricted Funct UE ROM Eating (QC): 6 Oral Hygiene (QC): 4 (standing at sink w/ FWW, VC for directions for FWW use and safety) Shower/Bathe Self (QC): 7 Upper Body Dressing (QC): 4 Lower Body Dressing (QC): 4 On/Off Footwear (QC): 4 (extra time) Toileting Hygiene (QC): 3 PT Jail Goals Services Tech Goals PT Jail Goals Time Frame: Jul 20, 2023 Roll Left to Right (QC): 6 Sit to Lying (QC): 6 Lying-Sitting on Side/Bed(QC): 6 Sit to Stand (QC): 4 Chair/Hbx-un-Vtiyl Xfer(QC): 4 Toilet/Commode Transfer (QC): 4 Car Transfer (QC): 4 Does the Patient Walk: Yes Walk 10 feet (QC): 4 Walk 10ft-Uneven Surface(QC): 4 Walk 50ft with 2 Turns (QC): 4 Walk 150 ft (QC): 4 Wheel 50 feet with 2 turns (QC: 9 Wheel 150 feet: 9 1 Step (curb) (QC): 4 4 Steps (QC): 4 12 Steps (QC): 9 Picking up an Object (QC): 9 OT Jail Goals Services Tech Goals Acute change in mental status: 0 Inattention: 0 Disorganized thinkin Altered level of consciousness: 0 Eating (QC): 5 Oral Hygiene (QC): 5 Toileting Hygiene (QC): 4 Shower/Bathe Self (QC): 4 Upper Body Dressing (QC): 5 Lower Body Dressing (QC): 4 On/Off Footwear (QC): 4 1=Demonstrate adherence to instructed precautions during ADL tasks. 2=Patient will verbalize/demonstrate understanding of assistive devices/modifications for ADL. 3=Patient will improve strength/tolerance for activity to enable patient to perform ADL's. GT KEANE PT Jun 17, 2023 07:19
[2023-06-17] MEDS: DOCUSATE SODIUM 100 MG CAPSULE PO SCH (08:15)
[2023-06-17] MEDS: SENNOSIDES 8.6 MG TABLET PO SCH (08:15)
[2023-06-17] MEDS: guaiFENesin 600 MG TABLET PO SCH (08:15)
[2023-06-17] MEDS: MIDODRINE 10 MG TABLET PO SCH (08:15)
[2023-06-17] MEDS: FINASTERIDE 5 MG TABLET PO SCH (08:15)
[2023-06-17 10:50] VITALS: BP 115/59
== END 2023-06-17 10:50 | disposition home health service (06) | DRG 177 ==
LOC: 4TH 10:15
PROVIDERS: ADMIT Internal Medicine; ATTEND Internal Medicine
PROC: 8E0ZXY6 Isolation (ICD-10-PCS; principal; 2023-06-10)
DX: U07.1 COVID-19 (principal); J12.82 Pneumonia due to coronavirus disease 2019; J96.01 Acute respiratory failure with hypoxia; F03.90 Unspecified dementia, unspecified severity, without behavioral disturbance, psychotic disturbance, mood disturbance, and anxiety; N40.0 Benign prostatic hyperplasia without lower urinary tract symptoms; K21.9 Gastro-esophageal reflux disease without esophagitis; I95.9 Hypotension, unspecified; Z79.82 Long term (current) use of aspirin; Z79.899 Other long term (current) drug therapy; E03.9 Hypothyroidism, unspecified; Z79.890 Hormone replacement therapy; G47.33 Obstructive sleep apnea (adult) (pediatric); R41.0 Disorientation, unspecified
CPT/HCPCS: 36415; 80053; 85025; 94760

== ENCOUNTER 2023-06-21 14:37 | Emergency (ER) | payer MEDICARE ==
[~2023-06-21] VITALS: Ht 177 cm; Wt 72.8 kg
[2023-06-21] MEDS ORDERED: LIDOCAINE 2% w/EPI 1:100,000 20 ML VIAL INJ ONE (14:45)
--- NOTE | 2023-06-21 14:57 | ED Head Injury ---
General Chief Complaint: Trauma-Non Activation Stated Complaint: HEAD LAC Nursing Triage Note: PT TRIPPED AND FELL AND HIT HIS HEAD ON A CURB ON THE LEFT SIDE. Source: patient, family Exam Limitations: no limitations History of Present Illness Date Seen by Provider: Jun 21, 2023 Time Seen by Provider: 14:39 Initial Comments 78-year-old male with past medical history of spinal cord injury that is disabled, uses a walker with difficulty coming in after a fall. He was try to walk around without his walker, fell and hit his head on the curve. This occurred shortly prior to arrival. He had a fall roughly 2 weeks ago as well. Does not take any blood thinners. Did not pass out, remembers all events, denies any headache or any significant pain anywhere. Has been ambulatory since the incident. Tetanus was updated in 2021. Location Injury Occurred: [facility] Allergies and Home Medications Allergies Coded Allergies: No Known Drug Allergies (Unverified , 07/13/19) Patient Home Medication List Home Medication List Reviewed: Yes Aspirin (Aspirin EC) 81 Mg Tablet.dr, 81 MG PO Q48H, (Reported) Entered as Reported by: ELIO JOHNSON on 06/05/23 144 Finasteride (Finasteride) 5 Mg Tablet, 5 MG PO DAILY, (Reported) Entered as Reported by: ELIO JOHNSON on 06/05/231440 Levothyroxine Sodium (Levothyroxine Sodium) 50 Mcg Tablet, 50 MCG PO DAILY, (Reported) Entered as Reported by: ELIO JOHNSON on 06/05/23 144 Midodrine HCl (Midodrine HCl) 5 Mg Tablet, 5 MG PO DAILY, (Reported) Entered as Reported by: ELIO JOHNSON on 06/05/23 144 Multivitamin (Multivitamin) 1 Each Tablet, 1 EACH PO DAILY, (Reported) Entered as Reported by: ELIO JOHNSON on 06/05/231440 Review of Systems Review of Systems Constitutional: No fever Eyes: No Symptoms Reported Ears, Nose, Mouth, Throat: no symptoms reported Respiratory: no symptoms reported Cardiovascular: no symptoms reported Gastrointestinal: no symptoms reported Genitourinary: no symptoms reported Musculoskeletal: no symptoms reported Skin: see HPI Psychiatric/Neurological: No Symptoms Reported Endocrine: No Symptoms Reported Past Yjndxqb-Krxreb-Nudifg Hx Patient Social History Tobacco Use?: No Use of E-Cig and/or Vaping dev: No Substance use?: No Alcohol Use?: No Pt feels they are or have been: No Immunizations Up To Date Influenza Vaccine Up-to-Date: No; Not Current First/Initial COVID19 Vaccinat: RECEIVED, UNK WHEN Second COVID19 Vaccination Delfino: RECEIVED, UNK WHEN Third COVID19 Vaccination Date: RECEIVED, UNK WHEN Seasonal Allergies Seasonal Allergies: No Past Medical History Surgeries: Yes (neck/spinal surgery, hernia repair) Orthopedic Respiratory: Yes Sleep Apnea Currently Using CPAP: Yes Currently Using BIPAP: No Cardiac: Yes (LOW B/P) Neurological: Yes Spinal Cord Injury Genitourinary: No Benign Prostatic Hyperpl Gastrointestinal: Yes Chronic Constipation Musculoskeletal: Yes Back Injury Endocrine: No Hypothyroidsim HEENT: No Cancer: No Psychosocial: No Integumentary: No Family Medical History No Pertinent Family Hx Physical Exam Vital Signs Vital Signs - First Documented Capillary Refill : Less Than 3 Seconds Height, Weight, BMI Height: '" Weight: lbs. oz. kg; 23.00 BMI Method: General Appearance: WD/WN, no apparent distress HEENT: PERRL/EOMI, normal ENT inspection, pharynx normal Neck: non-tender, full range of motion, supple, normal inspection Cardiovascular: regular rate, rhythm, no edema Respiratory: chest non-tender, lungs clear, normal breath sounds, no respiratory distress, no accessory muscle use Gastrointestinal: normal bowel sounds, non tender, soft Back: normal inspection, no CVA tenderness, no vertebral tenderness Extremities: normal range of motion, non-tender, normal inspection, no pedal edema, no calf tenderness, normal capillary refill Psychiatric: alert, oriented x 3 Crainal Nerves: normal hearing, normal speech, PERRL Coordination/Gait: normal finger to nose, normal gait (at patient's baseline) Motor/Sensory: no motor deficit, no sensory deficit, no pronator drift Skin: normal color, warm/dry, other (3cm superficial laceration to the posterior skull) Nilda Coma Score Best Eye Response: (4) Open Spontaneously Best Verbal Response: (5) Oriented Best Motor Response: (6) Obeys Commands Procedures/Interventions Wound Location: Scalp Other Wound Location posterior occiput Wound Length (cm): 3 Wound's Depth, Shape: superficial Wound Explored: clean Irrigated w/ Saline (ccs): 500 Anesthesia: Lidocaine w/ Epi Volume Anesthetic (ccs): 4 Staple Repair: Stapler 35W Progress Sick liliya used. Patient tolerated this well. Progress/Results/Core Measures Results/Orders My Orders Orders - STEVEN JOHNSON MD Lidocaine 2% W/Epi 1:100,000 (Xylocaine/ (06/21/23 14:45) Ct Head/Cervical Spine Wo (06/21/23 14:42) Medications Given in ED Current Medications Medications Dose Ordered Sig/Jonnie Route Start Time Stop Time Status Last Admin Dose Admin Lidocaine/ Epinephrine 20 ml ONCE ONCE INJ 06/21/23 14:45 06/21/23 14:46 DC 06/21/23 14:56 20 ML Vital Signs/I&O 06/21/23 06/21/23 14:40 14:40 Temp 36.6 36.6 Pulse 92 92 Resp 16 16 B/P (MAP) 134/72 (92) 134/72 (92) Pulse Ox 97 97 O2 Delivery Room Air Room Air Blood Pressure Mean: 92 Progress Progress Note : Progress Note 78-year-old male with above history coming in after mechanical fall hitting the back of his head. ABCs were intact and vitals are stable on presentation with a GCS of 15. CT head and cervical spine ordered due to his age. The wound was cleaned, anesthetized, and closed with liliya. Patient tolerated this well. His tetanus is up-to-date. On my interpretation of the CT imaging I do not see any obvious intracranial hemorrhage or cervical spine fracture. The radiologist also read as negative for acute findings. I believe the patient is stable for discharge with outpatient follow-up. He was sent home with strict return precautions. He is at his baseline at the time of discharge. Diagnostic Imaging Diagonstic Imaging: CT (head and c spine) Comments NAME: LETI GONSALES MED REC#: [id number] PT STATUS: REG ER : 1945 PHYSICIAN: STEVEN JOHNSON MD ADMIT DATE: 06/21/23/ER FS Draft Date of Exam:06/21/23 CT HEAD/CERVICAL SPINE WO PROCEDURE: CT head and CT cervical spine without contrast. TECHNIQUE: Multiple contiguous axial images were obtained through the brain and cervical spine without the use of intravenous contrast. Sagittal and coronal reformations through the cervical spine were then performed. Auto Exposure Controls were utilized during the CT exam to meet ALARA standards for radiation dose reduction. INDICATION: Fall, with head and neck injury and head and neck pain. COMPARISON: Correlation is made with prior exam from 06/04/2023. CT HEAD: Scalp liliya in the left posterior parietal region are noted. The ventricles and sulci are within normal limits. There is no sulcal effacement or midline shift. No acute intra-axial or extra-axial hemorrhage is detected. Cisterns are patent. The visualized paranasal sinuses are clear. IMPRESSION: No acute intracranial process is detected. CT CERVICAL SPINE: Curvature of the cervical spine is normal. There are postop changes of ACDF from C4 through C7. Hardware is intact. No fracture or loosening is seen. Bony structures are intact. There is significant degenerative disc disease at the C3-C4 level with disc space narrowing and marginal spurring. There is multilevel facet arthropathy. Prevertebral tissues are normal. Odontoid appears to be intact. IMPRESSION: Postoperative changes in the cervical spine and degenerative changes. No acute bony abnormality is detected. Dictated on workstation # [id number] Dict: 06/21/23 1513 Trans: 06/21/23 1519 [id number] Interpreted by: EMELI CROFT MD Electronically signed by: Departure Impression Primary Impression: Scalp laceration Qualified Codes: S01.01XA - Laceration without foreign body of scalp, initial encounter Disposition: HOME, SELF-CARE Condition: Stable Departure-Patient Inst. Decision time for Depature: 15:30 Referrals: CONSUELO RICHARD MD (PCP) Primary Care Physician Patient Instructions: Laceration Repair With [facility] Add. Discharge Instructions: Come back to the ER in 10 to 14 days to get the liliya removed, or you can go back to your regular doctor. Take Tylenol as needed for pain. TSEVEN JOHNSON MD Jun 21, 2023 14:57
--- NOTE | 2023-06-21 15:20 | Diagnostic Imaging Report ---
PROCEDURE: CT head and CT cervical spine without contrast. TECHNIQUE: Multiple contiguous axial images were obtained through the brain and cervical spine without the use of intravenous contrast. Sagittal and coronal reformations through the cervical spine were then performed. Auto Exposure Controls were utilized during the CT exam to meet ALARA standards for radiation dose reduction. INDICATION: Fall, with head and neck injury and head and neck pain. COMPARISON: Correlation is made with prior exam from 06/04/2023. CT HEAD: Scalp liliya in the left posterior parietal region are noted. The ventricles and sulci are within normal limits. There is no sulcal effacement or midline shift. No acute intra-axial or extra-axial hemorrhage is detected. Cisterns are patent. The visualized paranasal sinuses are clear. IMPRESSION: No acute intracranial process is detected. CT CERVICAL SPINE: Curvature of the cervical spine is normal. There are postop changes of ACDF from C4 through C7. Hardware is intact. No fracture or loosening is seen. Bony structures are intact. There is significant degenerative disc disease at the C3-C4 level with disc space narrowing and marginal spurring. There is multilevel facet arthropathy. Prevertebral tissues are normal. Odontoid appears to be intact. IMPRESSION: Postoperative changes in the cervical spine and degenerative changes. No acute bony abnormality is detected. Dictated by: Dictated on workstation # [id number]
[2023-06-21 15:25] VITALS: BP 134/72
== END 2023-06-21 15:25 | disposition home or self-care (01) ==
LOC: EDUNIT# 14:37 → ER FS 14:38
DX: S01.01XA Laceration without foreign body of scalp, initial encounter (principal); G47.30 Sleep apnea, unspecified; Z99.89 Dependence on other enabling machines and devices; W01.198A Fall on same level from slipping, tripping and stumbling with subsequent striking against other object, initial encounter
CPT/HCPCS: 70450; 72125